=== PATIENT | male | born 1965 | race Caucasian/White ===

== ENCOUNTER 2023-02-04 15:23 | Outpatient (OUT) | payer OTHER, SELFPAY ==
[2023-01-25 12:11] LABS: Prostate Specific Antigen Dx 1.86 ng/mL (<=4.00)
== END 2023-02-04 15:24 | disposition home or self-care (01) ==
LOC: LAB 15:23
PROVIDERS: PCP Family Medicine
DX: N40.1 Benign prostatic hyperplasia with lower urinary tract symptoms (principal); Z79.01 Long term (current) use of anticoagulants; N52.9 Male erectile dysfunction, unspecified
CPT/HCPCS: 36415; 84153

== ENCOUNTER 2024-01-29 07:36 | Outpatient (OUT) | payer OTHER, SELFPAY ==
[2024-01-29 10:11] LABS: Prostate Specific Antigen Dx 1.87 ng/mL (<=4.00)
== END 2024-01-29 07:37 | disposition home or self-care (01) ==
LOC: LAB 07:37
PROVIDERS: PCP Family Medicine; Visit Provider Physician Assistant
DX: N40.1 Benign prostatic hyperplasia with lower urinary tract symptoms (principal)
CPT/HCPCS: 36415; 84153

== ENCOUNTER 2025-02-12 08:46 | Outpatient (OUT) | payer OTHER, SELFPAY ==
--- OUTSIDE RECORDS SUMMARY | 2025-02-12 08:48 | XMS_ITS | Clinical Summary ---
Author Organization [facility] Address [id number] [address] 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 3 9 Active therapeutic multivitamin (THERAGRAN) tablet Take 1 tablet by mouth in the morning. 4 Active FLUoxetine (PROzac) 20 mg capsule Take 1 capsule (20 mg total) by mouth in the morning. Active vitamins A,C,S-qpuv-mjjeav (HEALTHY EYES SUPERVISION) 14,320226-200 udkh-mh-tkak capsule Take 1 capsule by mouth in the morning and 1 capsule before bedtime. Active lamoTRIgine (LaMICtal) 150 mg tablet Take 1 tablet (150 mg total) by mouth in the morning. Active omeprazole (PriLOSEC) 40 mg capsule Take 1 capsule (40 mg total) by mouth every morning before breakfast. Active cetirizine (ZyrTEC) 10 mg tablet Take 1 tablet (10 mg total) by mouth as needed. Active aspirin 81 mg Take 1 tablet (81 mg total) by mouth in the morning. Active tamsulosin (FLOMAX) 0.4 mg capsule Take 2 capsules (0.8 mg total) by mouth nightly. 180 capsule 3 5 Active metoprolol succinate XL (TOPROL XL) 25 mg 24 hr tablet Take 1 tablet (25 mg total) by mouth in the morning. Active tadalafiL (CIALIS) 5 mg tablet Take 1 tablet (5 mg total) by mouth in the morning. 90 tablet 3 Active Active Problems Problem Noted Date Diagnosed Date Benign prostatic hyperplasia with lower urinary tract symptoms 07/02/2024 Urologic disorders 04/15/2024 Overview (12/03/2024): 1. 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 Estrada urologist [facility] Flomax 0.4 mg daily also with use of hyoscyamine 0.125 mg 3 times daily p.r.n. and metoprolol 2. with children ED, hypertension, smoking complicated by heart racing with Viagra and failure Viagra with prior urologist 3. Intolerance Viagra secondary to arrhythmias 3. with children with left varicocele 4. Flow 07/07/2024 peak and mean 8.3 and 3.9 PVR 16 low voided volume 110 5. Right simple renal cyst retroperitoneal ultrasound 07/07/2024 Encounters Date Type Department Care Team Description 12/03/2024 10:15 AM EDT Office Visit [facility] [address] [place] [address] [place] [address] Km García Jr., MD Urologic disorders (Primary Dx); Benign prostatic hyperplasia with nocturia from Last 3 Months Social History Tobacco Use Types Packs/Day Years Used Date Smoking Tobacco: Never Smokeless Tobacco: Current Chew Tobacco Cessation:Ready to Q uit: Not Asked; Counseling Given: Not Answered Alcohol Use Standard Drinks/Week Comments Yes 6 (1 standard drink = 0.6 oz pur e alcohol) 6 beers a week Childcare Answer Date Recorded Childcare Unknown 12/02/2018 Employment Answer Date Recorded Employment Unknown 12/02/2018 Hunger Screening Answer Date Recorded Within the past 12 months we worried whether our food would run out before we got money to buy more. Never True 12/03/2024 Within the past 12 months th e food we bought just didn't last and we didn't have money to get more. Never True 12/03/2024 Purpose - Life Answer Date Recorded Purpose and direction in life Unknown Sex and Gender Information Value Date Recorded Sex Assigned at Not on file Legal Sex Male 11:42 AM EDT Gender Identity Not on file Sexual Orientation Not on file Last Filed Vital Signs Vital Sign Reading Time Taken Comments Blood Pressure 132/77 09/03/2024 11:59 AM EDT Pulse 75 09/03/2024 11:59 AM EDT Temperature - - Respiratory Rate - - Oxygen Saturation 97% 03/15/2019 3:17 PM EDT Inhaled Oxygen Concentration - - Weight 122 kg (269 lb) 12/03/2024 10:33 AM EDT Height 188 cm (6' 2 ) 12/03/2024 10:33 AM EDT Body Mass Index 34.54 12/03/2024 10:33 AM EDT Plan of Treatment Upcoming Encounters Date Type Department Care Team (Late st Contact Info) Description 03/04/2025 9:15 AM EDT Office Visit [facility] [address] [place] [address] [place] [address] Km García Jr., MD [address] [place] [address] Health Maintenance Due Date Last Done Comments Tobacco Counseling 1966 Depression Screening 1978 Adult BMI Follow Up Plan 1984 DTaP,Tdap and Td Vaccines (1 - Tdap) 1985 Zoster (Shingles) Vaccine (1 of 2) 2016 Influenza Vaccine 02/21/2025 Adult BMI Screening 12/03/2025 12/03/2024 Tobacco Screening 12/03/2025 12/03/2024 Medical Devices Not on file Insurance [employer] Care Teams Electric Drill Operator Relationship Specialty Start Date End Date Jazzmine Skinner MD PCP - General Family Medicine 01/29/19
--- OUTSIDE RECORDS SUMMARY | 2025-02-12 08:48 | XMS_ITS | Clinical Summary ---
Author Organization [facility] Address [address] [place] [id number] Care Team Providers Care Family Medicine Physician Assistant Name Role Phone Jazzmine Skinner MD Primary Care Provider [phone] Allergies Active Allergy Reactions Criticality Noted Date Comments Seasonal Allergies Itching 05/31/2013 Medications antiox#10-om3-dh y-aey-qnm-zeax (I-CAPS) 280-10-2 mg cap Take 2 capsules by mouth twice daily. Active Aspirin 81 mg tab Take 1 tablet by mouth once daily. 30 tablet 0 4 Active therapeutic multivitamin tablet Take 1 tablet by mouth once daily. 30 tablet 0 4 Active Amoxicillin 500 mg tablet Take 6 capsules one hour before procedure and 2 capsules six hours after procedure 24 tablet 0 5 Active Additional Information Patient not taking.Reason: Discontinued by Patient, Reported on 05/09/2021 lamoTRIgine (LAMICTAL) 100 mg tablet Take 150 mg by mouth once daily. Active metoprolol succinate ER (TOPROL XL) 25 mg 24 hr tablet Take 25 mg by mouth once daily. Active doxazosin (CARDURA) 1 mg tablet Take 1 mg by mouth daily at bedtime. Active omeprazole (PRILOSEC) 40 mg capsule Take 40 mg by mouth once daily. Active losartan (COZAAR) 25 mg tablet Take 25 mg by mouth once daily. Active FLUoxetine HCl 20 mg tablet Take 20 mg by mouth once daily. Active sildenafil (VIAGRA) 100 mg tablet Take 100 mg by mouth as needed. Active oxyCODONE-acetam inophen (PERCOCET) 5-325 mg tabletIndication s:Closed trimalleolar fracture of left ankle with routine healing, subsequent encounter Take 1 tablet by mouth every 6 hours as needed. 28 tablet Active Additional Information Patient not taking.Reason: Course of Therapy Completed, Reported on 02/27/2021 Active Problems Problem Noted Date Diagnosed Date Nicotine use disorder, F17.2 12/25/2020 Obesity, Class I, BMI 30-34.9 12/25/2020 Trimalleolar fracture of ank le, closed, left, initial encounter 12/24/2020 S/P total hip arthroplasty 08/16/2013 Osteoarthritis of right hip 05/31/2013 Overview (05/31/2013): Mild Resolved Problems Problem Noted Date Diagnosed Date Resolved Date Osteoarthritis of left hip 05/31/2013 0 12/12/2014 Family History Medical History Relation Comments Heart Father Hypertension Mother Relation Status Comments Father Mother Social History Tobacco Use Types Packs/Day Years Used Date Smoking Tobacco: Never Smokeless Tobacco: Current Chew Comments:FOR 27 YEARS, 1 CAN EVERY 2 DAYS Alcohol Use Standard Drinks/Week Comments Yes 0.5 (1 standard drink = 0.6 oz p ure alcohol) social Area Deprivation Index Answer Date Ramsey rded National Score (1-100), lower number is lower ri sk Not on file 05/31/2020 State Score (1-10), lower number is lower risk N ot on file 05/31/2020 Data from: https://www.neighborhoodatlas.medicine.[facility].edu/. Last address used for calculation Not on file 05/31/2020 Sex and Gender Information Value Date Recorded Sex Assigned at Not on file Legal Sex Male 1:28 PM EDT Gender Identity Not on file Sexual Orientation Not on file Last Filed Vital Signs Vital Sign Reading Time Taken Comments Blood Pressure 132/77 12/25/2020 2:32 PM EDT Pulse 81 12/25/2020 2:32 PM EDT Temperature 36.9 C (98.4 F) 12/25/2020 2:32 PM EDT Respiratory Rate 18 05/09/2021 8:19 AM EST Oxygen Saturation 94% 12/25/2020 2:32 PM EDT Inhaled Oxygen Concentration - - Weight 113.4 kg (250 lb) 05/09/2021 8:19 AM EST Height 188 cm (6' 2 ) 05/09/2021 8:19 AM EST Body Mass Index 32.1 05/09/2021 8:19 AM EST Plan of Treatment Health Maintenance Due Date Last Done Comments Anxiety Screening 1984 Depression Screening 1984 HIV Screening 1984 Hepatitis C Screening 1984 DTaP,Tdap,Td Vaccine (1 - Tdap) 1985 Hepatitis B Vaccine (1 of 3 - 19+ 3-dose series) [address] Colonography 12/02/2011 Cologuard (FIT-DNA) 12/02/2011 Colonoscopy 12/02/2011 Colorectal Cancer Screening 12/02/2011 Fecal Occult Blood 12/02/2011 Prostate Cancer Screening Discussion 12/02/2011 Sigmoidoscopy 12/02/2011 Pneumococcal Vaccine: 50+ (1 of 1 - PCV) 2016 Shingrix Vaccine (1 of 2) 2016 Diabetes Screening 12/24/2023 12/23/2020, 0 06/30/2013, 05/31/2013 Influenza Vaccine (#1) 2025 Medical Devices Implanted Type Area Slps Device Identifier Shelf Expiration Date Model / Serial / Lot Shell Actb Hmsphr Sb Trdnt - [id number] Implanted:Qty: 1 on 06/29/2013 at [facility] Joint - Hip Left: Bone - Hip [employer] 04/20/2017 [id number] / / [id number] Stem Fem Cit Tmzf Bose 6 Lt Hip - [id number] Implanted:Qty: 1 on 06/29/2013 at [facility] Joint - Hip Left: Bone - Hip [employer] 05/12/2018 [id number] / / [id number] Head Fem +4mm 32mm Hip Al V40 - [id number] Implanted:Qty: 1 on 06/29/2013 at [facility] Joint - Hip Left: Bone - Hip [employer] 06/27/2017 [id number] / / [id number] Ins Actb 32mm F Al Trdnt - [id number] Implanted:Qty: 1 on 06/29/2013 at [facility] Joint Left: Bone - Hip [employer] [employer] 04/29/2017 [id number] / / [id number] Plate Dcp Lc-Dcp 12mm 1/3 Tube Stainless Steel [id number] .5mm Bone 8 Hole - [id number] Implanted:Qty: 1 on 12/24/2020 at [facility] Plate Left: Bone - Ankle [employer] [place] 241.38 / / [id number] Screw Lcp 4mm Short Thread Stainless Steel 42mm Bone Cannulated Short - [id number] Implanted:Qty: 1 on 12/24/2020 at [facility] Screw Left: Bone - Ankle [employer] [place] 207.642 / / Screw Lcp 4mm 6mm Partial Thread Stainless Steel 20mm Bone Small Hexagonal - [id number] Implanted:Qty: 2 on 12/24/2020 at [facility] Screw Left: Bone - Ankle [employer] [place] 206.020 / / Screw Lc-Dcp Dcp 3.5mm 6mm Full Thread Stainless Steel 14mm Bone Self Tap - [id number] Implanted:Qty: 3 on 12/24/2020 at [facility] Screw Left: Bone - Ankle [employer] [place] 204.814 / / Screw Dcp 2.7mm Short Thread Stainless Steel 20mm Bone Self Tapping Small - [id number] Implanted:Qty: 1 on 12/24/2020 at [facility] Screw Left: Bone - Ankle [employer] [place] 202.820 / / Screw Lcp 4mm 5mm 1.35mm 2.5mm Short Thread Small Hexagon Shi Stainless - [id number] Implanted:Qty: 1 on 12/24/2020 at [facility] Screw Left: Bone - Ankle [employer] [place] 207.644 / / Guidewire 1.25mm 150mm Orthopedic Thread 3.5mm Cannulated Screw Nonsterile - [id number] Implanted:Qty: 1 on 12/24/2020 at [facility] Wire Left: Bone - Ankle [employer] [place] 900.722 / / Procedures Procedure Name Priority Date/Time Associated Diagnosis Comments BASIC METABOLIC PANEL Routine 12/23/2020 10:55 PM EDT from Last 3 Months or Most Recently Relevant to Health Maintenance Results * (ABNORMAL) BASIC METABOLIC PNL (12/23/2020 10:55 PM EDT) [facility] Glucose 97 74 - 99 mg/dL 12/23/2020 11:30 PM EDT [facility] Comment: The [place] Diabetes Association (ADA) provides guidance for cutoff values for fasting glucose and random glucose. The ADA defines fasting as no caloric intake for at least 8 hours. Fasting plasma glucose results between 100 to 125 mg/dL indicate increased risk for diabetes (prediabetes). Fasting plasma glucose results greater than or equal to 126 mg/dL meet the criteria for diagnosis of diabetes. In the absence of unequivocal hyperglycemia, results should be confirmed by repeat testing. In a patient with classic symptoms of hyperglycemia or hyperglycemic crisis, random plasma glucose results greater than or equal to 200 mg/dL meet the criteria for diagnosis of diabetes. Reference: Standards of Medical Care in Diabetes 2016, [place] Diabetes Association. Diabetes Care. 2016.39(Suppl 1). BUN 13 9 - 24 mg/dL 12/23/2020 11:30 PM EDT [facility] Creatinine 0.87 0.73 - 1.22 mg/dL 12/23/2020 11:30 PM EDT [facility] Sodium 141 136 - 144 mmol/L 12/23/2020 11:30 PM EDT [facility] Potassium 3.8 3.7 - 5.1 mmol/L 12/23/2020 11:30 PM EDT [facility] Chloride 106(H) 97 - 105 mmol/L 12/23/2020 11:30 PM EDT [facility] CO2 28 22 - 30 mmol/L 12/23/2020 11:30 PM EDT [facility] Anion Gap 7(L) 9 - 18 mmol/L 12/23/2020 11:30 PM EDT [facility] Calcium, Total 9.0 8.5 - 10.2 mg/dL 12/23/2020 11:30 PM EDT [facility] eGFR- >60 12/23/2020 11:30 PM EDT [facility] eGFR-All Other Races >60 12/23/2020 11:30 PM EDT [facility] Comment: eGFR (Estimated GFR) Units of measure: mL/min/1.73 meters squared eGFR is derived from the reexpressed MDRD Study equation using the following parameters: serum creatinine, age, gender and race. The creatinine assay has been calibrated to be traceable to IDMS. An eGFR <60 mL/min/1.73m2 for >3 months is consistent with chronic kidney disease. Refer to KDOQI guidelines for clinical interpretation. In patients with unstable renal function, e.g. those with acute kidney injury, the eGFR may not accurately reflect actual GFR. Blood BLOOD SPECIMEN / Unknown Venipuncture / Unknown 12/23/2020 10:55 PM EDT 12/23/2020 11:01 PM EDT us Rere Marc MD LABORATORY Final Result [facility] [address] [place] [address] from Last 3 Months or Most Recently Relevant to Health Maintenance Care Teams Family Medicine Physician Assistant Relationship Specialty [place] [address] [place] [phone] PCP - General Family Medicine 12/23/20
--- OUTSIDE RECORDS SUMMARY | 2025-02-12 08:48 | XMS_ITS | Clinical Summary ---
Author Organization [facility] Healthcare Address [address] [facility] [place] [address] Care Team Providers Care Wildlife Photographer Name Role Phone Unavailable Primary Care Provider Unavailabl e Social History Tobacco Use Types Packs/Day Years Used Date Smoking Tobacco: Never Assessed Sex and Gender Information Value Date Recorded Sex Assigned at Not on file Legal Sex Male 6:41 PM EDT Gender Identity Not on file Sexual Orientation Not on file Plan of Treatment Not on file
--- OUTSIDE RECORDS SUMMARY | 2025-02-12 08:50 | XMS_ITS | CCD ---
Author Organization [facility] Care Team Providers Care Printing Plate Maker Name Role Phone Humberto Loaiza Attending Provider Crescencio Perez Primary Care Provider [phone] Humberto Loaiza Unavailable SEAN KHAN, DR COOKIE Kessler Consulting Unavailhaylie ESTRADA JR, DR COOKIE Kessler Admitting Unavailhaylie e ANA, DR CRESCENCIO Pollard Primary Care Unavailable SEAN KHAN, DR COOKIE Kessler Attending Unavailhaylie e ANA, DR CRESCENCIO Pollard Primary Care Unavailable SHAIKH Makenzie GO Admitting Unavailable SHAIKH Makenzie GO Attending Unavailable SHAIKH Makenzie GO Consulting Unavailable ANA, DR CRESCENCIO Pollard Admitting Unavailable ANA, DR CRESCENCIO Pollard Attending Unavailable ANA, DR CRESCENCIO Pollard Consulting Unavailable ANA, DR CRESCENCIO Pollard Primary Care Unavailable CRESCENCIO PEREZ Primary Care Physician Crescencio Perez Unavailable Sukhi Campbell Unavailable Crescencio Perez MD Primary Care Provider [phone] Humberto Loaiza Attending Unavailable Humberto Loaiza Admitting Unavailable Crescencio Perez Primary Care Unavailable NATALIA KUNZ Attending Unavailable Crescencio Perez MD Primary Care Provider WOLFGANG BOGGS JR Referring Unavailable CRESCENCIO PEREZ Primary Care Unavailable WOLFGANG BOGGS JR Admitting Unavailable WOLFGANG BOGGS JR Attending Unavailable WOLFGANG BOGGS JR Referring Unavailable CRESCENCIO PEREZ Primary Care Unavailable WOLFGANG BOGGS JR Attending Unavailable WOLFGANG BOGGS JR Referring Unavailable CRESCENCIO PEREZ Primary Care Unavailable WOLFGANG BOGGS JR Referring Unavailable CRESCENCIO PEREZ Primary Care Unavailable WOLFGANG BOGGS JR Attending Unavailable WOLFGANG BOGGS JR Referring Unavailable CRESCENCIO PEREZ E Primary Care Unavailable WOLFGANG BOGGS JR Attending Unavailable CRESCENCIO PEREZ Referring Unavailable CRESCENCIO PEREZ E Primary Care Unavailable WOLFGANG BOGGS JR Attending Unavailable CRESCENCIO PEREZ Referring Unavailable CRESCENCIO PEREZ E Primary Care Unavailable WOLFGANG BOGGS JR Attending Unavailable CRESCENCIO PEREZ E Referring Unavailable TA PEREZIA E Primary Care Unavailable Crescencio Perez MD Primary Care Provider Crescencio Perez MD Attending Provider Allergies Allergy Classification Reported Allergen(s) Allergy Type Date of Onset Reaction(s) Facility (1 source) Morphine Drug Allergy [facility] Repository (2 sources) patient allergy list reviewed by nurse or physicia Propensity to adverse reactions 9 Comment:Done [facility] Other (2 sources) Allergies Reconciled Propensity to adverse reactions Unknown [facility] Other (6 sources) Other; Translations: [OTHER] Propensity to adverse reactions 3 Itching [place] (1 source) No Known Medication Allergies; Translations: [No Known Medication Allergies] Propensity to adverse reactions (disorder) [facility] Repository Medications Current Medications Medication Drug Class(es) Dates Sig (Normalized) Sig (Original) A-C-E-Zinc Ox-Selen Aa-Copper (Vision Formula(A-C-E-Zn-Se -Cu)) 1,000 unit-60 mg-30 unit tablet (1 source) Start: 02-03-2025 A-C-E-Zinc Ox-Selen Aa-Copper (Vision Formula(A-C-E-Zn-S e-Cu)) 1,000 unit-60 mg-30 unit tablet Active TAB PO February 03, 2025 12:00am Complies with drug therapy ascorbic acid 226 mg / beta carotene 70923 unt / cuprous oxide 0.8 mg / dl-alpha tocopheryl acetate 200 unt / zinc oxide 34.8 mg oral capsule (7 sources) Vitamin C take 1 capsule by mouth in the morning vitamins A,C,V-yzkd-ymbupm (HEALTHY EYES SUPERVISION) [phone] klrx-ur-hkar capsule Take 1 capsule by mouth in the morning and 1 capsule before bedtime. Active take 1 capsule by mouth twice da radha vitamins A,C,W-vvdb-nfcrzt (HEALTHY EYES SUPERVISION) [phone] wpdy-ti-ricr capsule Take 1 capsule by mouth 2 (two) times a day. Active aspirin 81 mg oral tablet (20 sources) Platelet Aggregation Inhibitor, Nonsteroidal Anti-inflammatory Drug Start: 02-09-2019 take 1 tablet by mouth once daily Aspirin 81 mg Tablet Active 81 MG PO Daily October 16, 2020 12:00am Complies with drug therapy take 1 tablet by mouth in the mo rning aspirin 81 mg Take 1 tablet (81 mg total) by mouth in the morning. Active Aspirin 81 Activ e cetirizine hydrochloride 10 mg oral tablet (6 sources) Histamine-1 Receptor Antagonist cetirizine (ZyrTEC) 10 mg tablet Take 1 tablet (10 mg total) by mouth as needed. Active lamoTRIgine 150 mg oral tablet (20 sources) Mood Stabilizer, Anti-epileptic Agent Start: End: take 1 tablet by mouth once daily Lamotrigine 150 mg tablet Active 0 .ROUTE .COMPLEX January 28, 2025 2:03pm TAKE 1 TABLET BY MOUTH DAILY Complies with drug therapy Start: 02-09-2019 End: 10-13-2023 take 1 tablet by mouth once daily Lamotrigine 150 mg tablet Discontinued 150 MG PO Daily October 13, 2023 12:00am October 13, 2023 12:58pm lamoTRIgine Acti ve losartan potassium 25 mg oral tablet (20 sources) Angiotensin 2 Receptor Venancio Start: 10-13-2023 End: 01-17-2025 take 1 tablet by mouth once daily Losartan 25 mg tablet Active 0 .ROUTE .COMPLEX January 17, 2025 3:46pm TAKE 1 TABLET BY MOUTH DAILY Complies with drug therapy Start: 02-09-2019 End: 10-13-2023 take 1 tablet by mouth once daily Losartan 25 mg tablet Discontinued 25 MG PO Daily September 25, 2023 12:00am October 13, 2023 12:58pm 24 hr metoprolol succinate 25 mg extended release oral capsule (18 sources) beta-Adrenergic Venancio Start: 10-16-2020 take 1 capsule by mouth once daily Metoprolol Succinate 25 mg Capsule,Alicia,Er 24hr Active 25 MG PO Daily October 16, 2020 12:00am Complies with drug therapy take 1 tablet by karan th every twenty-four hours in the morning metoprolol succinate XL (TOPROL XL) 25 m g 24 hr tablet Take 1 tablet (25 mg total) by mouth in the morning. Active Metoprolol Succi maida Active Multi Vitamin+ (3 sources) Start: 02-09-2019 Multi Vitamin+ Refill(s) 0 Start Date: 02/09/19 Status: Ordered Multivitamin preparation (9 sources) Multivitamin Active sildenafil 100 mg oral tablet (5 sources) Phosphodiesterase 5 Inhibitor Start: 02-09-2019 End: 07-02-2024 sildenafil 100 mg Tab 100 mg = 1 tab(s), Oral, As Directed, # 30 tab(s), Refills(s) 5, Pharmacy: [id number], 188, cm, 10/05/20 16:01:00 EDT, Height/Length Dosing, 118.2, kg, 10/05/20 16:01:00 EDT, Weight Dosing Start Date: 10/10/20 Status: Ordered tadalafil 5 mg oral tablet (1 source) Phosphodiesterase 5 Inhibitor Start: 12-03-2024 take 1 tablet by mouth in the morning tadalafiL (CIALIS) 5 mg tablet Take 1 tablet (5 mg total) by mouth in the morning. 90 tablet 3 12/03/2024 Active tamsulosin hydrochloride 0.4 mg oral capsule (18 sources) alpha-Adrenergic Venancio Start: 09-03-2024 take 2 capsules by mouth once daily tamsulosin (FLOMAX) 0.4 mg capsule Take 2 capsules (0.8 mg total) by mouth nightly. 180 capsule 3 09/03/2024 Active Start: 10-23-2021 End: 09-03-2024 take 1 capsule by mouth once daily Tamsulosin 0.4 mg capsule Active 0.4 MG PO Daily September 25, 2023 12:00am Complies with drug therapy therapeutic multivitamin (THERAGRAN) tablet (7 sources) Start: 07-01-2013 take 1 tablet by mouth in the morning therapeutic multivitamin (THERAGRAN) tablet Take 1 tablet by mouth in the morning. 07/01/2013 Active Start: 07-01-2013 take 1 tablet by karan th once daily therapeutic multivitamin (THERAGRAN) tablet Take 1 tablet by mouth daily. 07/01/2013 Active Vision Formula (9 sources) Vision Formula A ctive Completed/Discontinued Medications Medication Drug Class(es) Dates Sig (Normalized) Sig (Original) aspirin 81 mg / calcium carbonate 777 mg oral tablet (2 sources) Platelet Aggregation Inhibitor, Nonsteroidal Anti-inflammatory Drug Start: 07-01-2013 End: 07-02-2024 take 1 tablet by mouth once daily aspirin-calcium carbonate 81 mg-300 mg calcium(777 mg) tablet Take 81 mg by mouth daily. 07/01/2013 07/02/2024 Discontinued (Alternate therapy) doxazosin 4 mg oral tablet (17 sources) alpha-Adrenergic Venancio Start: 02-03-2025 End: 02-08-2025 take 1 tablet by mouth once daily Doxazosin 4 mg tablet Discontinued 4 MG PO Daily February 03, 2025 12:00am February 08, 2025 3:12pm Start: 10-16-2020 End: 09-25-2023 take 1 tablet by mouth once daily Doxazosin 1 mg Tablet Discontinued 1 MG PO Daily October 16, 2020 12:00am September 25, 2023 11:30am Doxazosin Mesyla te Active FLUoxetine 20 mg oral tablet (20 sources) Serotonin Reuptake Inhibitor Start: 12-09-2023 End: 06-14-2024 take 1 tablet by mouth once daily Fluoxetine 20 mg tablet Discontinued 0 .ROUTE .COMPLEX 90 March 09, 2024 8:10am June 14, 2024 10:33pm TAKE 1 TABLET BY MOUTH EVERY DAY Start: 02-09-2019 End: 12-09-2023 take 1 tablet by mouth once daily Fluoxetine 20 mg tablet Discontinued 20 MG PO Daily September 25, 2023 12:00am December 09, 2023 8:33am take 1 capsule by [facility] in the morning FLUoxetine (PROzac) 20 mg capsule Take 1 capsule (20 mg total) by mouth in the morning. Active hyoscyamine sulfate 0.125 mg oral tablet (7 sources) Start: 09-25-2023 End: 02-08-2025 take 1 tablet by mouth three times daily as needed Hyoscyamine Sulfate (Levsin) 0.125 mg tablet Discontinued 0.125 MG PO Three times daily as needed for dyspepsia September 25, 2023 12:00am February 08, 2025 3:11pm Multivit With Min-Folic Acid (Men's Daily Formula) 0.4 mg Tablet (7 sources) Start: 10-16-2020 End: 02-08-2025 take 1 tablet by mouth once daily Multivit With Min-Folic Acid (Men's Daily Formula) 0.4 mg Tablet Discontinued 1 TAB PO Daily October 16, 2020 12:00am February 08, 2025 3:13pm Start: 10-16-2020 take 1 tablet by karan th once daily Multivit With Min-Folic Acid (Men's Daily Formula) 0.4 mg Tablet Active 1 TAB PO Daily October 15, 2020 11:00pm Start: 10-16-2020 take 1 tablet by karan th once daily Multivit With Min-Folic Acid (Men's Daily Formula) 0.4 mg Tablet Active 1 TAB PO Daily October 16, 2020 12:00am omeprazole 40 mg delayed release oral capsule (20 sources) Proton Pump Inhibitor Start: 04-21-2024 End: 05-05-2024 take 1 capsule by mouth once daily Omeprazole 40 mg capsule,delayed release(DR/EC) Discontinued 40 MG PO Daily April 21, 2024 10:45am May 05, 2024 2:12pm Start: 10-16-2020 End: 04-21-2024 take 1 capsule by mouth twice daily Omeprazole 40 mg capsule,delayed release(DR/EC) Discontinued 40 MG PO Twice daily 112 56 October 16, 2020 12:00am April 21, 2024 8:49am triamcinolone acetonide 40 mg/ml injectable suspension (5 sources) Corticosteroid Start: 11-26-2022 Kenalog-40 Feb, 60 mg Vitamin A-Vitamin C-Vit E-Min (Ocuvite) Tablet (7 sources) Start: 10-16-2020 End: 02-08-2025 take 1 tablet by mouth once daily Vitamin A-Vitamin C-Vit E-Min (Ocuvite) Tablet Discontinued 1 TAB PO Daily October 16, 2020 12:00am February 08, 2025 3:13pm Start: 10-16-2020 take 1 tablet by karan th once daily Vitamin A-Vitamin C-Vit E-Min (Ocuvite) Tablet Active 1 TAB PO Daily October 15, 2020 11:00pm Start: 10-16-2020 take 1 tablet by karan th once daily Vitamin A-Vitamin C-Vit E-Min (Ocuvite) Tablet Active 1 TAB PO Daily October 16, 2020 12:00am Problems Active Problems Problem Classification Problem Date Documented Da te Episodic/Chronic Allergic reactions (2 sources) Allergic contact dermatitis due to plants, except food; Translations: [Allergic contact dermatitis due to plants, except food] Episodic Esophageal disorders (20 sources) Polanco's esophagus; Translations: [Polanco's esophagus without dysplasia] Onset: 08-01-2021 Resolved: 12-28-2021 Chronic Essential hypertension (8 sources) Essential (primary) hypertension; Translations: [Hypertensive disorder] Onset: 04-21-2015 02-09-2019 Chronic Genitourinary symptoms and ill-defined conditions (3 sources) Post-micturition incontinence 01-02-2019 Chronic Genitourinary symptoms and ill-defined conditions (16 sources) Poor stream of urine; Translations: [Disorder of the urinary system] Onset: 04-15-2024 01-02-2019 Episodic Hyperplasia of prostate (20 sources) Benign prostatic hyperplasia with lower urinary tract symptoms; Translations: [Benign prostatic hypertrophy with outflow obstruction] Onset: 01-08-2022 Chronic Comment on above: Problem List clean-u p per request of Phys. EHR Cmte Miscellaneous mental health disorders (8 sources) Male erectile disorder; Translations: [Erectile dysfunction] Onset: 05-19-2018 Chronic Mood disorders (2 sources) Affective psychosis; Translations: [Unspecified mood [affective] disorder] Onset: 04-21-2015 Chronic Other aftercare (1 source) Long-term current use of anticoagulant; Translations: [care home (current) use of anticoagulants] Onset: 01-15-2022 Episodic Other aftercare (2 sources) Long-term current use of aspirin; Translations: [barrel filler head (current) use of aspirin] Onset: 01-29-2023 Episodic Other circulatory disease (2 sources) Elevated blood-pressure reading without diagnosis of hypertension; Translations: [Elevated blood-pressure reading, without diagnosis of hypertension] Episodic Other gastrointestinal disorders (9 sources) Dysphagia; Translations: [Dysphagia, unspecified] Episodic Other gastrointestinal disorders (7 sources) Acute diarrhea; Translations: [Diarrhea, unspecified] 09-25-2023 Episodic Other gastrointestinal disorders (2 sources) Diarrhea, unspecified; Translations: [Diarrhea] 09-25-2023 Episodic Other injuries and conditions due to external causes (2 sources) Late effect of injury; Translations: [Unspecified injury of unspecified ankle, sequela] Episodic Other injuries and conditions due to external causes (1 source) Traumatic AND/OR non-traumatic injury; Translations: [Other injury of unspecified body region, initial encounter] Onset: 02-12-2024 Episodic Other male genital disorders (3 sources) Impotence 01-15-2022 Chronic Other male genital disorders (3 sources) Secondary erectile dysfunction 12-16-2020 Chronic Other nutritional; endocrine; and metabolic disorders (2 sources) Obese class I; Translations: [Body mass index (BMI) 33.0-33.9, adult] Chronic Other nutritional; endocrine; and metabolic disorders (2 sources) Body mass index 30+ - obesity; Translations: [Body mass index 30.0-30.9, adult] Onset: 05-19-2017 Chronic Other screening for suspected conditions (not mental disorders or infectious disease) (16 sources) Encounter for screening for diabetes mellitus; Translations: [Encounter for screening for lipoid disorders] Onset: 05-01-2021 Episodic Other skin disorders (2 sources) Other seborrheic keratosis; Translations: [Seborrheic keratosis] Episodic Other upper respiratory disease (6 sources) Seasonal allergic rhinitis; Translations: [Other seasonal allergic rhinitis] Chronic Other upper respiratory disease (2 sources) Other seasonal allergic rhinitis Chronic Other upper respiratory disease (7 sources) Allergic rhinitis; Translations: [Allergic rhinitis, unspecified] Onset: 03-09-2015 02-26-2024 Chronic Other upper respiratory disease (1 source) Allergic rhinitis, unspecified; Translations: [Allergic rhinitis, cause unspecified] Onset: 03-09-2015 02-26-2024 Chronic Residual codes; unclassified (8 sources) Obstructive sleep apnea syndrome; Translations: [Obstructive sleep apnea] Onset: 11-10-2017 01-22-2024 Chronic Residual codes; unclassified (1 source) Obstructive sleep apnea (adult) (pediatric); Translations: [Obstructive sleep apnea (adult)(pediatric)] 01-22-2024 Chronic Spondylosis; intervertebral disc disorders; other back problems (2 sources) Lumbar radiculopathy; Translations: [Radiculopathy, lumbar region] Episodic Unclassified (2 sources) CONTACT W/AND (SUSP) EXPOS COVID-19; Translations: [CONTACT W/AND (SUSP) EXPOS COVID-19] Onset: 06-19-2021 Unclassified (3 sources) Drug therapy finding 04-14-2019 Unclassified (3 sources) Finding of sensation of bladder 02-09-2019 Unclassified (2 sources) Long-term current use of aspirin 01-29-2023 Unclassified (1 source) Benign prostatic hyperplasia with lower urinary tract symptoms, symptom details unspecified [N40.1] Onset: 10-01-2024 Unclassified (1 source) Benign Prostatic Hypertrophy Onset: 07-02-2024 Viral infection (3 sources) COVID-19; Translations: [Disease caused by 2019-nCoV] Onset: 06-19-2021 Past or Other Problems Problem Classification Problem Date Documented Da te Episodic/Chronic Malaise and fatigue (2 sources) Malaise and fatigue; Translations: [Other malaise and fatigue] Onset: 11-10-2017 Episodic Other nutritional; endocrine; and metabolic disorders (2 sources) Body mass index 25-29 - overweight; Translations: [Body mass index 29.0-29.9, adult] Onset: 05-19-2017 Episodic Other skin disorders (2 sources) Generalized hyperhidrosis; Translations: [Generalized hyperhidrosis] Onset: 11-10-2017 Episodic Residual codes; unclassified (2 sources) Requires influenza virus vaccination; Translations: [Need for prophylactic vaccination and inoculation, Influenza] Onset: 04-21-2015 Episodic Residual codes; unclassified (2 sources) Edema; Translations: [Edema] Onset: 01-11-2019 Episodic Unclassified (1 source) CONTACT W/AND (SUSP) EXPOS COVID-19; Translations: [CONTACT W/AND (SUSP) EXPOS COVID-19] Onset: 06-12-2021 Results Test Name Value Interpretation Reference Range Facility Measure post void residualon 09-03-2024 Volume 12ml [employer] System [employer] System Reminderson 08-18-2024 Reminders Reminders - From: Jamee Ervin To: EU - Administrative; Sent: 02/12/2024 12:00:31 EDT Show up: 07/24/2024 12:00:00 EST Subject: Ambulatory Reminder Due Date/Time: 02/04/2025 12:00:00 EDT Reminder/Recall Patient needs scheduled with [facility] for a 1 yr f/u with PSA, due back mid January 2025 Called patient on 18 August 2024 at 1146; patient is now seeing a new urologist doctor and would not like to schedule an appointment [facility] Prostate specific Ag [Mass/V ol]on 07-07-2024 PROSTATIC SPEC ANT 1.92 ng/mL Normal 0.00-4.00 [facility] Comment on above: Result Comment: The method used for this test is Laith DFMSim DXI chemiluminescent immunoassay. Values obtained by different assay methods cannot be used interchangeably. Performed By: #### 2 [id number] #### [facility] ([id number]) [address], [address] [place] [address] US RETROPERITONEAL COMPLETEo n 07-07-2024 US RETROPERITONEAL COMPLETE US RETROPERITONEAL COMPLETE ULTRASOUND RETROPERITONEUM INDICATION: Difficulty voiding. COMPARISON: None available. FINDINGS: Ultrasound evaluation of the kidneys and bladder was performed. Right kidney: 13.6 cm in maximal length. Lower pole cyst measures 4.5 cm, no follow-up is needed. No stone or collecting system dilatation. Left kidney: 13.8 cm in maximal length. No collecting system dilatation, calculi, or contour deforming mass lesion. Bladder: Unremarkable fluid filled bladder. Bladder volume: 202 mL. Both ureteral jets seen. Prostatomegaly measuring 55 mL. IMPRESSION: 1. No acute abnormality. No stone or collecting system dilatation. 2. Prostatomegaly. Finalized by David Walton MD on 07/07/2024 4:39 PM Normal [facility] Pathology Request for Lab Co rpon 05-31-2024 Pathology Request for Lab Johan Normal [facility] Comment on above: Order Comment: PATHO LOGY GI SPECIMEN Result Comment: See report. Scanned copy available in EMR. PERFORMED BY: [address] [place] [address] PATHOLOGIST ASSOCIATE [employer]CIAL PLANNER RENAE KHAN M.D. Performed By: #### P ATH TO [facility] #### [address] Ambulatory Visit Summaryon 0 02-12-2024 Ambulatory Visit Summary Ambulatory Visit Summary DOMINIC YU :1965 Visit Date:12/31/2018 Ambulatory Visit Instructions Your Diagnosis Anticoagulated Your Care Team Primary Care Physician - CRESCENCIO PEREZ MD This Is Your Medications List aspirin (aspirin 81 mg oral tablet) fluoxetine lamotrigine (lamotrigine 150 mg Tab) losartan (losartan 25 mg Tab) multivitamin (Multi Vitamin+) sildenafil (sildenafil 100 mg Tab) tamsulosin (tamsulosin 0.4 mg Cap) Procedures Performed Cystoscopy (06/29/2018), EGD (esophagogastroduode noscopy) gastric outlet reduction, Hip replacement, Tonsillectomy. Medications What How Much When Instructions New sildenafil (sildenafil 100 mg Tab) 1 Tablets By Mouth As Directed Refills: 5 Pickup at [facility] #[id number] Changed tamsulosin (tamsulosin 0.4 mg Cap) 1 Capsules By Mouth Every day Unchanged aspirin (aspirin 81 mg oral tablet) 1 Tablets By Mouth Every day Unchanged fluoxetine 20 Milligram By Mouth Every day Unchanged lamotrigine (lamotrigine 150 mg Tab) 1 Tablets By Mouth Every day Unchanged losartan (losartan 25 mg Tab) 1 Tablets By Mouth Every day Unchanged multivitamin (Multi Vitamin+) Pharmacy Information [facility] #[id number]: [address], [place] [id number] [phone] Allergies No Known Medication Allergies Problems Ongoing - Any problem that you are currently receiving treatment for. Anticoagulated Aspirin long-term use BPH with urinary obstruction Erectile dysfunction Feeling of incomplete bladder emptying Hypertension Impotence Post-void dribbling Premature ejaculation Weak urinary stream Patient Survey You may receive a survey via text or e-mail asking about your office visit. Please share your experience with us by completing your survey. We appreciate your feedback and thank you for choosing us for your care. [facility] Urology Office/Clinic Noteon 02-12-2024 Urology Office/Clinic Note Urology Office/Clinic Note Chief Complaint 1 yr fu HPI Staff 58 year old male here for 1 year F/U with PSA. Previous DX: BPH w/LUTS, ED and aspirin smooth stucco resurfacer use. Pt. is taking tamsulosin and Sildenafil 100mg PRN PSA 11/18/20 - 1.70 01/08/22 - 1.01/25/23 - 1.86 01/29/24 - 1.87 patient states he has had blood blisters on his testicles and wants to know what is causing them, states they do not cause him any pain but do pop open frequently Dysuria: no Incomplete bladder emptying: no Hematuria: no Frequency: no Urgency: no Nocturia: no Stream: good stream Leaking: no Post void dripping: mild Wearing pads/ Depends: no Urge incontinence: no Stress incontinence: no Incontinence without Sensory Awareness: no Abdominal pain: no Flank pain: no Sexual complaints: no History of Present Illness Tests reviewed: reviewed UA and PSAs I have reviewed the previous health record information and history for this patient from [facility]. I have reviewed and verified the staff HPI to be accurate for this encounter. Review of Systems PHQ Score Initial Depression Screen Score: 0 SCORE No fever, chills, malaise, myalgia. No rash/lesions. No chest pain, palpitations, or SOB. No abdominal pain, nausea, vomiting. No unilateral calf swelling, redness, pain Physical Exam Vitals & Measurements HR: 108(Peripheral) BP: 165/90 HT: 74 in HT: 188 cm WT: 116.4 kg WT: 256.08 lb BMI: 32.93 General: nontoxic, NAD Mouth: moist mucosa Lungs: normal respiratory effort Cardio: regular rate, good distal perfusion Abdomen: nondistended, no suprapubic distention or tenderness, no CVA tenderness Neurologic: Grossly normal Skin: No rashes or suspicious lesions Assessment/Plan 1. BPH with urinary obstruction (N40.1: Benign prostatic hyperplasia with lower urinary tract symptoms) Pt is taking tamsulosin and is highly satisfied with overall symptom control. Pt is experiencing no side effects. We discussed current dose and optional changes: increasing tamsulosin to BID adding an additional agent such as finasteride/dutaster sofie Pt prefers to continue current regimen with no changes at this time. PSA 11/18/20 - 1.70 01/08/22 - 1.01/25/23 - 1.86 01/29/24 - 1.87 IPSS 3. UA today negative for blood and infection. Reviewed PSA with pt, favorable and stable. Will continue to monitor. Pt is taking tamulosin bid. No urinary complaints. Denies gross hematuria or dysuria. -PSA in 1 year -Cont Tamsulosin 0.4mg BID, refills sent to [place] 2. Erectile dysfunction (F52.21: Male erectile disorder) Pt to continue Sildenafil 100mg PRN. Discussed different ED options if the pt were to be interested in the future. Does not wish to change anything right now. -Cont Sildenafil 100mg PRN 3. Aspirin long-term use (Z79.82: care home (current) use of aspirin) Pt currently taking aspirin 81mg qd. He has a history of cardiovascular disease. 4. Blood blister (T14.8XXA: Other injury of unspecified body region, initial encounter) Pt c/o blood blisters on his testicles and wants to know what is causing them, states they do not cause him any pain but do pop open frequently. Discussed with pt these are most likely due to friction. Instructed pt to try tighter fitting underwear or a different material. Pt agrees. Follow-up With When Contact Information SAMMY HUYNH, NATALIA Pollard, URL [address] [place] [address] Additional Instructions: 1 year w/PSA Patient Education Erectile Dysfunction Benign Prostatic Hyperplasia Documentation recorded by the salvador Rivera accurately reflects the services(s) I performed and decisions made by me. Authenticated by Natalia Kunz PA-C on 02/12/2024 12:05:15. Nora Stevens, personally scribed for Natalia Kunz PA-C on 02/12/2024 11:49:28. . Problem List/Past Medical History Ongoing Anticoagulated Aspirin long-term use BPH with urinary obstruction Erectile dysfunction Feeling of incomplete bladder emptying Hypertension Impotence Post-void dribbling Premature ejaculation Weak urinary stream Historical No qualifying data Procedure/Surgical History Cystoscopy (06/29/2018), EGD (esophagogastroduode noscopy) gastric outlet reduction, Hip replacement, Tonsillectomy. Medications aspirin 81 mg oral tablet, 81 mg= 1 tab(s), Oral, Daily fluoxetine, 20 mg, Oral, Daily lamotrigine 150 mg Tab, 150 mg= 1 tab(s), Oral, Daily losartan 25 mg Tab, 25 mg= 1 tab(s), Oral, Daily Multi Vitamin+ sildenafil 100 mg Tab, 100 mg= 1 tab(s), Oral, As Directed, 5 refills tamsulosin 0.4 mg Cap, 0.4 mg= 1 cap(s), Oral, Daily, 3 refills Allergies No Known Medication Allergies Social History Alcohol Current, Beer, Daily, 02/09/2019 Tobacco Former smoker, quit more than 30 days ago Tobacco Use:. Smokeless tobacco user within last 30 days Smokeless To (more content not included)... Normal [facility] Comment on above: Result Comment: Elec tronically Signed By: NATALIA KUNZ PA-C\.br\Date and Time Signed: 02/12/24 12:05 EDT\.br\Electronically Co-Signed By: Nora Rivera\.br\Date and Time Co-Signed: 02/12/24 11:49 EDT No Panel Informationon 01-28 Prostate Specific Antigen Total 1.87 ng/mL <=4.00 [facility]on 05-24 SARS-CoV-2 (COVID-19) RNA SUKUMAR+probe Ql (Unsp spec) Detected Critically abnormal NOT DETECTED [facility] Comment on above: Result Comment: This test is not yet approved or cleared by the [place] FDA. When there are no FDA-approved or cleared tests available, and other criteria are met, FDA can make tests available under an emergency access mechanism called an Emergency Use Authorization (EUA). The EUA for this test is supported by the [employer] Operator of Health and Human Service's (HHS's) declaration that circumstances exist to justify the emergency use of in vitro diagnostics for the detection and/or diagnosis of the virus that causes COVID-19. This EUA will remain in effect (meaning this test can be used) for the duration of the COVID-19 declaration justifying emergency of IVDs, unless it is terminated or revoked by FDA (after which the test may no longer be used). Performed By: #### C [facility] #### [facility] [address] [place] [address] Dr. Radha Maciel 05-09-2021 CNOV Office Visit (AGHWW1) DOMINIC YU ([id number]) 1965 M Date Time Provider Department 05/09/21 8:30 AM KWAME CEDILLO AGHWW1 During your visit today, we recorded the following information about you: Respiration Weight Height 18/minute 113.4 kg 1.88 m April Roche LPN 05/09/2021 9:15 AM Signed REVIEW OF SYSTEMS: GENERAL: Well developed, well nourished. No acute distress PAIN: Negative for pain, history of chronic pain or current treatment for chronic pain conditions CARDIOVASCULAR: Negative for chest pain, leg swelling and palpations. MSK: Negative for joint swelling SKIN: Negative for lesions, rash, itching, metal sensitivity NEURO: Negative for seizure, trauma, numbness/tingling of extremities. ENDOCRINE: Negative for diabetic associated symptoms HEMATOLOGY: Negative for excessive bleeding, clots, bleeding disorders. Kwame Cedillo MD 05/09/2021 9:15 AM Signed 05/09/2021 RE: Dominic Yu DATE OF : 1965 Vitals: Resp 18 Ht 6' 2 (1.88m) Wt 250 lb (113.4kg) BMI 32.08 kg/(m2). FOLLOW UP VISIT: Trimalleolar fracture left ankle HPI: He is doing much better at this time with walking. He states that the physical therapy has helped significantly the motion as well as the ambulation. REVIEW OF SYSTEMS: MUSCULOSKELETAL: Negative for joint pain or swelling, back pain or muscle pain PAST MEDICAL HISTORY Diagnosis Date - Hypertension - Psychiatric disorder PAST SURGICAL HISTORY Procedure Laterality Date - JOINT REPLACEMENT HX hip - PAST SURGICAL HISTORY OF Left 12/24/2020 ankle - PAST SURGICAL HISTORY OF Right 2000 right foot Social History Tobacco Use - Smoking status: Never Smoker - Smokeless tobacco: Current User Types: Chew - Tobacco comment: FOR 27 YEARS, 1 CAN EVERY 2 DAYS Vaping Use - Vaping Use: Never used Substance Use Topics - Alcohol use: Yes Alcohol/week: 0.0 standard drinks Types: 1 Cans of Beer (12oz) per week Comment: social - Drug use: Not on file ALLERGIES Allergen Reactions - Hay Fever [Seasonal* Itching Current Medications: Current Outpatient Medications Medication Sig Dispense Refill - omeprazole (PRILOSEC) 40 mg capsule Take 40 mg by mouth once daily. - losartan (COZAAR) 25 mg tablet Take 25 mg by mouth once daily. - sildenafil (VIAGRA) 100 mg tablet Take 100 mg by mouth as needed. - lamoTRIgine (LAMICTAL) 100 mg tablet Take 150 mg by mouth once daily. - Aspirin 81 mg tab Take 1 tablet by mouth once daily. 30 tablet 0 - therapeutic multivitamin tablet Take 1 tablet by mouth once daily. 30 tablet 0 - antiox#68-og2-hie-ep a-lut-zeax (I-CAPS) 280-10-2 mg cap Take 2 capsules by mouth twice daily. - oxyCODONE-acetaminop hen (PERCOCET) 5-325 mg tablet Take 1 tablet by mouth every 6 hours as needed. (Patient not taking: Reported on 02/27/2021) 28 tablet 0 - FLUoxetine HCl 20 mg tablet Take 20 mg by mouth once daily. (Patient not taking: Reported on 05/09/2021 ) - metoprolol succinate ER (TOPROL XL) 25 mg 24 hr tablet Take 25 mg by mouth once daily. (Patient not taking: Reported on 05/09/2021 ) - doxazosin (CARDURA) 1 mg tablet Take 1 mg by mouth daily at bedtime. (Patient not taking: Reported on 05/09/2021 ) - Amoxicillin 500 mg tablet Take 6 capsules one hour before procedure and 2 capsules six hours after procedure (Patient not taking: Reported on 05/09/2021 ) 24 tablet 0 No current facility-administere d medications for this visit. PHYSICAL EXAMINATION: He has good range of motion the left ankle there there is no instability on anterior posterior varus valgus stress. RADIOGRAPHIC EXAMINATION: See note IMPRESSION: Fracture left ankle PLAN: He should continue with progression of ambulation as tolerated. I am releasing him to further follow-up. Kwame Cedillo MD Referring Provider: SELF [200] Allergies As of Date: 05/09/2021 Noted Allergy Reaction HAY FEVER (SEASONAL ALLERGIES) 05/31/2013 9 - Itching Date Reviewed: 05/09/2021 Reviewed by: Kwame Cedillo MD - Fully Assessed Reason for Visit: Follow Up [171] Established Patient [175] Primary Visit Diagnosis:Closed trimalleolar fracture of left ankle with routine healing, subsequent encounter [X65.583O] Order(s):XR ANKLE 2V AP/LAT LEFT [[id number]] Order #: [id number] Prescriptions as of 05/09/2021 - oxyCODONE-acetaminop hen (PERCOCET) 5-325 mg tablet Take 1 tablet by mouth every 6 hours as needed. - omeprazole (PRILOSEC) 40 mg capsule Take 40 mg by mouth once daily. - losartan (COZAAR) 25 mg tablet Take 25 mg by mouth once daily. - FLUoxetine HCl 20 mg tablet Take 20 mg by mouth once daily. - sildenafil (VIAGRA) 100 mg tablet Take 100 mg by mouth as needed. - lamoTRIgine (LAMICTAL) 100 mg tablet Take 150 mg by mouth once daily. - metoprolol succinate ER (TOPROL XL) 25 mg 24 hr tablet Take 25 mg (more content not included)... Normal [facility] CBC AUTO DIFFon 05-01-2021 BASO # 0.1 103/ul Normal 0.0-0.1 [facility] Comment on above: Performed By: #### C BC #### [facility] [address] [address] [address] Radha Shelton Basophils/100 WBC (Bld) 1.3 % Normal 0.2-2.0 [facility] Comment on above: Performed By: #### C BC #### [facility] [address] [address] [address] Radha Shelton EO # 0.3 103/ul Normal 0.0-0.7 [facility] Comment on above: Performed By: #### C BC #### [facility] [address] [place] [address] Dr. Radha Shelton Eosinophils/100 WBC (Bld) 4.8 % Normal 0.9-7.0 [facility] Comment on above: Performed By: #### C BC #### [facility] [address] [place] [address] Dr. Radha Shelton Erythrocyte distribution width (RBC) [Ratio] 13.2 % Normal 11.0-15.0 [facility] Comment on above: Performed By: #### C BC #### [facility] [address] [place] [address] Dr. Radha Shelton Hematocrit (Bld) [Volume fraction] 45.4 % Normal 42.0-54.0 [facility] Comment on above: Performed By: #### C BC #### [facility] [address] [place] [address] Dr. Radha Shelton Hemoglobin (Bld) [Mass/Vol] 14.4 g/dL Normal 14.0-18.0 [facility] Comment on above: Performed By: #### C BC #### [facility] [address] [place] [address] Dr. Radha Shelton IG # 0.02 10e3/ul Normal 0.00-0.03 [facility] Comment on above: Performed By: #### C BC #### [facility] [address] [place] [address] Dr. Radha Shelton IG % 0.3 % Normal 0.0-0.5 [facility] Comment on above: Performed By: #### C BC #### [facility] [address] [place] [address] Dr. Radha Shelton LYMPH # 1.2 103/ul Normal 1.2-3.8 [facility] Comment on above: Performed By: #### C BC #### [facility] [address] [place] [address] Dr. Radha Shelton Lymphocytes/100 WBC (Bld) 20.0 % Critically low 20.5-60.0 [facility] Comment on above: Performed By: #### C BC #### [facility] [address] [place] [address] Dr. Radha Shelton MANUAL DIFF REQ NO Normal [facility] Comment on above: Performed By: #### C BC #### [facility] [address] [place] [address] Dr. Radha Shelton MCH (RBC) [Entitic mass] 28.6 pg Normal 25.9-34.0 [facility] Comment on above: Performed By: #### C BC #### [facility] [address] [place] [address] Dr. Radha Shelton MCHC (RBC) [Mass/Vol] 31.7 g/dL Normal 29.9-35.2 [facility] Comment on above: Performed By: #### C BC #### [facility] [address] [place] [address] Dr. Radha Shelton MCV (RBC) [Entitic vol] 90.3 fL Normal 80.0-94.0 [facility] Comment on above: Performed By: #### C BC #### [facility] [address] [place] [address] Dr. Radha Shelton MONO # 0.7 103/ul Normal 0.3-0.8 [facility] Comment on above: Performed By: #### C BC #### [facility] [address] [place] [address] Dr. Radha Shelton Monocytes/100 WBC (Bld) 10.8 % Normal 1.7-12.0 [facility] Comment on above: Performed By: #### C BC #### [facility] [address] [place] [address] Dr. Radha Shelton NEUT # 3.8 103/ul Normal 1.4-6.5 [facility] Comment on above: Performed By: #### C BC #### [facility] [address] [place] [address] Dr. Radha Shelton Neutrophils/100 WBC (Bld) 62.8 % Normal 43.0-75.0 [facility] Comment on above: Performed By: #### C BC #### [facility] [address] [address] [address] Radha Shelton Platelet mean volume (Bld) [Entitic vol] 9.2 fL Critically low 9.5-13.5 [facility] Comment on above: Performed By: #### C BC #### [facility] [address] [address] [address] Radha Shelton PLT 286 103/ul Normal 150-450 [facility] Comment on above: Performed By: #### C BC #### [facility] [address] [address] [address] Radha Shelton RBC 5.03 106/ul Normal 4.70-6.10 [facility] Comment on above: Performed By: #### C BC #### [facility] [address] [place] [address] Dr. Radha Shelton WBC 6.1 103/ul Normal 4.0-11.0 [facility] Comment on above: Performed By: #### C BC #### [facility] [address] [address] [address] Radha Shelton GLYCOHEMOGLOBIN A1Con 2020 ADA RECOMMENDATION ADA THERAPEUTIC TARGET 6.0 - 7.0 ACTION SUGGESTED > 7.0 Normal [facility] Comment on above: Performed By: #### A 1C #### [facility] [address] [place] [address] Dr. Radha Shelton Glucose [Mass/Vol] 117 mg/dL Normal [facility] Comment on above: Performed By: #### A 1C #### [facility] [address] [place] [address] Dr. Radha Shelton HbA1c (Bld) [Mass fraction] 5.7 % Normal <=6.0 [facility] Comment on above: Performed By: #### A 1C #### [facility] [address] [place] [address] Dr. Radha Shelton LIPID PROFILEon 05-01-2021 CHOL-HDL RATIO NORM SEE BELOW Normal [facility] Comment on above: Result Comment: 3.3 - 4.4 LOW RISK 4.4 - 7.1 AVERAGE RISK 7.1 - 11.0 MODERATE RISK >11.0 HIGH RISK Performed By: #### C MP, LIPID #### [facility] [address] [address] [address] Radha Shelton Cholesterol [Mass/Vol] 160 mg/dL Normal <=200 [facility] Comment on above: Performed By: #### C MP, LIPID #### [facility] [address] [address] [address] Radha Shelton Cholesterol in HDL [Mass/Vol] 53 mg/dL Normal [facility] Comment on above: Performed By: #### C MP, LIPID #### [facility] [address] [address] [address] Radha Shelton Cholesterol in LDL [Mass/Vol] 93.2 mg/dL Normal [facility] Comment on above: Performed By: #### C MP, LIPID #### [facility] [address] [address] [address] Radha Shelton Cholesterol.total/Cho lesterol in HDL [Mass ratio] 3.0 {ratio} Normal [facility] Comment on above: Performed By: #### C MP, LIPID #### [facility] [address] [address] [address] Radha Shelton HDL NORMAL > or = 60 mg/dl - LOW CARDIOVASCULAR RISK <40 mg/dl - HIGH CARDIOVASCULAR RISK Normal [facility] Comment on above: Performed By: #### C MP, LIPID #### [facility] [address] [address] [address] Radha Shelton LDL CALC NORMAL SEE BELOW Normal [facility] Comment on above: Result Comment: <100 mg/dl OPTIMAL 100 - 129 mg/dl NEAR OR ABOVE OPTIMAL 130 - 159 mg/dl BORDERLINE HIGH 160 - 189 mg/dl HIGH >190 mg/dl VERY HIGH Performed By: #### C MP, LIPID #### [facility] [address] [address] [address] Radha Shelton Triglyceride [Mass/Vol] 69 mg/dL Normal <=150 [facility] Comment on above: Performed By: #### C MP, LIPID #### [facility] [address] [address] [address] Radha Shelton VLDL CALC 13.8 mg/dL Normal [facility] Comment on above: Performed By: #### C MP, LIPID #### [facility] [address] [place] [address] Dr. Radha Shelton PROF 14(COMP METB)on 021 Albumin [Mass/Vol] 3.9 g/dL Normal 3.5-5.0 [facility] Comment on above: Performed By: #### C MP, LIPID #### [facility] [address] [place] [address] Dr. Radha Shelton Albumin/Globulin [Mass ratio] 1.1 {ratio} Normal [facility] Comment on above: Performed By: #### C MP, LIPID #### [facility] [address] [place] [address] Dr. Radha Shelton ALP [Catalytic activity/Vol] 95 U/L Normal 38-126 [facility] Comment on above: Performed By: #### C MP, LIPID #### [facility] [address] [place] [address] Dr. Radha Shelton ALT [Catalytic activity/Vol] 29 U/L Normal 21-72 [facility] Comment on above: Performed By: #### C MP, LIPID #### [facility] [address] [place] [address] Dr. Radha Shelton Anion gap [Moles/Vol] 8.8 mmol/L Normal [facility] Comment on above: Performed By: #### C MP, LIPID #### [facility] [address] [place] [address] Dr. Radha Shelton AST [Catalytic activity/Vol] 22 U/L Normal 17-59 [facility] Comment on above: Performed By: #### C MP, LIPID #### [facility] [address] [place] [address] Dr. Radha Shelton Bilirubin [Mass/Vol] 0.4 mg/dL Normal 0.2-1.3 [facility] Comment on above: Performed By: #### C MP, LIPID #### [facility] [address] [place] [address] Dr. Radha Shelton Calcium [Mass/Vol] 9.1 mg/dL Normal 8.4-10.2 [facility] Comment on above: Performed By: #### C MP, LIPID #### [facility] [address] [place] [address] Dr. Radha Shelton Chloride [Moles/Vol] 104 mmol/L Normal 98-107 [facility] Comment on above: Performed By: #### C MP, LIPID #### [facility] [address] [place] [address] Dr. Radha Shelton CO2 [Moles/Vol] 30.7 mmol/L Critically high 22.0-30.0 [facility] Comment on above: Performed By: #### C MP, LIPID #### [facility] [address] [place] [address] Dr. Radha Shelton Creatinine [Mass/Vol] 0.99 mg/dL Normal 0.66-1.25 [facility] Comment on above: Performed By: #### C MP, LIPID #### [facility] [address] [place] [address] Dr. Radha Shelton EGFR-AF NIGERIEN >60 Normal >=60 [facility] Comment on above: Performed By: #### C MP, LIPID #### [facility] [address] [place] [address] Dr. Radha Shelton EGFR-NON AF NIGERIEN >60 Normal >=60 [facility] Comment on above: Performed By: #### C MP, LIPID #### [facility] [address] [place] [address] Dr. Radha Shelton Globulin (S) [Mass/Vol] 3.4 g/dL Normal [facility] Comment on above: Performed By: #### C MP, LIPID #### [facility] [address] [place] [address] Dr. Radha Shelton Glucose [Mass/Vol] 85 mg/dL Normal 74-106 [facility] Comment on above: Performed By: #### C MP, LIPID #### [facility] [address] [place] [address] Dr. Radha Shelton Potassium [Moles/Vol] 4.5 mmol/L Normal 3.4-5.0 [facility] Comment on above: Performed By: #### C MP, LIPID #### [facility] [address] [place] [address] Dr. Radha Shelton Protein [Mass/Vol] 7.3 g/dL Normal 6.1-8.2 [facility] Comment on above: Performed By: #### C MP, LIPID #### [facility] [address] [address] [address] Radha Shelton Sodium [Moles/Vol] 139 mmol/L Normal 137-145 [facility] Comment on above: Performed By: #### C MP, LIPID #### [facility] [address] [place] [address] Dr. Radha Shelton Urea nitrogen [Mass/Vol] 16.0 mg/dL Normal 9.0-20.0 [facility] Comment on above: Performed By: #### C MP, LIPID #### [facility] [address] [place] [address] Dr. Radha Shelton Urea nitrogen/Creatinine [Mass ratio] 16.2 mg/mg Normal [facility] Comment on above: Performed By: #### C MP, LIPID #### [facility] [address] [place] [address] Dr. Radha Maciel 04-18-2021 [facility] Office Visit (AGHWW1) DOMINIC YU ([id number]) 1965 M Date Time Provider Department 04/18/21 1:15 PM KWAME CEDILLO AGHWW1 During your visit today, we recorded the following information about you: Respiration Weight Height 16/minute 113.4 kg 1.88 m Nurys Maurice MA 04/18/2021 1:33 PM Signed REVIEW OF SYSTEMS: GENERAL: Well developed, well nourished. No acute distress PAIN: Pain left ankle CARDIOVASCULAR: HTN MSK: Positive for joint swelling SKIN: Negative for lesions, rash, itching, metal sensitivity NEURO: Negative for seizure, trauma, numbness/tingling of extremities. ENDOCRINE: Negative for diabetic associated symptoms HEMATOLOGY: Negative for excessive bleeding, clots, bleeding disorders. Kwame Cedillo MD 04/18/2021 1:33 PM Signed 04/18/2021 RE: Dominic Yu DATE OF : 1965 Vitals: Resp 16 Ht 6' 2 (1.88m) Wt 250 lb (113.4kg) BMI 32.08 kg/(m2). FOLLOW UP VISIT: Trimalleolar fracture left ankle HPI: He continues to have pain and swelling in his left ankle. This precludes normal ambulation REVIEW OF SYSTEMS: MUSCULOSKELETAL: Negative for joint pain or swelling, back pain or muscle pain PAST MEDICAL HISTORY Diagnosis Date - Hypertension - Psychiatric disorder PAST SURGICAL HISTORY Procedure Laterality Date - JOINT REPLACEMENT HX hip - PAST SURGICAL HISTORY OF Left 12/24/2020 ankle - PAST SURGICAL HISTORY OF Right 2000 right foot Social History Tobacco Use - Smoking status: Never Smoker - Smokeless tobacco: Current User Types: Chew - Tobacco comment: FOR 27 YEARS, 1 CAN EVERY 2 DAYS Vaping Use - Vaping Use: Never used Substance Use Topics - Alcohol use: Yes Alcohol/week: 0.0 standard drinks Types: 1 Cans of Beer (12oz) per week Comment: social - Drug use: Not on file ALLERGIES Allergen Reactions - Hay Fever [Seasonal* Itching Current Medications: Current Outpatient Medications Medication Sig Dispense Refill - oxyCODONE-acetaminop hen (PERCOCET) 5-325 mg tablet Take 1 tablet by mouth every 6 hours as needed. (Patient not taking: Reported on 02/27/2021) 28 tablet 0 - omeprazole (PRILOSEC) 40 mg capsule Take 40 mg by mouth once daily. - losartan (COZAAR) 25 mg tablet Take 25 mg by mouth once daily. - FLUoxetine HCl 20 mg tablet Take 20 mg by mouth once daily. - sildenafil (VIAGRA) 100 mg tablet Take 100 mg by mouth as needed. - lamoTRIgine (LAMICTAL) 100 mg tablet Take 150 mg by mouth once daily. - metoprolol succinate ER (TOPROL XL) 25 mg 24 hr tablet Take 25 mg by mouth once daily. - doxazosin (CARDURA) 1 mg tablet Take 1 mg by mouth daily at bedtime. - Amoxicillin 500 mg tablet Take 6 capsules one hour before procedure and 2 capsules six hours after procedure 24 tablet 0 - Aspirin 81 mg tab Take 1 tablet by mouth once daily. 30 tablet 0 - therapeutic multivitamin tablet Take 1 tablet by mouth once daily. 30 tablet 0 - antiox#54-nr9-xpu-ep a-lut-zeax (I-CAPS) 280-10-2 mg cap Take 2 capsules by mouth twice daily. No current facility-administere d medications for this visit. PHYSICAL EXAMINATION: Good range of motion left ankle. No instability noted.Moderate swelling noted. RADIOGRAPHIC EXAMINATION: See note IMPRESSION: Trimalleolar fracture left ankle PLAN: Continue with progression of exercises and weight bearing ambulation as tolerated. I gave him a prescription for PT to assist him with this.Return in 1 month re xray Kwame Cedillo MD Referring Provider: KWAME CEDILLO [[id number]] Allergies As of Date: 04/18/2021 Noted Allergy Reaction HAY FEVER (SEASONAL ALLERGIES) 05/31/2013 9 - Itching Date Reviewed: 04/18/2021 Reviewed by: Kwame Cedillo MD - Fully Assessed Reason for Visit: Follow Up [171] Primary Visit Diagnosis:Closed trimalleolar fracture of left ankle with routine healing, subsequent encounter [B16.565M] Order(s):XR ANKLE 2V AP/LAT LT [[id number]] Order #: [id number] CONSULT TO PHYSICAL THERAPY (AG) [[id number]] Order #: [id number]: 1 Prescriptions as of 04/18/2021 - oxyCODONE-acetaminop hen (PERCOCET) 5-325 mg tablet Take 1 tablet by mouth every 6 hours as needed. - omeprazole (PRILOSEC) 40 mg capsule Take 40 mg by mouth once daily. - losartan (COZAAR) 25 mg tablet Take 25 mg by mouth once daily. - FLUoxetine HCl 20 mg tablet Take 20 mg by mouth once daily. - sildenafil (VIAGRA) 100 mg tablet Take 100 mg by mouth as needed. - lamoTRIgine (LAMICTAL) 100 mg tablet Take 150 mg by mouth once daily. - metoprolol succinate ER (TOPROL XL) 25 mg 24 hr tablet Take 25 mg by mouth once daily. - doxazosin (CARDURA) 1 mg tablet Take 1 mg by mouth daily at bedtime. - Amoxicillin 500 mg tablet Take 6 capsules one hour before procedure and 2 capsules six hours after procedure - Aspirin 81 mg tab Take 1 tablet by mouth once daily. - therapeu (more content not included)... Normal [facility] CNOVon 03-20-2021 CN Office Visit (AGHWG1) DOMINIC YU ([id number]) 1965 M Date Time Provider Department 03/20/21 1:15 PM KWAME CEDILLO AGHWG1 During your visit today, we recorded the following information about you: Respiration Weight Height 18/minute 117.9 kg 1.88 m Kwame Cedillo MD 03/20/2021 1:20 PM Signed 03/20/2021 RE: Dominic Yu DATE OF : 1965 Vitals: Resp 18 Ht 6' 2 (1.88m) Wt 260 lb (117.9kg) BMI 33.37 kg/(m2). FOLLOW UP VISIT: Trimalleolar fracture left ankle HPI: He is continuing to have some discomfort in his left ankle is not back to full ambulation yet. Is using a cane. He has not noted any giving way. REVIEW OF SYSTEMS: MUSCULOSKELETAL: Negative for joint pain or swelling, back pain or muscle pain PAST MEDICAL HISTORY Diagnosis Date - Hypertension - Psychiatric disorder PAST SURGICAL HISTORY Procedure Laterality Date - JOINT REPLACEMENT HX hip - PAST SURGICAL HISTORY OF Left 12/24/2020 ankle - PAST SURGICAL HISTORY OF Right 2000 right foot Social History Tobacco Use - Smoking status: Never Smoker - Smokeless tobacco: Current User Types: Chew - Tobacco comment: FOR 27 YEARS, 1 CAN EVERY 2 DAYS Vaping Use - Vaping Use: Never used Substance Use Topics - Alcohol use: Yes Alcohol/week: 0.0 standard drinks Types: 1 Cans of Beer (12oz) per week Comment: social - Drug use: Not on file ALLERGIES Allergen Reactions - Hay Fever [Seasonal* Itching Current Medications: Current Outpatient Medications Medication Sig Dispense Refill - omeprazole (PRILOSEC) 40 mg capsule Take 40 mg by mouth once daily. - losartan (COZAAR) 25 mg tablet Take 25 mg by mouth once daily. - sildenafil (VIAGRA) 100 mg tablet Take 100 mg by mouth as needed. - Aspirin 81 mg tab Take 1 tablet by mouth once daily. 30 tablet 0 - therapeutic multivitamin tablet Take 1 tablet by mouth once daily. 30 tablet 0 - antiox#74-ke0-flq-ep a-lut-zeax (I-CAPS) 280-10-2 mg cap Take 2 capsules by mouth twice daily. - oxyCODONE-acetaminop hen (PERCOCET) 5-325 mg tablet Take 1 tablet by mouth every 6 hours as needed. (Patient not taking: Reported on 02/27/2021) 28 tablet 0 - FLUoxetine HCl 20 mg tablet Take 20 mg by mouth once daily. - lamoTRIgine (LAMICTAL) 100 mg tablet Take 150 mg by mouth once daily. - metoprolol succinate ER (TOPROL XL) 25 mg 24 hr tablet Take 25 mg by mouth once daily. - doxazosin (CARDURA) 1 mg tablet Take 1 mg by mouth daily at bedtime. - Amoxicillin 500 mg tablet Take 6 capsules one hour before procedure and 2 capsules six hours after procedure 24 tablet 0 No current facility-administere d medications for this visit. PHYSICAL EXAMINATION: There is good range of motion of the left ankle lacking about 10 degrees of full dorsiflexion. He is able to weight-bear without too much pain. RADIOGRAPHIC EXAMINATION: See note IMPRESSION: Trimalleolar fracture left ankle PLAN: He should continue working on progression of ambulation as tolerated. Observe to get him back to independent ambulation. He does not feel he is ready to get back to full work. I am going to extend his work release through the end of May. Return in 3 weeks for recheck. Gary-ray. Kwame Cedillo MD Referring Provider: SELF [200] Allergies As of Date: 03/20/2021 Noted Allergy Reaction HAY FEVER (SEASONAL ALLERGIES) 05/31/2013 9 - Itching Date Reviewed: 03/20/2021 Reviewed by: Kwame Cedillo MD - Fully Assessed Reason for Visit: Fracture [4131] Post Op [174] Primary Visit Diagnosis:Closed trimalleolar fracture of left ankle with routine healing, subsequent encounter [D82.329X] Order(s):XR ANKLE 2V AP/LAT LT [[id number]] Order #: [id number] Prescriptions as of 03/20/2021 - oxyCODONE-acetaminop hen (PERCOCET) 5-325 mg tablet Take 1 tablet by mouth every 6 hours as needed. - omeprazole (PRILOSEC) 40 mg capsule Take 40 mg by mouth once daily. - losartan (COZAAR) 25 mg tablet Take 25 mg by mouth once daily. - FLUoxetine HCl 20 mg tablet Take 20 mg by mouth once daily. - sildenafil (VIAGRA) 100 mg tablet Take 100 mg by mouth as needed. - lamoTRIgine (LAMICTAL) 100 mg tablet Take 150 mg by mouth once daily. - metoprolol succinate ER (TOPROL XL) 25 mg 24 hr tablet Take 25 mg by mouth once daily. - doxazosin (CARDURA) 1 mg tablet Take 1 mg by mouth daily at bedtime. - Amoxicillin 500 mg tablet Take 6 capsules one hour before procedure and 2 capsules six hours after procedure - Aspirin 81 mg tab Take 1 tablet by mouth once daily. - therapeutic multivitamin tablet Take 1 tablet by mouth once daily. - antiox#09-kx1-sbd-ep a-lut-zeax (I-CAPS) 280-10-2 mg cap Take 2 capsules by mouth twice daily. Problem List As Of Date 03/20/2021 Noted Resolved Osteoarthritis of left hip [M16.12] 05/31/2013 12/12/2014 Osteoarthritis of right hip [M16.11] 1 (more content not included)... Normal [facility] CNOVon 02-27-2021 CNOV Office Visit (AGHWG1) DOMINIC YU ([id number]) 1965 M Date Time Provider Department 02/27/21 1:30 PM KWAME CEDILLO AGHWG1 During your visit today, we recorded the following information about you: Respiration Weight Height 20/minute 117.9 kg 1.88 m Kwame Cedillo MD 02/27/2021 1:44 PM Signed 02/27/2021 RE: Dominic Yu DATE OF : 1965 Vitals: Resp 20 Ht 6' 2 (1.88m) Wt 260 lb (117.9kg) BMI 33.37 kg/(m2). FOLLOW UP VISIT: Trimalleolar fracture left ankle HPI: He has been able to resume some weightbearing ambulation but the swelling has precluded getting back into normal shoewear. He is not having significant discomfort in his left ankle. REVIEW OF SYSTEMS: MUSCULOSKELETAL: Negative for joint pain or swelling, back pain or muscle pain PAST MEDICAL HISTORY Diagnosis Date - Hypertension - Psychiatric disorder PAST SURGICAL HISTORY Procedure Laterality Date - JOINT REPLACEMENT HX hip - PAST SURGICAL HISTORY OF Left 12/24/2020 ankle - PAST SURGICAL HISTORY OF Right 2000 right foot Social History Tobacco Use - Smoking status: Never Smoker - Smokeless tobacco: Current User Types: Chew - Tobacco comment: FOR 27 YEARS, 1 CAN EVERY 2 DAYS Vaping Use - Vaping Use: Never used Substance Use Topics - Alcohol use: Yes Alcohol/week: 0.0 standard drinks Types: 1 Cans of Beer (12oz) per week Comment: social - Drug use: Not on file ALLERGIES Allergen Reactions - Hay Fever [Seasonal* Itching Current Medications: Current Outpatient Medications Medication Sig Dispense Refill - omeprazole (PRILOSEC) 40 mg capsule Take 40 mg by mouth once daily. - losartan (COZAAR) 25 mg tablet Take 25 mg by mouth once daily. - FLUoxetine HCl 20 mg tablet Take 20 mg by mouth once daily. - sildenafil (VIAGRA) 100 mg tablet Take 100 mg by mouth as needed. - lamoTRIgine (LAMICTAL) 100 mg tablet Take 150 mg by mouth once daily. - metoprolol succinate ER (TOPROL XL) 25 mg 24 hr tablet Take 25 mg by mouth once daily. - doxazosin (CARDURA) 1 mg tablet Take 1 mg by mouth daily at bedtime. - Amoxicillin 500 mg tablet Take 6 capsules one hour before procedure and 2 capsules six hours after procedure 24 tablet 0 - Aspirin 81 mg tab Take 1 tablet by mouth once daily. 30 tablet 0 - therapeutic multivitamin tablet Take 1 tablet by mouth once daily. 30 tablet 0 - antiox#44-hf9-hrx-ep a-lut-zeax (I-CAPS) 280-10-2 mg cap Take 2 capsules by mouth twice daily. - oxyCODONE-acetaminop hen (PERCOCET) 5-325 mg tablet Take 1 tablet by mouth every 6 hours as needed. (Patient not taking: Reported on 02/27/2021) 28 tablet 0 No current facility-administere d medications for this visit. PHYSICAL EXAMINATION: He has good range of motion left ankle. There is no instability on anterior posterior varus valgus stress. There is a moderate amount of swelling. RADIOGRAPHIC EXAMINATION: See note IMPRESSION: Trimalleolar fracture left ankle PLAN: He should continue with progression of weightbearing ambulation as tolerated. May try to get back into normal shoewear if the swelling goes down. Return in 2 weeks for recheck with x-ray. Kwame Cedillo MD Referring Provider: SELF [200] Allergies As of Date: 02/27/2021 Noted Allergy Reaction HAY FEVER (SEASONAL ALLERGIES) 05/31/2013 9 - Itching Date Reviewed: 02/27/2021 Reviewed by: Kwame Cedillo MD - Fully Assessed Reason for Visit: Follow Up [171] Pain [78] Post Op [174] Primary Visit Diagnosis:Closed trimalleolar fracture of left ankle with routine healing, subsequent encounter [Z58.735Y] Order(s):XR ANKLE 2V AP/LAT LT [[id number]] Order #: [id number] Prescriptions as of 02/27/2021 - oxyCODONE-acetaminop hen (PERCOCET) 5-325 mg tablet Take 1 tablet by mouth every 6 hours as needed. - omeprazole (PRILOSEC) 40 mg capsule Take 40 mg by mouth once daily. - losartan (COZAAR) 25 mg tablet Take 25 mg by mouth once daily. - FLUoxetine HCl 20 mg tablet Take 20 mg by mouth once daily. - sildenafil (VIAGRA) 100 mg tablet Take 100 mg by mouth as needed. - lamoTRIgine (LAMICTAL) 100 mg tablet Take 150 mg by mouth once daily. - metoprolol succinate ER (TOPROL XL) 25 mg 24 hr tablet Take 25 mg by mouth once daily. - doxazosin (CARDURA) 1 mg tablet Take 1 mg by mouth daily at bedtime. - Amoxicillin 500 mg tablet Take 6 capsules one hour before procedure and 2 capsules six hours after procedure - Aspirin 81 mg tab Take 1 tablet by mouth once daily. - therapeutic multivitamin tablet Take 1 tablet by mouth once daily. - antiox#51-eh2-azm-ep a-lut-zeax (I-CAPS) 280-10-2 mg cap Take 2 capsules by mouth twice daily. Problem List As Of Date 02/27/2021 Noted Resolved Osteoarthritis of left hip [M16.12] 05/31/2013 12/12/2014 Osteoarthritis of right hip [M16.11] 05/31/2013 S/P total hip arthroplasty [Z96.64 (more content not included)... Normal [facility] CNOVon 02-06-2021 [facility] Office Visit (AGHWG1) DOMINIC YU ([id number]) 1965 M Date Time Provider Department 02/06/21 3:15 PM KWAME CEDILLO AGHWG1 During your visit today, we recorded the following information about you: Respiration Weight Height 18/minute 117.9 kg 1.88 m Kwame Cedillo MD 02/06/2021 2:46 PM Signed 02/06/2021 RE: Dominic Yu DATE OF : 1965 Vitals: Resp 18 Ht 6' 2 (1.88m) Wt 260 lb (117.9kg) BMI 33.37 kg/(m2). FOLLOW UP VISIT: Trimalleolar fracture left ankle HPI: He is approaching 6 weeks post fracture left ankle. He has been using the boot for protection and is nonweightbearing. He is not having any pain. REVIEW OF SYSTEMS: MUSCULOSKELETAL: Negative for joint pain or swelling, back pain or muscle pain PAST MEDICAL HISTORY Diagnosis Date - Hypertension - Psychiatric disorder PAST SURGICAL HISTORY Procedure Laterality Date - JOINT REPLACEMENT HX hip Social History Tobacco Use - Smoking status: Never Smoker - Smokeless tobacco: Current User Types: Chew - Tobacco comment: FOR 27 YEARS, 1 CAN EVERY 2 DAYS Vaping Use - Vaping Use: Never used Substance Use Topics - Alcohol use: Yes Alcohol/week: 0.0 standard drinks Types: 1 Cans of Beer (12oz) per week Comment: social - Drug use: Not on file ALLERGIES Allergen Reactions - Hay Fever [Seasonal* Itching Current Medications: Current Outpatient Medications Medication Sig Dispense Refill - oxyCODONE-acetaminop hen (PERCOCET) 5-325 mg tablet Take 1 tablet by mouth every 6 hours as needed. 28 tablet 0 - omeprazole (PRILOSEC) 40 mg capsule Take 40 mg by mouth once daily. - losartan (COZAAR) 25 mg tablet Take 25 mg by mouth once daily. - FLUoxetine HCl 20 mg tablet Take 20 mg by mouth once daily. - sildenafil (VIAGRA) 100 mg tablet Take 100 mg by mouth as needed. - lamoTRIgine (LAMICTAL) 100 mg tablet Take 150 mg by mouth once daily. - metoprolol succinate ER (TOPROL XL) 25 mg 24 hr tablet Take 25 mg by mouth once daily. - doxazosin (CARDURA) 1 mg tablet Take 1 mg by mouth daily at bedtime. - Amoxicillin 500 mg tablet Take 6 capsules one hour before procedure and 2 capsules six hours after procedure 24 tablet 0 - Aspirin 81 mg tab Take 1 tablet by mouth once daily. 30 tablet 0 - therapeutic multivitamin tablet Take 1 tablet by mouth once daily. 30 tablet 0 - antiox#60-to4-gom-ep a-lut-zeax (I-CAPS) 280-10-2 mg cap Take 2 capsules by mouth twice daily. No current facility-administere d medications for this visit. PHYSICAL EXAMINATION: There is still some swelling and ecchymosis surrounding the left ankle. He has good range of motion. There is no instability on anterior posterior varus valgus stress. RADIOGRAPHIC EXAMINATION: See note IMPRESSION: Trimalleolar fracture left ankle PLAN: He should continue now with progression of weightbearing ambulation. He may initially use the boot but may make the transition into normal shoewear as time goes on. I would like to see him back again in 3 weeks for recheck with x-ray. Kwame Cedillo MD Referring Provider: SELF [200] Allergies As of Date: 02/06/2021 Noted Allergy Reaction HAY FEVER (SEASONAL ALLERGIES) 05/31/2013 9 - Itching Date Reviewed: 02/06/2021 Reviewed by: Kwame Cedillo MD - Fully Assessed Reason for Visit: Fracture [4131] Post Op [174] Follow Up [171] Primary Visit Diagnosis:Closed trimalleolar fracture of left ankle with routine healing, subsequent encounter [C50.389O] Order(s):XR ANKLE 2V AP/LAT LT [[id number]] Order #: [id number] Prescriptions as of 02/06/2021 - oxyCODONE-acetaminop hen (PERCOCET) 5-325 mg tablet Take 1 tablet by mouth every 6 hours as needed. - omeprazole (PRILOSEC) 40 mg capsule Take 40 mg by mouth once daily. - losartan (COZAAR) 25 mg tablet Take 25 mg by mouth once daily. - FLUoxetine HCl 20 mg tablet Take 20 mg by mouth once daily. - sildenafil (VIAGRA) 100 mg tablet Take 100 mg by mouth as needed. - lamoTRIgine (LAMICTAL) 100 mg tablet Take 150 mg by mouth once daily. - metoprolol succinate ER (TOPROL XL) 25 mg 24 hr tablet Take 25 mg by mouth once daily. - doxazosin (CARDURA) 1 mg tablet Take 1 mg by mouth daily at bedtime. - Amoxicillin 500 mg tablet Take 6 capsules one hour before procedure and 2 capsules six hours after procedure - Aspirin 81 mg tab Take 1 tablet by mouth once daily. - therapeutic multivitamin tablet Take 1 tablet by mouth once daily. - antiox#54-xw4-mpz-ep a-lut-zeax (I-CAPS) 280-10-2 mg cap Take 2 capsules by mouth twice daily. Problem List As Of Date 02/06/2021 Noted Resolved Osteoarthritis of left hip [M16.12] 05/31/2013 12/12/2014 Osteoarthritis of right hip [M16.11] 05/31/2013 S/P total hip arthroplasty [Z96.649] 08/16/2013 Trimalleolar fracture of ankle, closed, left, i*12/24/2020 Nicotine use disorder, F17.2 [F (more content not included)... Normal [facility] CNOVon 01-23-2021 CNOV Office Visit (AGHWG1) DOMINIC YU ([id number]) 1965 M Date Time Provider Department 01/23/21 1:15 PM KWAME CEDILLO AGHWG1 During your visit today, we recorded the following information about you: Respiration Weight Height 18/minute 117.9 kg 1.88 m Kwame Cedillo MD 01/23/2021 1:29 PM Signed 01/23/2021 RE: Dominic Yu DATE OF : 1965 Vitals: Resp 18 Ht 6' 2 (1.88m) Wt 260 lb (117.9kg) BMI 33.37 kg/(m2). FOLLOW UP VISIT: Fracture left tibial plafond HPI: He is now about 1 month post open reduction internal fixation of the left ankle. He still has a moderate amount of swelling. He also has limitation of motion of his left ankle. Is been using the boot and is nonweightbearing. REVIEW OF SYSTEMS: MUSCULOSKELETAL: Negative for joint pain or swelling, back pain or muscle pain PAST MEDICAL HISTORY Diagnosis Date - Hypertension - Psychiatric disorder PAST SURGICAL HISTORY Procedure Laterality Date - JOINT REPLACEMENT HX hip Social History Tobacco Use - Smoking status: Never Smoker - Smokeless tobacco: Current User Types: Chew - Tobacco comment: FOR 27 YEARS, 1 CAN EVERY 2 DAYS Vaping Use - Vaping Use: Never used Substance Use Topics - Alcohol use: Yes Alcohol/week: 0.0 standard drinks Types: 1 Cans of Beer (12oz) per week Comment: social - Drug use: Not on file ALLERGIES Allergen Reactions - Hay Fever [Seasonal* Itching Current Medications: Current Outpatient Medications Medication Sig Dispense Refill - oxyCODONE-acetaminop hen (PERCOCET) 5-325 mg tablet Take 1 tablet by mouth every 6 hours as needed. 28 tablet 0 - omeprazole (PRILOSEC) 40 mg capsule Take 40 mg by mouth once daily. - losartan (COZAAR) 25 mg tablet Take 25 mg by mouth once daily. - FLUoxetine HCl 20 mg tablet Take 20 mg by mouth once daily. - sildenafil (VIAGRA) 100 mg tablet Take 100 mg by mouth as needed. - lamoTRIgine (LAMICTAL) 100 mg tablet Take 150 mg by mouth once daily. - metoprolol succinate ER (TOPROL XL) 25 mg 24 hr tablet Take 25 mg by mouth once daily. - doxazosin (CARDURA) 1 mg tablet Take 1 mg by mouth daily at bedtime. - Amoxicillin 500 mg tablet Take 6 capsules one hour before procedure and 2 capsules six hours after procedure 24 tablet 0 - Aspirin 81 mg tab Take 1 tablet by mouth once daily. 30 tablet 0 - therapeutic multivitamin tablet Take 1 tablet by mouth once daily. 30 tablet 0 - antiox#35-hc6-zar-ep a-lut-zeax (I-CAPS) 280-10-2 mg cap Take 2 capsules by mouth twice daily. No current facility-administere d medications for this visit. PHYSICAL EXAMINATION: There is some limitation of motion of the left ankle primarily to dorsiflexion. No instability is noted on anterior posterior varus valgus stress. He has moderate amount of discoloration and swelling about the left ankle. RADIOGRAPHIC EXAMINATION: See note IMPRESSION: Fracture left tibial plafond PLAN: He should continue working on range of motion of the left ankle. He should continue using the boot for protection. He should be nonweightbearing. Return in 2 weeks for recheck with x-ray. Kwame Cedillo MD Referring Provider: KWAME CEDILLO [[id number]] Allergies As of Date: 01/23/2021 Noted Allergy Reaction HAY FEVER (SEASONAL ALLERGIES) 05/31/2013 9 - Itching Date Reviewed: 01/23/2021 Reviewed by: Kwame Cedillo MD - Fully Assessed Reason for Visit: Fracture [4131] Primary Visit Diagnosis:Closed trimalleolar fracture of left ankle with routine healing, subsequent encounter [Z56.125V] Order(s):XR ANKLE 2V AP/LAT LT [[id number]] Order #: [id number] Prescriptions as of 01/23/2021 - oxyCODONE-acetaminop hen (PERCOCET) 5-325 mg tablet Take 1 tablet by mouth every 6 hours as needed. - omeprazole (PRILOSEC) 40 mg capsule Take 40 mg by mouth once daily. - losartan (COZAAR) 25 mg tablet Take 25 mg by mouth once daily. - FLUoxetine HCl 20 mg tablet Take 20 mg by mouth once daily. - sildenafil (VIAGRA) 100 mg tablet Take 100 mg by mouth as needed. - lamoTRIgine (LAMICTAL) 100 mg tablet Take 150 mg by mouth once daily. - metoprolol succinate ER (TOPROL XL) 25 mg 24 hr tablet Take 25 mg by mouth once daily. - doxazosin (CARDURA) 1 mg tablet Take 1 mg by mouth daily at bedtime. - Amoxicillin 500 mg tablet Take 6 capsules one hour before procedure and 2 capsules six hours after procedure - Aspirin 81 mg tab Take 1 tablet by mouth once daily. - therapeutic multivitamin tablet Take 1 tablet by mouth once daily. - antiox#58-xa0-aga-ep a-lut-zeax (I-CAPS) 280-10-2 mg cap Take 2 capsules by mouth twice daily. Problem List As Of Date 01/23/2021 Noted Resolved Osteoarthritis of left hip [M16.12] 05/31/2013 12/12/2014 Osteoarthritis of right hip [M16.11] 05/31/2013 S/P total hip arthroplasty [Z96.649] 08/16/2013 Trimalleolar fracture of ankle, (more content not included)... Normal [facility] CNOVon 01-09-2021 CNOV Office Visit (AGHWG1) DOMINIC YU ([id number]) 1965 M Date Time Provider Department 01/09/21 1:00 PM KWAME CEDILLO AGHWG1 During your visit today, we recorded the following information about you: Respiration Weight Height 18/minute 117.9 kg 1.88 m Kwame Cedillo MD 01/09/2021 1:24 PM Signed 01/09/2021 RE: Dominic Yu DATE OF : 1965 Vitals: Resp 18 Ht 6' 2 (1.88m) Wt 260 lb (117.9kg) BMI 33.37 kg/(m2). FOLLOW UP VISIT: Triimalleolar fracture left ankle HPI: He is status post open reduction internal fixation of the left ankle. We remove the splint for today's evaluation. He is having moderate amount of pain. He also has swelling. REVIEW OF SYSTEMS: MUSCULOSKELETAL: Negative for joint pain or swelling, back pain or muscle pain PAST MEDICAL HISTORY Diagnosis Date - Hypertension - Psychiatric disorder PAST SURGICAL HISTORY Procedure Laterality Date - JOINT REPLACEMENT HX hip Social History Tobacco Use - Smoking status: Never Smoker - Smokeless tobacco: Current User Types: Chew - Tobacco comment: FOR 27 YEARS, 1 CAN EVERY 2 DAYS Vaping Use - Vaping Use: Never used Substance Use Topics - Alcohol use: Yes Alcohol/week: 0.0 standard drinks Types: 1 Cans of Beer (12oz) per week Comment: social - Drug use: Not on file ALLERGIES Allergen Reactions - Hay Fever [Seasonal* Itching Current Medications: Current Outpatient Medications Medication Sig Dispense Refill - omeprazole (PRILOSEC) 40 mg capsule Take 40 mg by mouth once daily. - losartan (COZAAR) 25 mg tablet Take 25 mg by mouth once daily. - FLUoxetine HCl 20 mg tablet Take 20 mg by mouth once daily. - sildenafil (VIAGRA) 100 mg tablet Take 100 mg by mouth as needed. - lamoTRIgine (LAMICTAL) 100 mg tablet Take 150 mg by mouth once daily. - metoprolol succinate ER (TOPROL XL) 25 mg 24 hr tablet Take 25 mg by mouth once daily. - doxazosin (CARDURA) 1 mg tablet Take 1 mg by mouth daily at bedtime. - Amoxicillin 500 mg tablet Take 6 capsules one hour before procedure and 2 capsules six hours after procedure 24 tablet 0 - Aspirin 81 mg tab Take 1 tablet by mouth once daily. 30 tablet 0 - therapeutic multivitamin tablet Take 1 tablet by mouth once daily. 30 tablet 0 - antiox#53-yr5-rnc-ep a-lut-zeax (I-CAPS) 280-10-2 mg cap Take 2 capsules by mouth twice daily. No current facility-administere d medications for this visit. PHYSICAL EXAMINATION: There is a moderate amount of swelling about the left ankle. Incision noted to be healing nicely. He does have a small fracture blister on the medial aspect of the left ankle. The alignment looks good. RADIOGRAPHIC EXAMINATION: See note IMPRESSION: Trimalleolar fracture left ankle PLAN: I had the tech remove justin today. We placed him into a tall walker boot. He should continue with nonweightbearing. He may remove the boot for range of motion and washing. Return in 2 weeks for recheck with x-ray. MD Kwame Melchor MD 01/09/2021 1:37 PM Signed Addended by: KWAME CEDILLO on: 01/09/2021 01:37 PM Modules accepted: Orders Referring Provider: KWAME CEDILLO [[id number]] Allergies As of Date: 01/09/2021 Noted Allergy Reaction HAY FEVER (SEASONAL ALLERGIES) 05/31/2013 9 - Itching Date Reviewed: 01/09/2021 Reviewed by: Kwame Cedillo MD - Fully Assessed Reason for Visit: Post Op [174] Fracture [4131] Primary Visit Diagnosis:Closed trimalleolar fracture of left ankle with routine healing, subsequent encounter [E89.035A] Order(s):XR ANKLE 2V AP/LAT LT [6854324] Order #: [id number] oxyCODONE-acetaminop hen (PERCOCET) 5-325 mg tabletTake 1 tablet by mouth every 6 hours as needed.Disp: 28 tabletRfl: 0 Prescriptions as of 01/09/2021 - oxyCODONE-acetaminop hen (PERCOCET) 5-325 mg tablet Take 1 tablet by mouth every 6 hours as needed. - omeprazole (PRILOSEC) 40 mg capsule Take 40 mg by mouth once daily. - losartan (COZAAR) 25 mg tablet Take 25 mg by mouth once daily. - FLUoxetine HCl 20 mg tablet Take 20 mg by mouth once daily. - sildenafil (VIAGRA) 100 mg tablet Take 100 mg by mouth as needed. - lamoTRIgine (LAMICTAL) 100 mg tablet Take 150 mg by mouth once daily. - metoprolol succinate ER (TOPROL XL) 25 mg 24 hr tablet Take 25 mg by mouth once daily. - doxazosin (CARDURA) 1 mg tablet Take 1 mg by mouth daily at bedtime. - Amoxicillin 500 mg tablet Take 6 capsules one hour before procedure and 2 capsules six hours after procedure - Aspirin 81 mg tab Take 1 tablet by mouth once daily. - therapeutic multivitamin tablet Take 1 tablet by mouth once daily. - antiox#[id number]-[id number]-ep a-lut-zeax (I-CAPS) 280-10-2 mg cap Take 2 capsules by mouth twice daily. Problem List As Of Date 01/09/2021 Noted Resolved Osteoarthritis of left hip [M16.12] 05/31/2013 12/12/2014 Osteoarthritis (more content not included)... 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 Cedillo Body Part(s) Identified: Ankle Diagnosis/Reason For Visit: Post OP Reason for the call/escalation: Unable to sched Post OP appt If reason for call/escalation is discharge from ED/ER or Hospital, which facility was the patient seen at: N/A Was an appointment scheduled (Y/N): No Person calling if other than patient: N/A Return call to if other than patient: N/A Best contact number: [phone] Erika Ale December 26, 2020 2:10 PM Reyna Rosen Belt [facility] 12/26/2020 3:19 PM Signed Spoke with Mr. Yu he is now scheduled at his request for 01-09-21 @ 1300 @ [place] with Dr. Cedillo. He thanked the office. 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 - omeprazole (PRILOSEC) 40 mg capsule Take 40 mg by mouth once daily. - losartan (COZAAR) 25 mg tablet Take 25 mg by mouth once daily. - FLUoxetine HCl 20 mg tablet Take 20 mg by mouth once daily. - sildenafil (VIAGRA) 100 mg tablet Take 100 mg by mouth as needed. - lamoTRIgine (LAMICTAL) 100 mg tablet Take 150 mg by mouth once daily. - metoprolol succinate ER (TOPROL XL) 25 mg 24 hr tablet Take 25 mg by mouth once daily. - doxazosin (CARDURA) 1 mg tablet Take 1 mg by mouth daily at bedtime. - Amoxicillin 500 mg tablet Take 6 capsules one hour before procedure and 2 capsules six hours after procedure - Aspirin 81 mg tab Take 1 tablet by mouth once daily. - therapeutic multivitamin tablet Take 1 tablet by mouth once daily. - antiox#61-tq1-qkx-ep a-lut-zeax (I-CAPS) 280-10-2 mg cap Take 2 capsules by mouth twice daily. 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 SEX: M PATIENT TYPE: I HOSP [facility] [place] [facility]: [facility] LOCATION: [facility] ATTENDING PHYSICIAN: Kwame Cedillo MD CSN NUMBER: [id number] DATE OF SURGERY/PROCEDURE: 12/24/2020 INCISION/PROCEDURE START TIME: 8:12 PM INCISION CLOSE/PROCEDURE END TIME: 9:17 PM PREOPERATIVE DIAGNOSIS: Trimalleolar fracture, left ankle. POSTOPERATIVE DIAGNOSIS: Trimalleolar fracture, left ankle. SURGEON: Kwame Cedillo MD BUCKLE INSPECTOR: Dr. Connor. SURGERY/PROCEDURE: Open reduction and internal fixation, left ankle with fixation of the posterior lip. ANESTHESIA: General. DESCRIPTION OF PROCEDURE: The patient was placed on the operating table in supine position. After adequate induction of general anesthesia, tourniquet was placed about the left thigh. A bolster was placed beneath the left buttock. He was prepped and draped in usual sterile orthopedic manner with the left leg draped free. After elevation of the limb, the tourniquet was inflated to 350 mmHg. A long linear incision made laterally extending through subcutaneous tissue down to the level of fracture. He was found to have significant comminution through the region of his fibular fracture. The individual fragments were isolated and reduced. Wounds were irrigated with normal saline. A single anteroposterior lag screw was placed into a large split proximally. At this point, the 8 hole plate was placed over the lateral aspect of the fibula. It was secured with a single screw proximally. This was followed by clamping of the fracture in a reduced position. 2 cancellous screws were placed into the lateral malleolus. This followed by placement of 2 additional proximal cortical screws. A 3rd distal screw was then placed across the fracture. Image was used to check the fixation, found to be quite good. He was found to have some instability of the posterior fragment. This was visualized. The fragment was noted to reduce reasonably well. Elected to fix this with a cannulated screw fixation from anterior to posterior. Using a wire marked on the anterolateral aspect of the tibia, the wire was advanced across the distal tibia approximately 1 cm proximal to the ankle joint. It was advanced just through the posterior cortex. This was measured in appropriate length. Self-drilling, self-tapping 4.0 screw was selected. Anterior cortex was drilled. This followed by placement of the screw across the fracture. The pin was removed. A 2nd screw was placed about 1 cm medial to this through the distal fragment. At this point, image was used to check final reduction, fixation, and found to be quite good. The wounds were irrigated with normal saline. The fascia was closed with a running suture of 0 Vicryl. Subcutaneous tissue was closed with 2-0 Vicryl. The skin was closed with proximate suture clips. Single suture clip was placed through each of the anterior incisions. This point sterile dressing was applied. The tourniquet was deflated, good vascular flush was noted. The posterior splint was applied. The patient was awoken and returned to recovery room in satisfactory condition after tolerating the procedure quite well. Kwame Cedillo MD PGW:[id number] /[id number] Normal [facility] ALLIED HEALTHon 12-25-2020 ALLIED [facility] HNO ID: [id number] Author: RT Tabitha(R) Service: Radiology Author Type: Kettle Tender Type: [place] Filed: 12/24/2020 10:26 PM Note Text: Radiology Service Progress Note PATIENT NAME: Dominic Yu DATE OF SERVICE: December 24, 2020 TIME: 10:25 PM PATIENT IDENTITY VERIFICATION COMPLETED USING TWO (2) IDENTIFIERS: Name and Date of confirmed by identification band. FALL SCREENING: Has the patient had 2 falls in the last year or 1 fall with injury or currently using an Ambulatory Assistive Device (Walker, Cane, Wheelchair, Crutches, etc.)? Inpatient: Screened on floor PATIENT GENDER DATA: Male PATIENT RELEVANT IMPLANT DATA REVIEWED: Not Applicable RADIOLOGY DEPARTMENT: General X-ray: Exam(s) Completed: Lower Extremity X-Ray(s): Ankle, Left PERIPHERAL IV DATA: Not applicable SIGNED BY: Natalia Perales RT(R) December 24, 2020 10:25 PM [facility] HNO ID: [id number] Author: RT Tabitha(R) Service: Radiology Author Type: Kettle Tender Type: [employer] [facility] Filed: 12/24/2020 10:01 PM Note Text: Radiology Service Progress Note PATIENT NAME: Dominic Yu DATE OF SERVICE: December 24, 2020 TIME: 10:00 PM PATIENT IDENTITY VERIFICATION COMPLETED USING TWO (2) IDENTIFIERS: NAME AND OBTAINED BY OR NURSE. FALL SCREENING: Has the patient had 2 falls in the last year or 1 fall with injury or currently using an Ambulatory Assistive Device (Walker, Cane, Wheelchair, Crutches, etc.)? Inpatient: Screened on floor PATIENT GENDER DATA: Male PATIENT RELEVANT IMPLANT DATA REVIEWED: Not Applicable RADIOLOGY DEPARTMENT: LEFT ORIF ANKLE PERIPHERAL IV DATA: Not applicable SIGNED BY: RT Jim(R) December 24, 2020 10:00 PM [facility] ANES POSTPROC EVALon 021 ANES POSTPROC EVAL HNO ID: [id number] Author: Michael Marshall MD Service: Anesthesiology Author Type: Physician Type: Anesthesia Postprocedure Evaluation Filed: 12/25/2020 12:24 AM Note Text: POST ANESTHESIA EVALUATION NOTE : 1965 Procedure Summary Date: 12/24/20 Room / Location: DC OR / DC OR Anesthesia Start: 1939 Anesthesia Stop: 2137 Procedures: ORIF ANKLE TRIMALLEOLAR, WITH FIXATION POSTERIOR LIP (Left Ankle) ORIF SYNDESMOSIS LOWER EXTREMITY (Left Ankle) Diagnosis: Trimalleolar fracture of ankle, closed, left, initial encounter Surgeons: Kwame Cedillo MD Responsible Provider: Michael Marshall MD Anesthesia Type: general ASA Status: 2 - Emergent Anesthesia Type: general Last vitals Vitals Value Taken Time BP 127/77 12/24/20 2245 Temp 36.3 ?C (97.3 ?F) 12/24/20 2234 HR SpO2 72 12/24/20 2250 Resp 32 12/24/20 2249 SpO2 97 % 12/24/20 2250 Vitals shown include unvalidated device data. Post Anesthesia Patient Status Patient Evaluation: bedside. Pulmonary Status: breathing comfortably on supplemental oxygen Cardiovascular Status: stable. Intraoperative Events: no significant anesthesia events Recommendation: continue current plan of care. No complications documented. SIGNATURE: Michael Marshall MD PATIENT NAME: Dominic Yu DATE: December 25, 2020 TIME: 12:24 AM CSN: [id number] Normal [facility] CBC panel Auto (Bld)on 12-25 Erythrocyte distribution width (RBC) [Ratio] 13.0 % Normal 11.5-15.0 [facility] Comment on above: Order Comment: Speci men Type: BLOOD SPECIMEN Performed By: #### 2 4321-2 #### [facility] CLIA [id number] [address] [place] [address] Hematocrit (Bld) [Volume fraction] 39.8 % Normal 39.0-51.0 [facility] Comment on above: Order Comment: Speci men Type: BLOOD SPECIMEN Performed By: #### 2 4321-2 #### [facility] CLIA [id number] [address] [place] [address] Hemoglobin (Bld) [Mass/Vol] 13.1 g/dL Normal 13.0-17.0 [facility] Comment on above: Order Comment: Speci men Type: BLOOD SPECIMEN Performed By: #### 2 4321-2 #### [facility] CLIA [id number] [address] [place] [address] MCH (RBC) [Entitic mass] 29.4 pg Normal 26.0-34.0 [facility] Comment on above: Order Comment: Speci men Type: BLOOD SPECIMEN Performed By: #### 2 4321-2 #### [facility] CLIA [id number] [address] [place] [address] MCHC (RBC) [Mass/Vol] 32.9 g/dL Normal 30.5-36.0 [facility] Comment on above: Order Comment: Speci men Type: BLOOD SPECIMEN Performed By: #### 2 4321-2 #### [facility] CLIA [id number] [address] [place] [address] MCV (RBC) [Entitic vol] 89.4 fL Normal 80.0-100.0 [facility] Comment on above: Order Comment: Speci men Type: BLOOD SPECIMEN Performed By: #### 2 4321-2 #### [facility] CLIA [id number] [address] [place] [address] Nucleated RBC (Bld) [#/Vol] 10*3/uL Normal <0.01 [facility] Comment on above: Order Comment: Speci men Type: BLOOD SPECIMEN Performed By: #### 2 4321-2 #### [facility] CLIA [id number] [address] [place] [address] Platelet mean volume (Bld) [Entitic vol] 8.4 fL Low 9.0-12.7 [facility] Comment on above: Order Comment: Speci men Type: BLOOD SPECIMEN Performed By: #### 2 4321-2 #### [facility] CLIA [id number] [address] [place] [address] Platelets (Bld) [#/Vol] 265 10*3/uL Normal 150-400 [facility] Comment on above: Order Comment: Speci men Type: BLOOD SPECIMEN Performed By: #### 2 4321-2 #### [facility] CLIA [id number] [address] [place] [address] RBC (Bld) [#/Vol] 4.45 10*6/uL Normal 4.20-6.00 [facility] Comment on above: Order Comment: Speci men Type: BLOOD SPECIMEN Performed By: #### 2 4321-2 #### [facility] CLIA [id number] [address] [place] [address] WBC (Bld) [#/Vol] 9.61 10*3/uL Normal 3.70-11.00 [facility] Comment on above: Order Comment: Speci men Type: BLOOD SPECIMEN Performed By: #### 2 4321-2 #### [facility] CLIA [id number] [address] [place] [address] THERAPY NTon 12-25-2020 THERAPY NT HNO ID: [id number] Author: LAURA Hensley/Checo Service: ? Author Type: Occupational Therapist Type: Therapy (PT/OT/Speech/Resp) Filed: 12/25/2020 10:41 AM Note Text: Occupational Therapy Evaluation SERVICE DATE: 12/25/2020 SERVICE TIME: 30 to 0945 ROOM: [place] [address] Recommended Discharge Disposition: Home Recommended Discharge Disposition Comments: Recommend home with family assist at discharge. No further home OT needs. Report have all bathroom DME, walker and crutches for home needs. 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 Information on how to obtain provided. Anticipated Discharge Needs: Physical Assist at Home Physical Assist at Home for: Cleaning;Laundry;Mercy pping;Transportation OT 6 Clicks Score: 21 Precautions/Activity Restrictions: Weight Bearing Restrictions;Fall Risk Precaution/Activity Restriction Comments: soft cast in place Extremity With Weight Bearing Restricted: Left Lower Extremity Left Lower Extremity Weight Bearing Status: NWB Current Hospital Course: Status post L ORIF ankle 12/24/20 Reason for Hospital Admission: Accident involving rome murcia. L ankle fracture Relevant Past Medical History: none Response to Therapy Interventions: Good participation in activities, Notable progression with functional activities/skills, On-track to achieve discharge goals Cognition/Communicat ion Deficits Responsiveness: Alert Follows Commands: 3-step Commands Treatment Interventions: Education;Self Care / Home Management;Functiona l Mobility Training;Balance Training Home Environment Patient Lives With: Spouse Assistance Available: 24 Hour Entry To Home: Stairs Number Of Stairs Into Home: 3 Number Of Stairs To Bed/Bath: 0 Tub/Shower Type: tub/shower-has seat/equipment in storage from previous surgeries Laundry: spouse can do Equipment Owned: Cane;Wheeled Walker;Shower Chair;Elevated Toilet Seat (crutches issued by PT prior to OT session) Prior Functional Level: Within Functional Limits 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 We've both been through a lot of this with previous surgeries. I feel pretty good. Just wondering how to put on my pants. Reports some pain in left ankle after increased ADL/mobility with OT/PT. CURRENT FUNCTIONAL STATUS: Most recent performance Current Activities of Daily Living Assist Level Additional Information Feeding Independent Grooming Stand By Assistance Bathing Upper Body Set Up Bathing Lower Body Minimal Assistance Dressing Upper Body Set Up Dressing Lower Body Contact Guard Assistance Toileting Contact Guard Assistance Instrumental Activities of Daily Living Assist Level Additional Information Meal/Beverage Prep Cleaning Laundry Medication Management with Strategies Functional Mobility Assist Level Additional Information Rolling Supine to Sit Sit to Supine Stand By Assistance Scooting Stand By Assistance Sit to Stand Contact Guard Assistance Stand to Sit Stand By Assistance Bed to Chair Toilet/Commode Contact Guard Assistance Shower Functional Mobility Contact Guard Assistance;Additiona l Information Crutch(es) (or wheeled walker) Functional ADL mobility training in room. Patient prefers walker over crutches in indoor setting to maintain NWB LLE for limited mobility. Patient with increased pain following increased mobility, with RN in to provide pain medication. present, supportive. 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 Concerns with distances, uneven ground. Education provided for rental of wheelchair or borrowing from friend as able. Blank rojo indicate activity not attempted Range of Motion: WFL Strength: WFL Balance: Static Sitting;Dynamic Sitting;Static Standing;Dynamic Standing Static Sitting Balance: Normal Patient able to maintain steady balance without handhold support Dynamic Sitting Balance: Good Patient accepts moderate challenge, able to maintain balance while picking up object off floor Static Standing Balance: Fair Patient able to maintain balance with handhold support, may require occasional minimal assistance Dynamic Standing Balance: Fair Patient accepts minimal challenge, able to maintain balance while turning head/trunk Activity Tolerance: Sitting Activity;Standing Activity Sitting Activity: Edge of bed for ADL adequate for home ADL needs Standing Activity: Functional mobility for ADL, ADL transfers with crutches or walker Standing Activity Tolerance (in minutes): 4 Learning/Educational Needs: Discharge Plan;Family Education/Training;F unctional Activities/Mobility; Safety;Self Care Goals for Plan of Care: Initial evaluation and patient/family education provided. No further OT needs. Anticipate home with family when ready for discharge. Patient will be discontinued fr (more content not included)... Normal [facility] THERAPY NT HNO ID: [id number] Author: Berna Fernández PT Service: Physical Therapy Author Type: Physical Therapist Type: Therapy (PT/OT/Speech/Resp) Filed: 12/25/2020 10:29 AM Note Text: Physical Therapy Evaluation SERVICE DATE: 12/25/2020 SERVICE TIME: 0900 to 0930 ROOM: [place] [address] Recommended Discharge Disposition: Home PT 6 Clicks Score: 20 Precautions/Activity Restrictions: Weight Bearing Restrictions;Fall Risk Precaution/Activity Restriction Comments: soft cast in place Extremity With Weight Bearing Restricted: Left Lower Extremity Left Lower Extremity Weight Bearing Status: NWB Current Hospital Course: Status post L ORIF ankle 12/24/20 Reason for Hospital Admission: Accident involving rome murcia. L ankle fracture Relevant Past Medical History: none Response to Therapy Interventions: Good participation in activities Continue skilled needs due to: Functional mobility/skill impairments, Safety concerns Physical Therapy Problem List: Education Deficit;Safety Deficits;Functional Mobility Impairment;Balance Impaired Treatment Interventions: Education;Strengthen ing;Functional Mobility Training;Balance Training;Neuromuscul ar Re-education Home Environment Patient Lives With: Spouse Assistance Available: 24 Hour Entry To Home: Stairs Number Of Stairs Into Home: 3 Number Of Stairs To Bed/Bath: 0 Tub/Shower Type: tub Laundry: spouse can do Equipment Owned: Cane;Wheeled Walker;Elevated Toilet Seat;Shower Chair Prior Functional Level: Within Functional Limits Prior Functional Level Comments: Independent Patient Report: Agreeable to PT CURRENT FUNCTIONAL STATUS: Most recent performance Current Functional Mobility Assist Level Additional Information Rolling Supine to Sit Supervision Sit to Supine Scooting Sit to Stand Contact Guard Assistance cues for hand/foot placement Stand to Sit Contact Guard Assistance cues for hand/foot placement, reach back for the chair Bed to Chair Toilet/Commode Gait Contact Guard Assistance Gait Device: Wheeled Walker Gait Distance (feet): 10 x 2 cues for weight bearing precautions, safety throughout Stairs Minimal Assistance Stairs Device: Crutch(es);Rail Number of Stairs: 4 cues for safety and sequence. Curb Step Car Transfer Blank rojo indicate activity not attempted Gait Deviations Left Lower Extremity: (NWB) Range of Motion: WFL Except;ROM Limitation Comments ROM Limitation Comments: L ankle in splint Strength: WFL Except;Strength Limitation Comments Strength Limitation Comments: L ankle JH-HLM: 6: Walk 10 steps or more Learning/Educational Needs: Functional Activities/Mobility; Plan of Care;Precautions;Saf ety Goals for Plan of Care: Patient /Caregiver Goals: Go Home Transfer sit to/from stand with: Independent Ambulate with: Independent Distance: 20 feet intervals Device: Wheeled Walker Ambulate up and down steps with: Independent Number of steps: 4 Device: Rail Rehab Potential: Good Patient will be discontinued from Physical Therapy when no further skilled needs are identified in this setting. PLAN: PT Frequency: 5 times per week Plan of Care developed with: Patient TREATMENT INTERVENTIONS: Therapy Diagnosis: Reduced mobility-other;Unste adiness on feet Interventions Provided: Evaluation;Gait Training (29901) $ Evaluation-Low (60873) Billed Units: 1 unit Gait Training (25726) Treatment Minutes: 15 $ Gait Training (96083) Billed Units: 1 unit Training AND education provided in: Anatomy and impact on deficits, Benefits of in-hospital mobility, Discharge planning, Equipment, Gait pattern, reduction of deviations, Home safety, Role of Physical Therapy, Stair navigation, Standing balance, Transfers The following therapeutic skills were used: Activity dosing, Cues for sequencing/proper technique for activity, Cuing verbal Total Timed Code Treatment Minutes: 15 Total Treatment Time (minutes): 30 Please see discipline specific clinical documentation flowsheet for complete details for this therapy evaluation/treatment . SIGNATURE: Berna Fernández PT PATIENT NAME: Dominic Yu DATE: December 25, 2020 TIME: 10:28 AM Normal [facility] XR ANKLE 2V AP/LAT LTon 07-0 5-2021 XR ANKLE 2V AP/LAT LT * * *Final Report* * * DATE OF EXAM: Dec 24 2020 10:11PM AKO [id number] - XR ANKLE 2V AP/LAT LT / PROCEDURE REASON: O.R.I.F. * * * * Physician Interpretation * * * * EXAM TITLE: XR ANKLE 2V AP/LAT LT DATE: 12/25/2020 7:46 AM INDICATION: Intraoperative for fracture fixation COMPARISON: 12/23/2020 FINDINGS: 30 seconds of fluoroscopy time was provided. 4 spot images were obtained. These views demonstrate different stages of fracture fixation at the left ankle. IMPRESSION: Intraoperative exam. Refer to the operative report for details. Sales And Marketing Representative: PSC[facility] Transcribe Date/Time: Dec 25 2020 7:46A Dictated by : JANNET NELSON MD This examination was interpreted and the report reviewed and electronically signed by: JANNET NELSON MD on Dec 25 2020 7:47AM EST [id number] CN Normal [facility] XR ANKLE 3V AP/LAT/OBL LTon 12-25-2020 XR ANKLE 3V AP/LAT/OBL LT * * *Final Report* * * DATE OF EXAM: Dec 24 2020 10:27PM AKX [id number] - XR ANKLE 3V AP/LAT/OBL LT / PROCEDURE REASON: Fracture, ankle * * * * Physician Interpretation * * * * XR ANKLE 3V AP/LAT/OBL LT Comparison: 12/23/2020 Clinical history: Fracture, ankle Findings: Overlying casting material limits osseous detail. Status post interval ORIF of trimalleolar fracture with fibular side plate and screw fixation and two tibial screws. Improved near-anatomic alignment with borderline widening of the medial clear space. Skin justin are noted. Impression: Improved alignment status post ORIF. Sales And Marketing Representative: PSCB Transcribe Date/Time: Dec 24 2020 10:30P Dictated by : CHRIS HERZOG MD This examination was interpreted and the report reviewed and electronically signed by: CHRIS HERZOG MD on Dec 24 2020 10:35PM EST [id number] CN Normal [facility] ALLIED HEALTHon 12-24-2020 ALLIED HEALTH HNO ID: [id number] Author: RT Kandi(R) Service: Radiology Author Type: Kettle Tender Type: [employer] [facility] Filed: 12/23/2020 11:41 PM Note Text: Radiology Service Progress Note PATIENT NAME: Dominic Yu DATE OF SERVICE: December 23, 2020 TIME: 11:40 PM PATIENT IDENTITY VERIFICATION COMPLETED USING TWO (2) IDENTIFIERS: Name and Date of confirmed by patient verbally and Name and Date of confirmed by identification band. FALL SCREENING: Has the patient had 2 falls in the last year or 1 fall with injury or currently using an Ambulatory Assistive Device (Walker, Cane, Wheelchair, Crutches, etc.)? Emergency Room Patient: Screened in ED PATIENT GENDER DATA: Male PATIENT RELEVANT IMPLANT DATA REVIEWED: Not Applicable RADIOLOGY DEPARTMENT: CT; Exam(s) Completed: Lower extremity PERIPHERAL IV DATA: Not applicable SIGNED BY: RT Kandi(R) December 23, 2020 11:40 PM [facility] ALLIED HEALTH HNO ID: [id number] Author: RT Madeline(R) Service: Radiology Author Type: Kettle Tender Type: [employer] [facility] Filed: 12/23/2020 10:51 PM Note Text: Radiology Service Progress Note PATIENT NAME: Dominic Yu DATE OF SERVICE: December 23, 2020 TIME: 10:51 PM PATIENT IDENTITY VERIFICATION COMPLETED USING TWO (2) IDENTIFIERS: Name and Date of confirmed by patient verbally and Name and Date of confirmed by identification band. FALL SCREENING: Has the patient had 2 falls in the last year or 1 fall with injury or currently using an Ambulatory Assistive Device (Walker, Cane, Wheelchair, Crutches, etc.)? Emergency Room Patient: Screened in ED PATIENT GENDER DATA: Male PATIENT RELEVANT IMPLANT DATA REVIEWED: Not Applicable RADIOLOGY DEPARTMENT: General X-ray: Exam(s) Completed: Lower Extremity X-Ray(s): Ankle, Left PERIPHERAL IV DATA: Not applicable SIGNED BY: RT Madeline(R) December 23, 2020 10:51 PM [facility] ANES PRE-OPon 12-24-2020 ANES PRE-OP HNO ID: [id number] Author: Michael Marshall MD Service: Anesthesiology Author Type: Physician Type: Anesthesia Preprocedure Evaluation Filed: 12/24/2020 8:16 PM Note Text: ANESTHESIOLOGY DAY OF SURGERY NOTE : 1965 Procedure(s) (LRB): ORIF ANKLE TRIMALLEOLAR, WITH FIXATION POSTERIOR LIP (Left) ORIF SYNDESMOSIS LOWER EXTREMITY (Left) Surgeon(s): Kwame Cedillo MD Estimated body mass index is 33.4 kg/m? as calculated from the following: Height as of this encounter: 188 cm (6' 2 ). Weight as of this encounter: 118 kg (260 lb 2.3 oz). Most recent hematocrit and potassium results: Hematocrit 40.7 12/23/2020 Potassium 3.8 12/23/2020 Relevant Problems No relevant active problems I - PHYSICAL EVALUATION AIRWAY Patient intubated: No. Mallampati: II. TM distance: >3 FB. Neck ROM: full ROM without neurological symptoms. Mouth opening: adequate. DENTAL Normal dental observations. Dental findings: teeth intact. II - ANESTHESIA PLAN ASA Score: 2; emergent. Anesthetic Plan: general Airway type: ETT NPO Status: adequate Monitoring plan: standard ASA. Postoperative analgesic plan: parenteral or oral opioids and multimodal analgesia. Anesthetic Risks, Benefits, Alternatives, Personnel Discussed. Consent obtained from: patient.Patient / Surrogate agrees to blood products: blood products not planned Potential Anesthesia issues that may suggest increased risk of complications or contraindication to planned procedure: none. No vitals data found for the desired time range. Facility-Administere d Medications as of 12/24/2020 Medication Dose Route Frequency - [MAR Hold due to Transfer] lamoTRIgine (LaMICtal) tab(s) 150 mg 150 mg ORAL DAILY - [MAR Hold due to Transfer] metoprolol succinate ER 25 mg tab(s) (TOPROL XL) 25 mg ORAL DAILY - [MAR Hold due to Transfer] doxazosin 1 mg tab(s) (CARDURA) 1 mg ORAL AT BEDTIME - [MAR Hold due to Transfer] losartan 25 mg tab(s) (COZAAR) 25 mg ORAL DAILY - [MAR Hold due to Transfer] FLUoxetine 20 mg cap(s) (PROzac) 20 mg ORAL DAILY - [MAR Hold due to Transfer] pantoprazole DR 40 mg tab(s) (PROTONIX) 40 mg ORAL DAILY (6 AM) - [MAR Hold due to Transfer] lactated ringers iv infusion 150 mL/hr INTRAVENOUS CONTINUOUS - [AUG Hold due to Transfer] ondansetron (PF) 4 mg injection (ZOFRAN) 4 mg INTRAVENOUS q 6 H PRN - [MAR Hold due to Transfer] acetaminophen 975 mg tab(s) (TYLENOL) 975 mg ORAL q 6 H - [MAR Hold due to Transfer] oxyCODONE IR 5 mg tab(s) (ROXICODONE) 5 mg ORAL q 6 H PRN - [COMPLETED] morphine 4 mg injection 4 mg INTRAVENOUS ONCE - [COMPLETED] ondansetron (PF) 4 mg injection (ZOFRAN) 4 mg INTRAVENOUS ONCE - [COMPLETED] morphine 4 mg injection 4 mg INTRAVENOUS ONCE - [] lidocaine 10 mg/mL (1 %) 200 mg injection (XYLOCAINE) 20 mL INTRADERMAL ONCE - [COMPLETED] fentaNYL 50 mcg/mL 50 mcg injection (SUBLIMAZE) 50 mcg INTRAVENOUS ONCE Outpatient Medications as of 12/24/2020 Medication Sig - lamoTRIgine (LAMICTAL) 100 mg tablet Take 150 mg by mouth once daily. - Aspirin 81 mg tab Take 1 tablet by mouth once daily. - therapeutic multivitamin tablet Take 1 tablet by mouth once daily. - metoprolol succinate ER (TOPROL XL) 25 mg 24 hr tablet Take 25 mg by mouth once daily. - doxazosin (CARDURA) 1 mg tablet Take 1 mg by mouth daily at bedtime. - Amoxicillin 500 mg tablet Take 6 capsules one hour before procedure and 2 capsules six hours after procedure - antiox#52-mm8-sgv-ep a-lut-zeax (I-CAPS) 280-10-2 mg cap Take 2 capsules by mouth twice daily. I have interviewed and examined the patient. I have reviewed the medical record and/or the pre-anesthesia evaluation, pertinent labs, and test results. This contains updated information obtained within 48 hours of Surgery/Procedure. SIGNATURE: Michael Marshall MD PATIENT NAME: Dominic Yu DATE: December 24, 2020 TIME: 8:15 PM CSN: [id number] [facility] BRIEF OP NOTon 12-24-2020 BRIEF OP NOT HNO ID: [id number] Author: Blas Tucker MD Service: Orthopaedic Surgery Author Type: Resident Type: Brief Op Note Filed: 12/24/2020 9:55 PM Note Text: BRIEF OP NOTE LOG ID: [id number] Surgery/Procedure Date: 12/24/2020 Incision/Procedure Start Time: 8:12 PM Incision Close/Procedure End Time: 9:17 PM Surgeon(s)/Procedura list(s) and [employer] Sequest[employer] Plant Engineer(s): Surgeon(s) and Role: * Kwame Cedillo MD - Primary Procedure(s): Open Reduction Internal Fixation Left Trimalleolar Ankle Fracture Anesthesia: Choice - Anesthesia Consult Findings: Trimalleolar ankle fracture Estimated Blood Loss: < 25 mls Specimens: None Complications: None Pre-Op/Pre-Procedure Diagnosis: Trimalleolar ankle fracture Post-Op/Post-Procedu re Diagnosis: * No post-op diagnosis entered * Plan: Diet regular Follow up PACU xray left ankle NWB LLE Maintain splint C/D/I PT/OT DVT prophylaxis: Aspirin 81 bid Pain Control Anticipate discharge home in 1 day SIGNATURE: Blas Tucker MD PATIENT NAME: Dominic Yu DATE: December 24, 2020 TIME: 9:52 PM PAGER/CONTACT #: Normal [facility] Basic metabolic 2000 panelon 12-24-2020 Anion gap [Moles/Vol] 7 mmol/L Low 9-18 [facility] Comment on above: Order Comment: Speci men Type: BLOOD SPECIMEN Performed By: #### 2 4321-2 #### [facility] CLIA [id number] [address] [place] [address] Calcium [Mass/Vol] 9.0 mg/dL Normal 8.5-10.2 [facility] Comment on above: Order Comment: Speci men Type: BLOOD SPECIMEN Performed By: #### 2 4321-2 #### [facility] CLIA [id number] [address] [place] [address] Chloride [Moles/Vol] 106 mmol/L High 97-105 [facility] Comment on above: Order Comment: Speci men Type: BLOOD SPECIMEN Performed By: #### 2 4321-2 #### [facility] CLIA [id number] [address] [place] [address] CO2 [Moles/Vol] 28 mmol/L Normal 22-30 [facility] Comment on above: Order Comment: Speci men Type: BLOOD SPECIMEN Performed By: #### 2 4321-2 #### [facility] CLIA [id number] [address] [place] [address] Creatinine [Mass/Vol] 0.87 mg/dL Normal 0.73-1.22 [facility] Comment on above: Order Comment: Speci men Type: BLOOD SPECIMEN Performed By: #### 2 4321-2 #### [facility] CLIA [id number] [address] [place] [address] GFR/1.73 sq M.predicted MDRD (S/P/Bld) [Vol rate/Area] mL/min/{1.73_m2} Normal [facility] Comment on above: Order Comment: Speci men Type: BLOOD SPECIMEN Result Comment: >60 eGFR (Estimated GFR) Units of measure: mL/min/1.73 [...] eGFR may not accurately reflect actual GFR. Performed By: #### 2 4321-2 #### [facility] CLIA [id number] [address] [place] [address] Glucose [Mass/Vol] 97 mg/dL Normal 74-99 [facility] Comment on above: Order Comment: Speci men Type: BLOOD SPECIMEN Result Comment: The Indian Diabetes Association (ADA) provides guidance for cutoff [...] Standards of Medical Care in Diabetes 2016, Indian Diabetes Association. Diabetes Care. 2016.39(Suppl 1). Performed By: #### 2 4321-2 #### [facility] CLIA [id number] [address] [place] [address] Potassium [Moles/Vol] 3.8 mmol/L Normal 3.7-5.1 [facility] Comment on above: Order Comment: Speci men Type: BLOOD SPECIMEN Performed By: #### 2 4321-2 #### [facility] CLIA [id number] [address] [place] [address] Sodium [Moles/Vol] 141 mmol/L Normal 136-144 [facility] Comment on above: Order Comment: Speci men Type: BLOOD SPECIMEN Performed By: #### 2 4321-2 #### [facility] CLIA [id number] [address] [place] [address] Urea nitrogen [Mass/Vol] 13 mg/dL Normal 9-24 [facility] Comment on above: Order Comment: Speci men Type: BLOOD SPECIMEN Performed By: #### 2 4321-2 #### [facility] CLIA [id number] [address] [place] [address] CBC panel Auto (Bld)on 12-24 Erythrocyte distribution width (RBC) [Ratio] 13.2 % Normal 11.5-15.0 [facility] Comment on above: Order Comment: Speci men Type: BLOOD SPECIMEN Performed By: #### 2 4321-2 #### [facility] CLIA [id number] [address] [place] [address] Hematocrit (Bld) [Volume fraction] 40.7 % Normal 39.0-51.0 [facility] Comment on above: Order Comment: Speci men Type: BLOOD SPECIMEN Performed By: #### 2 4321-2 #### [facility] CLIA [id number] [address] [place] [address] Hemoglobin (Bld) [Mass/Vol] 13.1 g/dL Normal 13.0-17.0 [facility] Comment on above: Order Comment: Speci men Type: BLOOD SPECIMEN Performed By: #### 2 4321-2 #### [facility] CLIA [id number] [address] [place] [address] MCH (RBC) [Entitic mass] 29.2 pg Normal 26.0-34.0 [facility] Comment on above: Order Comment: Speci men Type: BLOOD SPECIMEN Performed By: #### 2 4321-2 #### [facility] CLIA [id number] [address] [place] [address] MCHC (RBC) [Mass/Vol] 32.2 g/dL Normal 30.5-36.0 [facility] Comment on above: Order Comment: Speci men Type: BLOOD SPECIMEN Performed By: #### 2 4321-2 #### [facility] CLIA [id number] [address] [place] [address] MCV (RBC) [Entitic vol] 90.6 fL Normal 80.0-100.0 [facility] Comment on above: Order Comment: Speci men Type: BLOOD SPECIMEN Performed By: #### 2 4321-2 #### [facility] CLIA [id number] [address] [place] [address] Nucleated RBC (Bld) [#/Vol] 10*3/uL Normal <0.01 [facility] Comment on above: Order Comment: Speci men Type: BLOOD SPECIMEN Performed By: #### 2 4321-2 #### [facility] CLIA [id number] [address] [place] [address] Platelet mean volume (Bld) [Entitic vol] 8.6 fL Low 9.0-12.7 [facility] Comment on above: Order Comment: Speci men Type: BLOOD SPECIMEN Performed By: #### 2 4321-2 #### [facility] CLIA [id number] [address] [place] [address] Platelets (Bld) [#/Vol] 296 10*3/uL Normal 150-400 [facility] Comment on above: Order Comment: Speci men Type: BLOOD SPECIMEN Performed By: #### 2 4321-2 #### [facility] CLIA [id number] [address] [place] [address] RBC (Bld) [#/Vol] 4.49 10*6/uL Normal 4.20-6.00 [facility] Comment on above: Order Comment: Speci men Type: BLOOD SPECIMEN Performed By: #### 2 4321-2 #### [facility] CLIA [id number] [address] [place] [address] WBC (Bld) [#/Vol] 8.83 10*3/uL Normal 3.70-11.00 [facility] Comment on above: Order Comment: Speci men Type: BLOOD SPECIMEN Performed By: #### 2 4321-2 #### [facility] CLIA [id number] [address] [place] [address] CT ANKLE WO IVCON LTon 12-24 CT ANKLE WO IVCON LT * * *Final Report* * * DATE OF EXAM: Dec 23 2020 11:46PM [facility] 0060 - CT ANKLE WO IVCON LT / PROCEDURE REASON: Fracture, ankle * * * * Physician Interpretation * * * * EXAMINATION: CT ANKLE WO IVCON LT CLINICAL HISTORY: Trauma with fracture and left ankle pain TECHNIQUE: Spiral, high resolution axial images were obtained from the skull base to the lumbosacral junction with sagittal and coronal planar reconstructions. MQ: CTCTLWO_3 Dose-Length Product (DLP): 147 mGy*cm. CT Dose Reduction Employed: Automated exposure control(AEC) and iterative recon COMPARISON: Left ankle radiographs from earlier the same day RESULT: Lateral subluxation of the foot as noted on image 55 series 6 with widening of the medial joint space at approximately 1.1 cm. The lateral tibial fracture fragment remains in articulation with the talus and lateral malleolus as noted in image 61 series 6. Posterior malleolus fracture fragment with approximately 1 cm of separation between the posterior fracture fragment and the remainder of the tibia. Approximately 0.3 cm of step-off is seen at the articular surface. Fracture of the inferior most aspect of the medial malleolus with lateral migration of the malleoli fracture fragments/tip with the talus as noted in coronal image 55 series 6. The lateral malleolus is intact. There is a comminuted fracture of the distal fibular metadiaphysis as noted in image 58 series 6. The talus and calcaneus appear intact. The anterior posterior subtalar joints as well as the talar tarsal and calcaneal tarsal joints appear intact. Diffuse soft tissue swelling. IMPRESSION: 1. Lateral subluxation of the foot as above. 2. Fractures of the medial malleolus, posterior malleolus and distal fibula as described in detail above. Sales And Marketing Representative: PSCB Transcribe Date/Time: Dec 24 2020 12:02A Dictated by : DAKOTA ZAMBRANO MD This examination was interpreted and the report reviewed and electronically signed by: DAKOTA ZAMBRANO MD on Dec 24 2020 12:10AM EST [id number] CN Normal [facility] ED NOTEon 12-24-2020 ED NOTE HNO ID: [id number] Author: Donal Alicia RN Service: Emergency Medicine Author Type: Registered Nurse Type: ED Notes Filed: 12/24/2020 3:32 AM Note Text: Pt report was called to the floor, Brando HICKS. Pt in no acute distress and he accepts admission to the floor. Pt is going to the floor in bed with a tech. Normal [facility] ED NOTE HNO ID: [id number] Author: Naheed Solorio RN Service: Emergency Medicine Author Type: Registered Nurse Type: ED Notes Filed: 12/23/2020 10:57 PM Note Text: CT notified patient ready for transport. Normal [facility] HISTORY PHYSICALon HISTORY PHYSICAL HNO ID: [id number] Author: Franki Albert MD Service: Orthopaedic Surgery Author Type: Resident Type: HANDP Filed: 12/23/2020 10:56 PM Note Text: Attestation signed by Kwame Cedillo MD at 12/24/2020 7:32 PM Attending Note I personally saw and examined the patient. I reviewed the resident's note. I agree with the resident's assessment and plan unless otherwise noted. Signature: Kwame Cedillo MD Date: 12/24/2020 Time: 7:32 PM Delayed entry I personally saw/examined the patient on 12/24/2020 . Kwame Cedillo MD ORTHOPAEDIC SURGERY HANDP Pt: DOMINIC YU Date of Admission: 12/23/2020 Chief Complaint: Left Ankle Pain HPI: 55 year old male presented to [facility] ED as a transfer from [place] on 12/23/2020 for evaluation of left ankle pain. 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 Endorses severe and immediate left ankle pain with the inability to ambulate/ The patient denies numbness and tingling of the left lower extremity. The patient denies prior pain or injury to the left ankle. The patient lives at home and ambulates without assistance at baseline. The patient denies fevers, chills, nausea, vomiting and other constitutional symptoms at this time. The patient has no additional orthopaedic complaints at this time. PAST MEDICAL HISTORY Diagnosis Date - Hypertension - Psychiatric disorder PAST SURGICAL HISTORY Procedure Laterality Date - JOINT REPLACEMENT HX hip Allergies: Hay Fever [Seasonal Allergies] Current Facility-Administere d Medications Medication Dose Route Frequency - lidocaine 10 mg/mL (1 %) 200 mg injection (XYLOCAINE) 20 mL INTRADERMAL ONCE Current Outpatient Medications Medication Sig - omeprazole (PRILOSEC) 40 mg capsule Take 40 mg by mouth once daily. - losartan (COZAAR) 25 mg tablet Take 25 mg by mouth once daily. - FLUoxetine HCl 20 mg tablet Take 20 mg by mouth once daily. - sildenafil (VIAGRA) 100 mg tablet Take 100 mg by mouth as needed. - lamoTRIgine (LAMICTAL) 100 mg tablet Take 150 mg by mouth once daily. - metoprolol succinate ER (TOPROL XL) 25 mg 24 hr tablet Take 25 mg by mouth once daily. - doxazosin (CARDURA) 1 mg tablet Take 1 mg by mouth daily at bedtime. - Amoxicillin 500 mg tablet Take 6 capsules one hour before procedure and 2 capsules six hours after procedure - Aspirin 81 mg tab Take 1 tablet by mouth once daily. - therapeutic multivitamin tablet Take 1 tablet by mouth once daily. - antiox#94-he0-uct-ep a-lut-zeax (I-CAPS) 280-10-2 mg cap Take 2 capsules by mouth twice daily. FAMILY HISTORY Problem Relation Age of Onset - Heart Father - Hypertension Mother Negative for family history of bleeding and clotting disorders. Social History Tobacco Use - Smoking status: Never Smoker - Smokeless tobacco: Current User Types: Chew - Tobacco comment: FOR 27 YEARS, 1 CAN EVERY 2 DAYS Vaping Use - Vaping Use: Never used Substance Use Topics - Alcohol use: Yes Alcohol/week: 0.0 standard drinks Types: 1 Cans of Beer (12oz) per week Comment: social - Drug use: Not on file ROS: 10 pt ROS neg except in HPI O: Vitals: BP 136/87 Pulse 76 Temp 37.1 ?C (98.7 ?F) (Oral) Resp 22 Ht 193 cm (6' 4 ) Wt 113.4 kg (250 lb) SpO2 95% BMI 30.43 kg/m? Physical exam: General: AANDO x 3; NAD. Cooperative throughout entire interview Head: Atraumatic, Normocephalic Neck: Supple Chest: Unlabored breathing Cardiovascular: intact pulses Abdomen: Soft, non-tender Pelvis: Deferred Neuro: Grossly intact Left Lower Extremity: There is a gross deformity about the ankle. There are no superficial abrasions, lacerations or open wounds present about the ankle. There is no erythema. There is medial ecchymotic development with moderate diffuse ankle swelling. The patient is tender to palpation diffusely about the ankle. There is no tenderness about the proximal lower leg. Compartments of the thigh and leg are soft and compressible. The patient tolerates passive stretch of the digits. Formal ankle range of motion was not assessed due to known ankle fracture. +DF/PF/EHL motor function. SILT andrade/sa/sp/dp/t. 2+ DP pulse with BCR to the digits of the foot. Secondary Survey: No TTP of any other bony prominences or joints of the upper and lower extremities bilaterally except that described above. Labs: BMP: Sodium 138 06/30/2013 Potassium 3.8 06/30/2013 Chloride 104 06/30/2013 CO2 28 06/30/2013 BUN 14 06/30/2013 Creatinine 0.87 06/30/2013 Glucose 134 06/30/2013 CBC: WBC 14.09 06/30/2013 Hemoglobin 9.4 06/30/2013 Hematocrit 28.4 06/30/2013 Platelet Count 190 06/30/2013 COAGS: No results found for this basename: aptt,inr SED RATE/CRP: No results found for this basename: wsr:*,crp:* Candy (more content not included)... Normal [facility] PT panel Coag (PPP)on 2020 INR Coag (PPP) [Relative time] 1.1 {INR} Normal 0.9-1.3 [facility] Comment on above: Order Comment: Speci men Type: BLOOD SPECIMEN Result Comment: Merlyn min K Antagonist (VKA) Therapeutic Range: INR 2 to 3 (Target INR of 2.5) Note: For patients treated with VKA drugs, such as warfarin, the [employer] 2012 Guideline recommends a therapeutic INR range of 2 to 3 (target INR of 2.5). This recommendation includes high-risk patients with antiphospholipid syndrome with previous arterial or venous thromboembolism, current-generation mechanical or bioprosthetic aortic heart valve replacement. Note: Patients with mechanical aortic valve replacement and additional risk factors for thromboembolic events (atrial fibrillation, previous thromboembolism, LV dysfunction, hypercoagulable conditions) or an older generation mechanical AVR (i.e., ball in-Cage) or any mechanical MVR should have a INR therapeutic range of 2.5 to 3.5 (target INR of 3). Margarita GH, et al. Chest 2012, 141:7S-47S Katie RA et al. [facility] 2017, 70: 252-289 Performed By: #### 3 4528-0 #### [facility] CLIA [id number] [address] [place] [address] PT Coag (PPP) [Time] 11.4 s Normal 9.7-13.0 [facility] Comment on above: Order Comment: Speci men Type: BLOOD SPECIMEN Performed By: #### 3 4528-0 #### [facility] CLIA [id number] [address] [place] [address] SARS-CoV-2 RNA Resp Ql SUKUMAR+p robeon 12-24-2020 SARS-CoV-2 (COVID-19) RNA SUKUMAR+probe Ql (Resp) COVID 19 RESULT: SARS-CoV-2 (Agent of COVID-19) Not Detected by PCR. This test has been authorized by FDA under an Emergency Use Authorization (EUA) [facility] Comment on above: Performed By: #### 9 4500-6 ####[facility] [id number] [place] [address] TYPE AND SCREENon 12-24-2020 ABO A [facility] Comment on above: Order Comment: Speci men Type: BLOOD SPECIMEN Performed By: #### T SCR #### [facility] CLIA [id number] [address] [place] [address] HISTORICAL AB SCR STATUS Negative [facility] Comment on above: Order Comment: Speci men Type: BLOOD SPECIMEN Performed By: #### T SCR #### [facility] CLIA [id number] [address] [place] [address] Rh Nom (Bld) Positive [facility] Comment on above: Order Comment: Speci men Type: BLOOD SPECIMEN Performed By: #### T SCR #### [facility] CLIA [id number] [address] [place] [address] TYPE AND SCREEN EXPIRATION 12/27/2020 23:59 [facility] Comment on above: Order Comment: Speci men Type: BLOOD SPECIMEN Performed By: #### T SCR #### [facility] CLIA [id number] [address] [place] [address] XR ANKLE 3V AP/LAT/OBL LTon 12-24-2020 XR ANKLE 3V AP/LAT/OBL LT * * *Final Report* * * DATE OF EXAM: Dec 23 2020 10:50PM AKX 5298 - XR ANKLE 3V AP/LAT/OBL LT / PROCEDURE REASON: Post-operative / post-procedure assessment, asymptomatic * * * * Physician Interpretation * * * * EXAMINATION: XR ANKLE 3V AP/LAT/OBL LT HISTORY: POST REDUCTION Post-operative / post-procedure assessment, asymptomatic. TECHNIQUE: XR ANKLE 3V AP/LAT/OBL LT Laterality: LEFT Number of different views (projections): 2 M: XB_1 COMPARISON: Left ankle radiographs from earlier the same day. RESULT: There has been interval placement of a fiberglass cast which degrades fine osseous detail. There is improved alignment of the ankle mortise. The comminuted distal fibular fracture is better aligned. Posterior malleolus fracture appears similarly aligned. IMPRESSION: Improved alignment of the distal fibular and posterior malleolus fractures as well as the ankle mortise. Sales And Marketing Representative: MAME Transcribe Date/Time: Dec 23 2020 11:39P Dictated by : JOYCE MENDEZ MD This examination was interpreted and the report reviewed and electronically signed by: JOYCE MENDEZ MD on Dec 23 2020 11:41PM EST [id number] CN Normal [facility] ED NOTEon 12-23-2020 ED NOTE HNO ID: [id number] Author: Renee Hawkins RN Service: ? Author Type: Registered Nurse Type: ED Notes Filed: 12/23/2020 9:33 PM Note Text: [facility] Expected time: Means of arrival: Comments: [place] transfer Normal [facility] ED NOTE HNO ID: [id number] Author: Todd Dean RN Service: Emergency Medicine Author Type: Registered Nurse Type: ED Notes Filed: 12/23/2020 8:11 PM Note Text: Last known oral intake was around 1300 hrs this afternoon Normal [facility] ED NOTE HNO ID: [id number] Author: Todd Dean RN Service: Emergency Medicine Author Type: Registered Nurse Type: ED Notes Filed: 12/23/2020 7:48 PM Note Text: Pulse present with doppler to DP and PT on left foot. Normal [facility] ED NOTE HNO ID: [id number] Author: Todd Dean RN Service: Emergency Medicine Author Type: Registered Nurse Type: ED Notes Filed: 12/23/2020 7:09 PM Note Text: .. Patient informed: the name of medication, why we are giving it, possible side effects, what they may expect to feel, and was offered a chance to ask questions, prior to the administration of morphine and zofran Normal [facility] ED NOTE HNO ID: [id number] Author: Todd Dean RN Service: Emergency Medicine Author Type: Registered Nurse Type: ED Notes Filed: 12/23/2020 7:04 PM Note Text: Alert pt arrives with c/c of left ankle pain. 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 Pt denies any other injuries. Normal [facility] ED PROV NOTEon 12-23-2020 ED PROV NOTE HNO ID: [id number] Author: Rere Marc MD Service: Emergency Medicine Author Type: Physician Type: ED Provider Notes Filed: 12/23/2020 10:49 PM Note Text: ED Provider Note Patient Name: Dominic Yu SERVICE DATE: 12/23/20 History Patient presents with: Ankle Pain: Transfer from [place] for ortho consult. States his leg was caught in hay bailer. HPI The patient sustained direct trauma to his left ankle from a piece of farm machinery after his leg got caught in a hay bailer. He was evaluated at the [place] emergency department where they noted that he had a closed comminuted distal fibular fracture as well as a subluxation of the ankle joint involving the medial malleolus. He underwent splinting there and was transferred here for orthopedic consultation. The patient has been n.p.o. since 1 PM today. PAST MEDICAL HISTORY Diagnosis Date - Hypertension - Psychiatric disorder PAST SURGICAL HISTORY Procedure Laterality Date - JOINT REPLACEMENT HX hip FAMILY HISTORY Problem Relation Age of Onset - Heart Father - Hypertension Mother Social History Tobacco Use - Smoking status: Never Smoker - Smokeless tobacco: Current User Types: Chew - Tobacco comment: FOR 27 YEARS, 1 CAN EVERY 2 DAYS Vaping Use - Vaping Use: Never used Substance and Sexual Activity - Alcohol use: Yes Alcohol/week: 0.0 standard drinks Types: 1 Cans of Beer (12oz) per week Comment: social - Drug use: Not on file - Sexual activity: Yes Partners: Female ALLERGIES Allergen Reactions - Hay Fever [Seasonal* Itching The patient denies any impact any portion of his body other than his left ankle. He denies any headache, neck pain, chest pain, shortness of breath, abdominal pain, nausea, or vomiting. The only site of injury is to the left ankle. He reports that his pain is controlled at this time. The remaining appropriate systems were reviewed and were negative. Physical Exam BP 152/91 Pulse 80 Temp (Src) 98.7 (Oral) Resp 14 Ht 6' 4 (1.93m) Wt 250 lb (113.4kg) SpO2 94% BMI 30.44 kg/(m2). O2 Therapy: Room Air Physical Exam The patient is alert and oriented x3. He is in no apparent distress. His pupils are equal react light accommodation. His oropharynx is clear. There is an S1-S2 with a regular rate and rhythm. His lung rojo are clear, and his chest wall is nontender. His abdomen is soft and nontender. There is no palpable tenderness along the cervical spine. The pelvis is stable. Upon examination of the extremities, he has some swelling around the left ankle; however, pulses are strong and there are no lacerations or abrasions. His Achilles tendon is intact by palpation. Diagnostic Testing ED Labs Ordered and Reviewed - No data to display Procedures ED Course / Clinical Impression I reviewed the patient's x-rays from the outlying facility. I have spoken with the orthopedic service, and they are not in route to see the patient. The patient signed consent for conscious sedation as well as reduction of the fracture dislocation after the risk and benefits were explained to him. Upon reassessment, the orthopedic service felt that they would use local anesthesia instead of conscious sedation to reduce the fracture-subluxation . Clinical Impressions as of Dec 23 2246 Subluxation of ankle joint, left, initial encounter Closed fracture of distal end of fibula, unspecified fracture morphology, initial encounter The orthopedic surgery residents reduce the subluxation and place the patient in immobilization. He tolerated the procedure well. He will be admitted to the service of Dr. Cedillo with plans for surgery tomorrow. An expedited Covid is pending. MDM / Disposition / Plan The patient will be admitted to the orthopedic service in stable condition. MDM SIGNATURE: MD Rere Mora MD 12/23/20 2246 Normal [facility] ED PROV NOTE HNO ID: [id number] Author: Isabelle Martell DO Service: Emergency Medicine Author Type: Physician Type: ED Provider Notes Filed: 12/23/2020 8:44 PM Note Text: ED Provider Note Patient Name: Dominic Yu SERVICE DATE: 12/23/20 History Patient presents with: Ankle Injury Dominic Yu is a 55 year old male who presents with Ankle Injury. - Symptoms began 2 hours prior to arrival. - Severity: moderate - Timing: constant - Quality: sore - Ankle Injury is exacerbated by movement palpation. - Ankle Injury is not exacerbated by rest. - Symptoms are associated with left ankle pain and deformity. - Symptoms are not associated with head injury, headache, neck pain, back pain, chest pain, abdominal pain, left hip pain, left knee pain, left foot pain, numbness, weakness, wound. - Improved by nothing. - Not improved by anything. Patient states that he was using a machine for baling hay and it came down and hit him in the left ankle. He states he did not hit his head or pass out. Denies any other injury other than the left ankle. No numbness or weakness. He is on aspirin, no other blood thinners. Denies headache, neck pain, back pain, chest pain, abdominal pain, left hip pain, left knee pain, left foot pain, pain in the right lower extremity, pain in the upper extremities. PAST MEDICAL HISTORY Diagnosis Date - Hypertension - Psychiatric disorder PAST SURGICAL HISTORY Procedure Laterality Date - JOINT REPLACEMENT HX hip FAMILY HISTORY Problem Relation Age of Onset - Heart Father - Hypertension Mother Social History Tobacco Use - Smoking status: Never Smoker - Smokeless tobacco: Current User Types: Chew - Tobacco comment: FOR 27 YEARS, 1 CAN EVERY 2 DAYS Vaping Use - Vaping Use: Never used Substance and Sexual Activity - Alcohol use: Yes Alcohol/week: 0.0 standard drinks Types: 1 Cans of Beer (12oz) per week Comment: social - Drug use: Not on file - Sexual activity: Yes Partners: Female ALLERGIES Allergen Reactions - Hay Fever [Seasonal* Itching Review of Systems Constitutional: Negative for fever. Respiratory: Negative for shortness of breath. Cardiovascular: Negative for chest pain. Gastrointestinal: Negative for abdominal pain, nausea and vomiting. Genitourinary: Negative for flank pain. Musculoskeletal: Positive for arthralgias (Left ankle). Negative for back pain and neck pain. Skin: Negative for color change, rash and wound. Neurological: Negative for syncope, weakness, numbness and headaches. Psychiatric/Behavior al: Negative for agitation and confusion. Physical Exam BP 151/89 Pulse 76 Temp (Src) 99 (Temporal) Resp 18 Ht 6' 2 (1.88m) Wt 250 lb (113.4kg) SpO2 97% BMI 32.08 kg/(m2). O2 Therapy: Room Air Physical Exam Vitals and nursing note reviewed. Constitutional: General: He is not in acute distress. Appearance: He is not ill-appearing, toxic-appearing or diaphoretic. HENT: Head: Normocephalic and atraumatic. Mouth/Throat: Mouth: Mucous membranes are moist. Pharynx: Oropharynx is clear. Eyes: General: No scleral icterus. Conjunctiva/sclera: Conjunctivae normal. Cardiovascular: Rate and Rhythm: Normal rate and regular rhythm. Pulses: Normal pulses. Pulmonary: Effort: Pulmonary effort is normal. Breath sounds: Normal breath sounds. Abdominal: General: Abdomen is flat. Bowel sounds are normal. There is no distension. Palpations: Abdomen is soft. Tenderness: There is no abdominal tenderness. There is no right CVA tenderness, left CVA tenderness, guarding or rebound. Musculoskeletal: Cervical back: No swelling, edema, deformity, erythema, signs of trauma, lacerations, rigidity, tenderness or bony tenderness. Normal range of motion. Thoracic back: No swelling, edema, deformity, signs of trauma, lacerations, tenderness or bony tenderness. Normal range of motion. Lumbar back: No swelling, edema, deformity, signs of trauma, lacerations, tenderness or bony tenderness. Normal range of motion. Right hip: No tenderness or bony tenderness. Normal strength. Left hip: No tenderness or bony tenderness. Normal strength. Left knee: No swelling, deformity, erythema, ecchymosis, lacerations or bony tenderness. Normal range of motion. No tenderness. Left ankle: Swelling, deformity and ecchymosis present. No lacerations. Tenderness present. Left Achilles Tendon: No tenderness. Left foot: Normal range of motion and normal capillary refill. No swelling, deformity, laceration, tenderness or bony tenderness. Normal pulse. Comments: Skin intact to the left ankle. Skin: General: Skin is warm and dry. Capillary Refill: Capillary refill takes less than 2 seconds. Neurological: General: No focal deficit present. Mental Status: He is alert and oriented to person, place, and time. GCS: GCS eye subscore is 4. GCS verbal subscore is 5. GCS motor subscore (more content not included)... Normal [facility] XR ANKLE 3V AP/LAT/OBL LTon 12-23-2020 XR ANKLE 3V AP/LAT/OBL LT * * *Final Report* * * DATE OF EXAM: Dec 23 2020 7:31PM LDX 5298 - XR ANKLE 3V AP/LAT/OBL LT / PROCEDURE REASON: Ankle trauma, continued pain, initial exam * * * * Physician Interpretation * * * * EXAM TITLE: XR ANKLE 3V AP/LAT/OBL LT DATE: 12/23/2020 7:44 PM INDICATION: Left ankle pain secondary to injury COMPARISON: None. FINDINGS: There are comminuted appearing fractures of the distal fibula. There is subluxation of the ankle joint with a fracture involving the medial malleolus noted. Vascular calcifications are noted. IMPRESSION: Fractures/subluxatio n of the ankle. Sales And Marketing Representative: PSCB Transcribe Date/Time: Dec 23 2020 7:44P Dictated by : JANNET NELSON MD This examination was interpreted and the report reviewed and electronically signed by: JANNET NELSON MD on Dec 23 2020 7:45PM EST [id number] CN Normal [facility] COVID-19 Positive/Negativeon 10-12-2020 SARS-CoV-2 (COVID-19) N gene SUKUMAR+probe Ql (Resp) Negative Negative [facility] Comment on above: Reference: NegativeT esting for SARS-CoV-2 by RT-PCRThis test was developed and its performance characteristics determined by [employer] ([employer]) and validated at the [facility]. This test has not been FDA cleared or approved. This test has been authorized by FDA under an Emergency Use Authorization (EUA). This test has been validated in accordance with the FDA's Guidance Document (Policy for Diagnostics Testing in Laboratories Certified to Perform High Complexity Testing under CLIA prior to Emergency Use Authorization for Coronavirus Disease-2019 during the Public Health Emergency) issued on September 23, 2019. This test is only authorized for the duration of time the declaration that circumstances exist justifying the authorization of the emergency use of in vitro diagnostic tests for detection of SARS-CoV-2 virus and/or diagnosis of COVID-19 infection under section 564(b)(1) of the Act, 21 U.S.C. 360bbb-3(b)(1), unless the authorization is terminated or revoked sooner. Laboratory - Microbiology an d Antimicrobial susceptibilityon 10-12-2020 SARS-CoV-2 (COVID-19) RNA SUKUMAR+probe Ql (Unsp spec) N/A [facility] Vital Signs Date Time Vital Sign Value Performing Clinician Facility 02-08-2025 14:49-0400 Body height 190.5 cm Crescencio Perez MD Work Phone: [facility] 02-08-2025 14:49-0400 Body mass index (BMI) [Ratio] 33.2 kg/m2 Crescencio Perez MD Work Phone: [facility] 02-08-2025 14:49-0400 Body weight 120.65 kg Crescencio Perez MD Work Phone: [facility] 02-08-2025 14:49-0400 Diastolic blood pressure 77 mm[Hg] Crescencio Perez MD Work Phone: [facility] 02-08-2025 14:49-0400 Heart rate 84 /min Crescencio Perez MD Work Phone: [facility] 02-08-2025 14:49-0400 Systolic blood pressure 144 mm[Hg] Crescencio Perez MD Work Phone: [facility] 12-03-2024 10:33-0400 Body height 188 cm Wolfgang Boggs Jr., MD Work Phone: [facility] 12-03-2024 10:33-0400 Body mass index (BMI) [Ratio] 34.54 kg/m2 Wolfgang Boggs Jr., MD Work Phone: [facility] 12-03-2024 10:33-0400 Body weight 122.02 kg Wolfgang Boggs Jr., MD Work Phone: [facility] 09-30-2024 10:06-0400 Body height 188 cm P[facility] 1 [facility] 09-30-2024 10:06-0400 Body mass index (BMI) [Ratio] 34.54 kg/m2 [facility] 1 [facility] 09-30-2024 10:06-0400 Body weight 122.02 kg [facility] 1 [facility] 09-03-2024 11:59-0400 Body height 185.4 cm Wolfgang Boggs Jr., MD Work Phone: [facility] 09-03-2024 11:59-0400 Body mass index (BMI) [Ratio] 34.96 kg/m2 Wolfgang Boggs Jr., MD Work Phone: [facility] 09-03-2024 11:59-0400 Body weight 120.2 kg Wolfgang Boggs Jr., MD Work Phone: [facility] 09-03-2024 11:59-0400 Diastolic blood pressure 77 mm[Hg] Wolfgang Boggs Jr., MD Work Phone: [facility] 09-03-2024 11:59-0400 Heart rate 75 /min Wolfgang Boggs Jr., MD Work Phone: [facility] 09-03-2024 11:59-0400 Systolic blood pressure 132 mm[Hg] Wolfgang Boggs Jr., MD Work Phone: [facility] 07-02-2024 11:53-0500 Body height 185.4 cm Wolfgang Boggs Jr., MD Work Phone: [facility] 07-02-2024 11:53-0500 Body mass index (BMI) [Ratio] 34.96 kg/m2 Wolfgang Boggs Jr., MD Work Phone: [facility] 07-02-2024 11:53-0500 Body weight 120.2 kg Wolfgang Boggs Jr., MD Work Phone: [facility] 05-05-2024 13:05-0500 Body height 187.96 cm [facility] 05-05-2024 13:05-0500 Body mass index (BMI) [Ratio] 35.2 kg/m2 [facility] 05-05-2024 13:05-0500 Body weight 124.51 kg [facility] 05-05-2024 13:05-0500 Diastolic blood pressure 87 mm[Hg] [facility] 05-05-2024 13:05-0500 Heart rate 84 /min [facility] 05-05-2024 13:05-0500 Systolic blood pressure 155 mm[Hg] [facility] 02-12-2024 11:19-0400 Blood Pressure Location NATALIA KUNZ [facility] 02-12-2024 11:19-0400 Diastolic blood pressure 90 mm[Hg] NATALIA KUNZ [facility] 02-12-2024 11:19-0400 Heart rate 108 /min NATALIA SAMMY [facility] 02-12-2024 11:19-0400 Systolic blood pressure 165 mm[Hg] NATALIA KUNZ [facility] 01-22-2024 15:12-0400 Body height 187.96 cm [facility] 01-22-2024 15:12-0400 Body mass index (BMI) [Ratio] 34 kg/m2 [facility] 01-22-2024 15:12-0400 Body weight 120.2 kg [facility] 01-22-2024 15:12-0400 Diastolic blood pressure 83 mm[Hg] [facility] 01-22-2024 15:12-0400 Heart rate 79 /min [facility] 01-22-2024 15:12-0400 Systolic blood pressure 116 mm[Hg] [facility] 09-25-2023 11:19-0400 Body height 187.96 cm [facility] 09-25-2023 11:19-0400 Body mass index (BMI) [Ratio] 32.1 kg/m2 [facility] 09-25-2023 11:19-0400 Body temperature 97.8 [degF] [facility] 09-25-2023 11:19-0400 Body weight 113.56 kg [facility] 09-25-2023 11:19-0400 Diastolic blood pressure 80 mm[Hg] [facility] 09-25-2023 11:19-0400 Heart rate 79 /min [facility] 09-25-2023 11:19-0400 Systolic blood pressure 133 mm[Hg] [facility] 01-15-2022 08:06-0400 Blood Pressure Location Cookie Estrada Jr. [facility] 01-15-2022 08:06-0400 Diastolic blood pressure 91 mm[Hg] Cookie Estrada Jr. [facility] 01-15-2022 08:06-0400 Heart rate 94 /min Cookie Estrada Jr. [facility] 01-15-2022 08:06-0400 Respiratory rate 16 /min Cookie Estrada Jr. [facility] 01-15-2022 08:06-0400 Systolic blood pressure 160 mm[Hg] Cookie Estrada Jr. [facility] 08-01-2021 16:30-0500 Body height 187.96 cm Humberto Loaiza Other [facility] Other 08-01-2021 16:30-0500 Body mass index (BMI) [Ratio] 33.64 kg/m2 Humberto Loaiza Other [facility] Other 08-01-2021 16:30-0500 Body weight 118.84 kg Humberto Loaiza Other [facility] Other 08-01-2021 16:30-0500 Diastolic blood pressure 78 mm[Hg] Humberto Loaiza Other [facility] Other 08-01-2021 16:30-0500 Systolic blood pressure 124 mm[Hg] Humberto Loazia Other [facility] Other Encounters Encounter Date Encounter Type Care Provider Facility Start: 02-08-2025 End: 02-08-2025 ambulatory Crescencio Perez MD Work Phone: [facility] Work Phone: Start: 02-08-2025 End: 02-08-2025 Patient encounter procedure Crescencio Perez MD [facility] Work Phone: Start: 02-08-2025 End: 02-08-2025 Patient encounter status Crescencio Perez MD [facility] Start: 12-03-2024 End: 12-03-2024 Office outpatient visit 25 minutes Wolfgang Boggs MD Work Phone: [facility] Comment on above: Urologic disorders ( Primary Dx); Benign prostatic hyperplasia with nocturia Start: 12-03-2024 End: 12-03-2024 ambulatory WOLFGANG BOGGS [facility] Start: 11-23-2024 End: 11-23-2024 ambulatory [facility] Work Phone: Start: 11-23-2024 End: 11-23-2024 Patient encounter procedure [facility] Work Phone: Start: 10-01-2024 End: 10-01-2024 Telephone encounter Wolfgang Boggs MD Work Phone: [facility] Start: 10-01-2024 End: 10-01-2024 Evaluation and management of inpatient WOLFGANG BOGGS JR [facility] Start: 09-30-2024 End: 09-30-2024 ambulatory [facility] Pat Phone Call Provider 1 [facility] - Pre Admit Start: 09-30-2024 End: 09-30-2024 ambulatory WOLFGANG BOGGS JR [facility] Start: 09-03-2024 End: 09-03-2024 Telephone encounter Wolf[facility] Boggs MD [facility] Start: 09-03-2024 End: 09-03-2024 Office outpatient visit 25 minutes Wolfgang Boggs MD Work Phone: [facility] Comment on above: Benign prostatic hyp erplasia with lower urinary tract symptoms, symptom details unspecified (Primary Dx); Urologic disorders Start: 09-03-2024 End: 09-03-2024 ambulatory WOLFGANG BOGGS JR [facility] Start: 07-07-2024 End: 07-07-2024 ambulatory WOLFGANG BOGGS JR [facility] Start: 07-02-2024 End: 07-02-2024 Office consultation new/estab patient 40 min Wolfgang Boggs MD Work Phone: [facility] Comment on above: Urologic disorders ( Primary Dx); Benign prostatic hyperplasia with lower urinary tract symptoms, symptom details unspecified Start: 07-02-2024 End: 07-02-2024 ambulatory WOLFGANG BOGGS JR [facility] Start: 05-31-2024 End: 05-31-2024 ambulatory Humberto Loaiza Facility:[facility] Start: 05-05-2024 End: 05-05-2024 ambulatory [facility] Work Phone: Start: 05-05-2024 End: 05-05-2024 Patient encounter procedure [facility] Work Phone: Start: 04-16-2024 End: 04-16-2024 Documentation procedure Wolfgang Boggs MD Work Phone: [facility] Start: 02-26-2024 End: 02-26-2024 ambulatory [facility] Work Phone: Start: 02-26-2024 End: 02-26-2024 Patient encounter procedure [facility] Work Phone: Start: 02-12-2024 End: 02-12-2024 ambulatory NATALIA KUNZ Facility:[facility] Start: 02-12-2024 End: 02-12-2024 Patient encounter procedure NATALIA ACEVESRY [facility] Start: 01-29-2024 Non-patient / Non-visit [facility] Work Phone: Start: 01-22-2024 End: 01-22-2024 ambulatory [facility] Work Phone: Start: 01-22-2024 End: 01-22-2024 Patient encounter procedure [facility] Work Phone: Start: 10-20-2023 End: 10-20-2023 ambulatory [facility] Work Phone: Start: 10-20-2023 End: 10-20-2023 Patient encounter procedure [facility] Work Phone: Start: 10-13-2023 Non-patient / Non-visit [facility] Work Phone: Start: 09-25-2023 End: 09-25-2023 ambulatory [facility] Work Phone: Start: 09-25-2023 End: 09-25-2023 Patient encounter procedure [facility] Work Phone: Start: 02-21-2023 End: 02-21-2023 ambulatory Sukhi Campbell Other [facility] Other Start: 02-21-2023 Nursing evaluation o f patient and report Sukhi Campbell [facility] Start: 02-04-2023 End: 02-04-2023 Patient encounter procedure NATALIA KUNZ [facility] Start: 01-14-2023 End: 01-14-2023 ambulatory Humberto Loaiza Other [facility] Other Start: 01-14-2023 Telephone encounter Humberto Loaiza [facility] Start: 12-05-2022 End: 12-05-2022 ambulatory Crescencio Perez Other [facility] Other Start: 12-05-2022 Telephone encounter Crescencio Perez [facility] Start: 11-26-2022 End: 11-26-2022 ambulatory Crescencio Perez Other [facility] Other Start: 11-26-2022 Nursing evaluation o f patient and report Crescencio Perez [facility] Start: 08-22-2022 End: 08-22-2022 ambulatory Crescencio Perez Other [facility] Other Start: 08-22-2022 Telephone encounter Crescencio Perez [facility] Start: 07-08-2022 End: 07-08-2022 ambulatory Crescencio Perez Other [facility] Other Start: 07-08-2022 Telephone encounter Crescencio KIRAN [facility] Start: 01-16-2022 Adult health examination Humberto Loaiza Other [facility] Other Start: 01-15-2022 End: 01-15-2022 Patient encounter procedure Cookie Estrada Jr. [facility] Start: 01-08-2022 End: 01-09-[address] COOKIE ESTRADA JR Facility:[facility] Start: 12-28-2021 End: 12-28-2021 ambulatory Humberto Loaiza Other [facility] Other Start: 12-28-2021 Telephone encounter Humberto WARD [facility] Start: 12-25-2021 End: 12-25-2021 ambulatory Humberto Loaiza Other [facility] Other Start: 12-25-2021 Telephone encounter Humberto WARD [facility] Start: 08-01-2021 End: 08-01-2021 ambulatory Humberto Loaiza Other [facility] Other Start: 08-01-2021 Patient encounter procedure Humberto Loaiza [facility] Start: 06-12-2021 End: 06-12-[address] CRESCENCIO PEREZ Facility:[facility] Start: 05-01-2021 End: 05-02-[address] CRESCENCIO PEREZ Facility:[facility] Start: 10-12-2020 End: 10-12-2020 Patient encounter procedure Humberto Loaiza Work Phone: -Pre-Surgical Testing Procedures Date Procedure Procedure Detail Performing Clinician Start: 09-03-2024 MEASURE POST VOID RESIDUAL Wolfgang vincent MD Work Phone: Start: 09-03-2024 Follow-up visit Follow-up WOLFGANG BOGGS JR Start: 01-08-[address] COOKIE ESTRADA JR Comment on above: Performed By: #### PSAD #### [facility] [address] [address] [address] Radha Shelton Start: 12-24-2020 Antibody screen Comment on above: Order Comment: Specimen Type: BLOOD SPEC IMEN Performed By: #### T SCR #### [facility] CLIA [id number] 1 [place] [address] Start: 06-29-2018 Cystoscopy Cookie Estrada Jr. Diabetes mellitus screening Humberto Loaiza Other Esophagogastroduoden oscopy gastric outlet reduction Cookie Estrada Jr. Comment on above: opened esophagus Hyperlipidemia screening Cam andrew Fadia Other Prosthetic arthroplasty of the hip Cookie Estrada Jr. Screening for malign ant neoplasm of prostate Humberto Loaiza Other Tonsillectomy Cookie sheffield Plan of Treatment Date Care Activity Detail Author Start: 12-03-2025 Adult BMI Screening Adult BMI Screening [facility] Start: 12-03-2025 Tobacco Screening Tobacco Screening [facility] Start: 10-01-2025 Tobacco Screening Tobacco Screening [facility] Start: 09-30-2025 Adult BMI Screening Adult BMI Screening [facility] Start: 09-03-2025 Adult BMI Screening Adult BMI Screening [facility] Start: 09-03-2025 Tobacco Screening Tobacco Screening [facility] Start: 07-02-2025 Adult BMI Screening Adult BMI Screening [facility] Start: 07-02-2025 Tobacco Screening Tobacco Screening [facility] Start: 03-04-2025 End: 03-04-2025 Patient encounter procedure 03/04/2025 9:15 AM EDT Office Visit [facility] [address] [place] [address] [place] [phone] Wolfgang Boggs Jr., MD [address] [place] [id number] [facility] Start: 02-21-2025 Influenza vaccination Influenza Vaccine [facility] Start: 12-03-2024 End: 12-03-2024 Patient encounter procedure 12/03/2024 10:15 AM EDT Office Visit [facility] [address] [place] [phone] Wolfgang Boggs Jr., MD [address] [place] [id number] [facility] Start: 10-01-2024 End: 10-01-2024 Cystourethroscopy CYSTOSCOPY Benign prostatic hyperplasia with lower urinary tract symptoms, symptom details unspecified 10/01/2024 1:15 PM EDT [facility] Start: 09-03-2024 End: 09-03-2024 Patient encounter procedure 09/03/2024 11:15 AM EDT Office Visit [facility] [address] [place] [phone] Wolfgang Boggs Jr., MD [address] [place] [phone] [facility] Start: 07-02-2024 End: 07-02-2025 Prostatic specific antigen, diagnostic Prostatic specific antigen, diagnostic Lab Routine Benign prostatic hyperplasia with lower urinary tract symptoms, symptom details unspecified Expected: 07/02/2024 (Approximate), Expires: 07/02/2025 [facility] Comment on above: Expected: 07/02/2024 (Approximate), Expi res: 07/02/2025 Start: 07-02-2024 End: 07-02-2025 Uroflowmetry Uroflowmetry Procedure Routine Benign prostatic hyperplasia with lower urinary tract symptoms, symptom details unspecified Expected: 07/02/2024 (Approximate), Expires: 07/02/2025 [facility] Comment on above: Expected: 07/02/2024 (Approximate), Expi res: 07/02/2025 Start: 07-02-2024 End: 07-02-2025 US Retroperitoneum Ultrasound retroperitoneal complete Imaging Routine Benign prostatic hyperplasia with lower urinary tract symptoms, symptom details unspecified Expected: 07/02/2024, Expires: 07/02/2025 [facility] Work Phone: Comment on above: Expected: 07/02/2024, Expires: Start: 07-02-2024 End: 07-02-2024 Patient encounter procedure 07/02/2024 11:00 AM EST Office Visit [facility] [address] [place] [address] [place] [phone] Wolfgang Boggs Jr., MD [address] [place] [address] [facility] Start: 02-22-2024 Influenza vaccination Influenza Vaccine [facility] Start: 09-25-2023 Patient referral [facility] Work Phone: Start: 2016 Administration of varicella zoster vaccine Zoster (Shingles) Vaccine (1 of 2) [facility] Start: 1985 DTaP,Tdap and Td Vaccines (1 - Tdap) DTaP,Tdap and Td Vaccines (1 - Tdap) [facility] Start: 1984 Adult BMI Follow Up Plan Adult BMI Follow Up Plan [facility] Start: 1984 Adult BMI Screening Adult BMI Screening [facility] Start: 1978 Depression Screening Depression Screening [facility] Start: 1978 Tobacco Screening Tobacco Screening [facility] Start: 1966 Tobacco Counseling Tobacco Counseling [facility] Comprehensive metabo lic 2000 panel - Serum or Plasma [facility] Patient referral [facility] Work Phone: [facility] Immunizations Immunization Date Immunization Notes Care Provider Fa cility 04-19-2018 influenza virus vaccine, split virus (incl. purified surface antigen) Humberto Loaiza Other [facility] Other 04-19-2018 influenza virus vaccine, unspecified formulation [facility] 04-21-2015 tetanus and diphther ia toxoids, adsorbed, preservative free, for adult use (5 Lf of tetanus toxoid and 2 Lf of diphtheria toxoid) Humberto Loaiza Other [facility] Payers Date Payer Category Payer Self-pay [id number] 2020 Managed Care Other (unspecified) [id number] 2019 Unknown [id number] [id number] 1966 Unknown [id number] 1966 Unknown [id number] [id number] 1966 Unknown [id number] [id number] 1966 Unknown [id number] [id number] 1966 Unknown [id number] [id number] 1966 Unknown [id number] [id number] 1966 Unknown [id number] [id number] 1966 Unknown [id number] [id number] 1966 Unknown [id number] [id number] 1966 Unknown [id number] [id number] 1966 Unknown [id number] [id number] 1966 Unknown [id number] [id number] 1959 Unknown [id number] Private Health Insurance [id number] Unknown [facility] [id number] Unknown [id number] Social History Date Type Detail Facility Tobacco smoking stat [facility] Unknown if ever smoked [facility] Start: 1965 Sex Assigned At Male [facility] Start: 08-03-2020 End: 07-02-2024 Sex Assigned At [facility] Other Start: 01-15-2022 End: 02-12-2024 Tobacco smoking status Ex-smoker (finding) [facility] Tobacco smoking status Smokeless tobacco user within last 30 days [facility] Start: 11-27-2020 End: 05-31-2024 Tobacco smoking status NHIS Smoker (finding) [facility] Start: 05-05-2024 End: 11-23-2024 Sex Male (finding) [facility] Start: 03-15-2019 End: 05-31-2024 Tobacco smoking status SDIS Smokes tobacco daily [facility] Start: 03-15-2019 End: 09-30-2024 Tobacco use and exposure User of smokeless tobacco [facility] History of tobacco use Chews Tobacco [facility] Start: 07-03-2024 End: 12-03-2024 Alcoholic beverage intake Current drinker of alcohol (finding) [facility] Start: 08-03-2020 End: 07-03-2024 Alcoholic beverage intake [facility] Start: 03-15-2019 Alcohol Comment 6 beers a week [facility] Start: 1965 Sex assigned at Not on file P [facility] Start: 09-30-2024 Tobacco smoking stat RUSTIS Never smoked tobacco [facility] Goals Date Patient Goal Desired Activity /State Functional Status Date Assessment Result Facility 02-12-2024 Functional Status N/A [facility] 02-04-2023 Functional Status N/A [facility] 01-15-2022 Functional Status N/A [facility] Clinical Notes 03-09-2015 to 12-03-2024 Wolfgang Boggs Jr., MD - 12/03/2024 10:15 AM EDTTelephone Encounter - Wolfgang Boggs Jr., MD - 10/01/2024 1:41 PM EDTTelephone Encounter - Wolfgang Boggs Jr., MD - 10/01/2024 1:41 PM EDT Note Date & Type Note Facility 12-03-2024 History of Present illness Narrative Images from the original note were not included. [address] [place] [phone] Patient: Dominic Yu Date of : 1965 Encounter Date: 12/03/2024 History of Present Illness: Chief Complaint: Chief complaint benign prostatic hyperplasia. See below Urinalysis today: No results for input(s): EXTPOCURCO , EXTPOCURCH , EXTPOCAPP , EXTPOCURBS , EXTPOCURBIL , EXTPOCUKET , EXTPOCUSPG , EXTPOCUHGB , EXTPOCUPRO , EXTPOCUURO , EXTPOCULEU , EXTPOCUNIT , EXTPOCUWBC , EXTPOCUBLD , EXTPOCURBC , EXTPOCUCRY , EXTPOCUBAC , EXTPOCUTREP , EXTPOCUPH , EXTPOCULEE in the last 72 hours. Last BUN and creatinine: No results found for: BUN No results found for: CREATININE Last PSA: Lab Results Component Value Date PSA 1.92 07/07/2024 No results found for: PROSTATICSP Past Medical, Family, and Social History Update: The following portions of the patient's history were reviewed and updated as appropriate: allergies, current medications, past family history, past medical history, past social history, past surgical history and problem list. Past Medical History: Diagnosis Date Polanco's esophagus GERD (gastroesophageal reflux disease) Hypertension Mood disorder Multiple food allergies Sleep apnea cpap Visual impairment Past Surgical History: Procedure Laterality Date ANKLE SURGERY Left CYSTOSCOPY N/A 10/01/2024 Performed by Wolfgang Boggs Jr., MD at [facility] TONSILLECTOMY TOTAL HIP ARTHROPLASTY Left History reviewed. No pertinent family history. Current Outpatient Medications Medication Sig Dispense Refill aspirin 81 mg Take 1 tablet (81 mg total) by mouth in the morning. cetirizine (ZyrTEC) 10 mg tablet Take 1 tablet (10 mg total) by mouth as needed. FLUoxetine (PROzac) 20 mg capsule Take 1 capsule (20 mg total) by mouth in the morning. lamoTRIgine (LaMICtal) 150 mg tablet Take 1 tablet (150 mg total) by mouth in the morning. losartan (COZAAR) 25 mg tablet Take 1 tablet (25 mg total) by mouth in the morning. 3 metoprolol succinate XL (TOPROL XL) 25 mg 24 hr tablet Take 1 tablet (25 mg total) by mouth in the morning. omeprazole (PriLOSEC) 40 mg capsule Take 1 capsule (40 mg total) by mouth every morning before breakfast. tamsulosin (FLOMAX) 0.4 mg capsule Take 2 capsules (0.8 mg total) by mouth nightly. 180 capsule 3 therapeutic multivitamin (THERAGRAN) tablet Take 1 tablet by mouth in the morning. vitamins A,C,F-qsst-wrcahw (HEALTHY EYES SUPERVISION) [id number] byni-xm-qpnn capsule Take 1 capsule by mouth in the morning and 1 capsule before bedtime. tadalafiL (CIALIS) 5 mg tablet Take 1 tablet (5 mg total) by mouth in the morning. 90 tablet 3 No current facility-administered medications for this visit. (All medications reviewed and updated by provider since last office visit or hospitalization) Allergies: Patient has no known allergies. Tobacco History: Social History Tobacco Use Smoking Status Never Smokeless Tobacco Current Types: Chew (If patient a smoker, smoking cessation counseling offered) Social History: Social History Substance and Sexual Activity Alcohol Use Yes Alcohol/week: 6.0 standard drinks of alcohol Types: 6 Cans of beer per week Comment: 6 beers a week Review of Systems: General: Negative for chills and fever. Cardiovascular: Negative for chest pain and shortness of breath. Gastrointestinal: Negative for constipation, diarrhea, nausea, and vomitting. -per HPI Physical Exam: Ht 188 cm (6' 2 ) Wt 122 kg (269 lb) BMI 34.54 kg/m Alert, pleasant, without signs of acute illness, and in no distress. Respirations unlabored . Skin dry on examination now. Assessment and Plan: Dominic was seen today for follow-up. Diagnoses and all orders for this visit: Urologic disorders Benign prostatic hyperplasia with nocturia Other orders - tadalafiL (CIALIS) 5 mg tablet; Take 1 tablet (5 mg total) by mouth in the morning. Problem List Unprioritized Urologic disorders - Primary Overview 1. 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 Estrada urologist [facility] Flomax 0.4 mg daily also with [...] Right simple renal cyst retroperitoneal ultrasound 07/07/2024 Benign prostatic hyperplasia with lower urinary tract symptoms Follow-up: Patient returns now more pleased with his voiding in follow-up of his benign prostatic hyperplasia with increase of his Flomax to 0.8 mg. We will continue with that. We again reviewed his very normal PSA. We also discussed his ED in addition to the benign prostatic hyperplasia. By mutual agreement we will add Cialis 5 mg daily for benign prostatic hyperplasia. That could be increased if needed for sex, which we did discuss. Emergency nature of erections lasting 4 hours or more was reviewed. The patient was advised to contact our office or present emergently to the emergency department. Return otherwise 3 months. I requested he see if he can get his metoprolol discontinued, as beta-blockers certainly cause ED. We can discuss smoking discontinuation and complete IPSS as well eventually. Thank you very much. I appreciate being asked to help with this patient's care. Urology service is the sole provider for the patient's ongoing management of benign prostatic hyperplasia, which is a chronic condition requiring ongoing follow-up. WOLFGANG BOGGS JR, MD This note was created with the assistance of a speech recognition program. While intending to generate a timely document that accurately reflects the content of the visit, no guarantee can be provided that every grammatical or spelling mistake has been or will be identified or corrected. Thank you for your understanding. documented in this encounter [facility] 10-01-2024 Miscellaneous Notes Make appointment for patient 2 months follow up benign prostatic hyperplasia with obstruction. Need cystoscopy report October 01, 2024 documented in this encounter [facility] 10-01-2024 Telephone encounter Note Make appointment for patient 2 months follow up benign prostatic hyperplasia with obstruction. Need cystoscopy report [facility] 01, [facility] Nurse Note Preoperative Education Checklist- General Surgery date: 10/01/24 Surgery time: 1p Arrival time: 12p 1. Bring a photo ID and your insurance card with you the day of surgery. You will check in at the main lobby of the [facility]- registration desk is straight ahead as soon as you walk in. Tell them you are here for surgery. 2. If you have a Living Will/Durable Power of Global Manager for Health Care that is not on file here, please bring a copy the day of surgery. 3. Please shower/bathe the night before surgery with the provided soap or wipes. Do not shower the morning of surgery- you will do use wipes when you arrive here at the hospital before getting into your surgical gown. Do not shave the area of your procedure for 2 days prior to your surgery. 4. NO powder, lotion, perfume/cologne, aftershave, make-up, deodorant, or hair products after you have bathed. 5. NO nail citizen of [place]/acrylic on at least one finger. If you are having a hand, wrist or foot surgery then all nail citizen of [place] and artificial/acrylic nails must be removed from that hand or foot. 6. Avoid ALL Aspirin and non-steroidal anti-inflammatory drugs and certain vitamins (Ibuprofen, Advil, Aleve, Excedrin, Meloxicam, Celebrex, fish/krill oil, etc.) for 7 days prior to surgery as instructed by your surgeon and/or your prescribing doctor. Tylenol IS ALLOWED. If you are on Ticlid, Xarelto, Eliquis, Pradaxa, Plavix or Coumadin, please check with your prescribing doctor for instructions for when to stop them. 7. If you use an inhaler, continue to use it routinely. 8. Nothing to eat or drink (not even water, gum, mints, or hard candy!) AFTER midnight prior to your surgery. 9. Take only medications that you are instructed to on the morning of surgery with a TINY SIP OF WATER. 10. Choose a responsible adult that will be able to drive you home when you are discharged from your hospital stay for your surgery and can stay with you in your home for 24 hours after your procedure. You must NOT drive any vehicle or operate any machinery for 24 hours after surgery. 11. When you dress for your appointment, please wear loose fitting clothing that is appropriate to accommodate your surgical area procedure. BRING WITH YOU ANY DEVICES YOU MAY NEED: PREMA hose, ice machine, sling/swath, brace or special shoe, oversized zip-up or button up shirt, CPAP machine if staying overnight. 12. Do NOT wear jewelry, watches, or any piercings or metal for surgery- leave these valuables and money at home. 13. Do NOT wear contact lenses for surgery- glasses are okay if needed. 14. The anesthesiologist will talk with you the day of surgery and will ask you to sign a Consent Form. 15. Refrain from smoking or any type of tobacco use for at least 8 hours and marijuana for 24 hours prior to arrival for your surgery. 16. If a GREEN BLOOD band is given to you, please bring it with you for the day of surgery. 17. Notify your surgeon if you develop any illness before your surgery. 18. If you are staying overnight, please DO NOT BRING your home medications with you. 19. If you have any questions prior to surgery, please call the Preadmission Testing office at [phone], Mon.-Fri. 7 a.m.-3 p.m. Leave a voicemail if needed. Pre-Surgery Instructions: Medication Instructions aspirin 81 mg Per Surgeon's instructions cetirizine (ZyrTEC) 10 mg tablet Continue as prescribed, DO NOT take morning of procedure FLUoxetine (PROzac) 20 mg capsule Continue as prescribed, DO NOT take morning of procedure lamoTRIgine (LaMICtal) 150 mg tablet Continue as prescribed, take morning of procedure losartan (COZAAR) 25 mg tablet Continue as prescribed, take morning of procedure omeprazole (PriLOSEC) 40 mg capsule Continue as prescribed, take morning of procedure tamsulosin (FLOMAX) 0.4 mg capsule Continue as prescribed, take morning of procedure therapeutic multivitamin (THERAGRAN) tablet Continue as prescribed, DO NOT take morning of procedure vitamins A,C,Z-xwqf-xzjash (HEALTHY EYES SUPERVISION) [id number] fsbu-jh-xdug capsule Continue as prescribed, DO NOT take morning of procedure [facility] 09-30-2024 Miscellaneous Notes Preoperative Education Checklist- General Surgery date: 10/01/24 Surgery time: 1p Arrival time: 12p 1. Bring a photo ID and your insurance card with you the day of surgery. You will check in at the main lobby of the [facility]- registration desk is straight ahead as soon as you walk in. Tell them you are here for surgery. 2. If you have a Living Will/Durable Power of Global Manager for Health Care that is not on file here, please bring a copy the day of surgery. 3. Please shower/bathe the night before surgery with the provided soap or wipes. Do not shower the morning of surgery- you will do use wipes when you arrive here at the hospital before getting into your surgical gown. Do not shave the area of your procedure for 2 days prior to your surgery. 4. NO powder, lotion, perfume/cologne, aftershave, make-up, deodorant, or hair products after you have bathed. 5. NO nail citizen of [place]/acrylic on at least one finger. If you are having a hand, wrist or foot surgery then all nail citizen of [place] and artificial/acrylic nails must be removed from that hand or foot. 6. Avoid ALL Aspirin and non-steroidal anti-inflammatory drugs and certain vitamins (Ibuprofen, Advil, Aleve, Excedrin, Meloxicam, Celebrex, fish/krill oil, etc.) for 7 days prior to surgery as instructed by your surgeon and/or your prescribing doctor. Tylenol IS ALLOWED. If you are on Ticlid, Xarelto, Eliquis, Pradaxa, Plavix or Coumadin, please check with your prescribing doctor for instructions for when to stop them. 7. If you use an inhaler, continue to use it routinely. 8. Nothing to eat or drink (not even water, gum, mints, or hard candy!) AFTER midnight prior to your surgery. 9. Take only medications that you are instructed to on the morning of surgery with a TINY SIP OF WATER. 10. Choose a responsible adult that will be able to drive you home when you are discharged from your hospital stay for your surgery and can stay with you in your home for 24 hours after your procedure. You must NOT drive any vehicle or operate any machinery for 24 hours after surgery. 11. When you dress for your appointment, please wear loose fitting clothing that is appropriate to accommodate your surgical area procedure. BRING WITH YOU ANY DEVICES YOU MAY NEED: PREMA hose, ice machine, sling/swath, brace or special shoe, oversized zip-up or button up shirt, CPAP machine if staying overnight. 12. Do NOT wear jewelry, watches, or any piercings or metal for surgery- leave these valuables and money at home. 13. Do NOT wear contact lenses for surgery- glasses are okay if needed. 14. The anesthesiologist will talk with you the day of surgery and will ask you to sign a Consent Form. 15. Refrain from smoking or any type of tobacco use for at least 8 hours and marijuana for 24 hours prior to arrival for your surgery. 16. If a GREEN BLOOD band is given to you, please bring it with you for the day of surgery. 17. Notify your surgeon if you develop any illness before your surgery. 18. If you are staying overnight, please DO NOT BRING your home medications with you. 19. If you have any questions prior to surgery, please call the Pread[facility] Testing office at [phone], Mon.-Fri. 7 a.m.-3 p.m. Leave a voicemail if needed. Pre-Surgery Instructions: Medication Instructions aspirin 81 mg Per Surgeon's instructions cetirizine (ZyrTEC) 10 mg tablet Continue as prescribed, DO NOT take morning of procedure FLUoxetine (PROzac) 20 mg capsule Continue as prescribed, DO NOT take morning of procedure lamoTRIgine (LaMICtal) 150 mg tablet Continue as prescribed, take morning of procedure losartan (COZAAR) 25 mg tablet Continue as prescribed, take morning of procedure omeprazole (PriLOSEC) 40 mg capsule Continue as prescribed, take morning of procedure tamsulosin (FLOMAX) 0.4 mg capsule Continue as prescribed, take morning of procedure therapeutic multivitamin (THERAGRAN) tablet Continue as prescribed, DO NOT take morning of procedure vitamins A,C,K-wnhk-idkvjw (HEALTHY EYES SUPERVISION) [id number] sjmm-vx-bszq capsule Continue as prescribed, DO NOT take morning of procedure documented in this encounter [facility] 09-03-2024 Miscellaneous Notes Benign prostatic hyperplasia with difficulty voiding-cystoscopy, local, ASA P [place] 30 minutes documented in this encounter [facility] 09-03-2024 Telephone encounter Note Benign prostatic hyperplasia with difficulty voiding-cystoscopy, local, ASA P [place] 30 minutes [facility] 09-03-2024 History of Present illness Narrative Images from the original note were not included. [id number] [place] [address] [facility] [id number] Patient: Dominic Yu Date of : 1965 Encounter Date: 09/03/2024 History of Present Illness: Chief Complaint: Benign prostatic hyperplasia with lower tract symptoms. See below Urinalysis today: No results for input(s): EXTPOCURCO , EXTPOCURCH , EXTPOCAPP , EXTPOCURBS , EXTPOCURBIL , EXTPOCUKET , EXTPOCUSPG , EXTPOCUHGB , EXTPOCUPRO , EXTPOCUURO , EXTPOCULEU , EXTPOCUNIT , EXTPOCUWBC , EXTPOCUBLD , EXTPOCURBC , EXTPOCUCRY , EXTPOCUBAC , EXTPOCUTREP , EXTPOCUPH , EXTPOCULEE in the last 72 hours. Last BUN and creatinine: No results found for: BUN No results found for: CREATININE Last PSA: Lab Results Component Value Date PSA 1.92 07/07/2024 No results found for: PROSTATICSP Past Medical, Family, and Social History Update: The following portions of the patient's history were reviewed and updated as appropriate: allergies, current medications, past family history, past medical history, past social history, past surgical history and problem list. Past Medical History: Diagnosis Date Polanco's esophagus GERD (gastroesophageal reflux disease) Hypertension Mood disorder ([facility]) Multiple food allergies Sleep apnea Past Surgical History: Procedure Laterality Date ANKLE SURGERY Left TONSILLECTOMY TOTAL HIP ARTHROPLASTY Left History reviewed. No pertinent family history. Current Outpatient Medications Medication Sig Dispense Refill aspirin 81 mg Take 1 tablet (81 mg total) by mouth in the morning. cetirizine (ZyrTEC) 10 mg tablet Take 1 tablet (10 mg total) by mouth in the morning. FLUoxetine (PROzac) 20 mg capsule Take 1 capsule (20 mg total) by mouth in the morning. lamoTRIgine (LaMICtal) 150 mg tablet Take 1 tablet (150 mg total) by mouth in the morning. losartan (COZAAR) 25 mg tablet Take 1 tablet (25 mg total) by mouth in the morning. 3 omeprazole (PriLOSEC) 40 mg capsule Take 1 capsule (40 mg total) by mouth every morning before breakfast. therapeutic multivitamin (THERAGRAN) tablet Take 1 tablet by mouth in the morning. vitamins A,C,O-jvlf-quoxve (HEALTHY EYES SUPERVISION) [id number] ilty-aw-rsjk capsule Take 1 capsule by mouth in the morning and 1 capsule before bedtime. tamsulosin (FLOMAX) 0.4 mg capsule Take 2 capsules (0.8 mg total) by mouth nightly. 180 capsule 3 No current facility-administered medications for this visit. (All medications reviewed and updated by provider since last office visit or hospitalization) Allergies: Other Tobacco History: Social History Tobacco Use Smoking Status Every Day Smokeless Tobacco Current Types: Chew (If patient a smoker, smoking cessation counseling offered) Social History: Social History Substance and Sexual Activity Alcohol Use Yes Alcohol/week: 6.0 standard drinks of alcohol Types: 6 Cans of beer per week Comment: 6 beers a week Review of Systems: General: Negative for chills and fever. Cardiovascular: Negative for chest pain and shortness of breath. Gastrointestinal: Negative for constipation, diarrhea, nausea, and vomitting. -per HPI Physical Exam: BP 132/77 Pulse 75 Ht 185.4 cm (6' 1 ) Wt 120.2 kg (265 lb) BMI 34.96 kg/m Alert, pleasant, without signs of acute illness, and in no distress. Respirations unlabored . Skin dry on examination now. Assessment and Plan: Dominic was seen today for follow-up. Diagnoses and all orders for this visit: Benign prostatic hyperplasia with lower urinary tract symptoms, symptom details unspecified - Measure post void residual - Cancel: POCT Urinalysis Auto, W/O Microscopy Urologic disorders Other orders - tamsulosin (FLOMAX) 0.4 mg capsule; Take 2 capsules (0.8 mg total) by mouth nightly. Problem List Unprioritized Urologic disorders Overview 1. Mood disorder with benign prostatic hyperplasia with postvoid dribble, very weak stream, intermittency, and sensation incomplete emptying without incontinence otherwise or nocturia, managed by Dr. Estrada urologist [facility] Flomax 0.4 mg daily also with [...] Right simple renal cyst retroperitoneal ultrasound 07/07/2024 Benign prostatic hyperplasia with lower urinary tract symptoms - Primary Relevant Orders Measure post void residual (Completed) Follow-up: Patient returns with no new complaint in follow-up of his benign prostatic hyperplasia. Flow test showed very low voided volume but very low flow rate and residual thankfully just 16 mL. I provided independent interpretation of films and reports of retroperitoneal ultrasound showing I agree solitary simple right renal cyst otherwise normal kidneys and bladder as well as obviously benign prostatic hyperplasia. With patient still having symptoms, I prescribed increasing his Flomax to 0.8 mg nightly with caution regarding dizziness. I described and advised scheduling a cystoscopy for further evaluation of his voiding symptoms and discussed risks of bleeding, pain, infection, urinary retention, and alternative of nonintervention. Patient/family's questions were answered. Eventually complete IPSS. Then further address ED. we can discuss smoking discontinuation subsequently as well. Thank you very much. I appreciate being asked to help with this patient's care.... WOLFGANG BOGGS JR, MD This note was created with the assistance of a speech recognition program. While intending to generate a timely document that accurately reflects the content of the visit, no guarantee can be provided that every grammatical or spelling mistake has been or will be identified or corrected. Thank you for your understanding. documented in this encounter [facility] 07-02-2024 History of Present illness Narrative Images from the original note were not included. [id number] [place] [address] [facility] [id number] Patient: Dominic Yu Date of : 1965 Encounter Date: 07/02/2024 History of Present Illness: Chief Complaint: Request 2nd opinion regarding benign prostatic hyperplasia and ED. see below The patient is a 58 y.o. male, a new patient, and is here for 2nd opinion regarding treatment of benign prostatic hyperplasia and ED. Notes his established urologist Dr. Estrada retired, and he was not satisfied with replacement there and is seeking 2nd opinion. Notes he has been on Flomax for benign prostatic hyperplasia for about 3 years. No history of stones, gross hematuria, or documented UTIs or other urology evaluation. Status post circumcision with no personal or family history of bleeding diathesis. Has incomplete emptying, intermittency, and postvoid dribble otherwise without incontinence or nocturia. Very weak stream. No dysuria. Normal bowel movements. with 3 children and failed Viagra 100 mg and had heart palpitations and racing with it.. Urinalysis today: No results for input(s): EXTPOCURCO , EXTPOCURCH , EXTPOCAPP , EXTPOCURBS , EXTPOCURBIL , EXTPOCUKET , EXTPOCUSPG , EXTPOCUHGB , EXTPOCUPRO , EXTPOCUURO , EXTPOCULEU , EXTPOCUNIT , EXTPOCUWBC , EXTPOCUBLD , EXTPOCURBC , EXTPOCUCRY , EXTPOCUBAC , EXTPOCUTREP , EXTPOCUPH , EXTPOCULEE in the last 72 hours. Last BUN and creatinine: No results found for: BUN No results found for: CREATININE Last PSA: No results found for: PSA No results found for: PROSTATICSP Past Medical, Family, and Social History Update: The following portions of the patient's history were reviewed and updated as appropriate: allergies, current medications, past family history, past medical history, past social history, past surgical history and problem list. Past Medical History: Diagnosis Date Polanco's esophagus GERD (gastroesophageal reflux disease) Hypertension Mood disorder ([facility]) Multiple food allergies Sleep apnea Past Surgical History: Procedure Laterality Date ANKLE SURGERY Left TONSILLECTOMY TOTAL HIP ARTHROPLASTY Left History reviewed. No pertinent family history. Current Outpatient Medications Medication Sig Dispense Refill aspirin 81 mg Take 1 tablet (81 mg total) by mouth in the morning. cetirizine (ZyrTEC) 10 mg tablet Take 1 tablet (10 mg total) by mouth in the morning. FLUoxetine (PROzac) 20 mg capsule Take 1 capsule (20 mg total) by mouth in the morning. lamoTRIgine (LaMICtal) 150 mg tablet Take 1 tablet (150 mg total) by mouth in the morning. losartan (COZAAR) 25 mg tablet Take 1 tablet (25 mg total) by mouth in the morning. 3 omeprazole (PriLOSEC) 40 mg capsule Take 1 capsule (40 mg total) by mouth every morning before breakfast. tamsulosin (FLOMAX) 0.4 mg capsule Take 1 capsule (0.4 mg total) by mouth in the morning. therapeutic multivitamin (THERAGRAN) tablet Take 1 tablet by mouth in the morning. vitamins A,C,H-tcde-svhork (HEALTHY EYES SUPERVISION) [id number] ujua-uq-ewqv capsule Take 1 capsule by mouth in the morning and 1 capsule before bedtime. No current facility-administered medications for this visit. (All medications reviewed and updated by provider since last office visit or hospitalization) Allergies: Other Tobacco History: Social History Tobacco Use Smoking Status Every Day Smokeless Tobacco Current Types: Chew (If patient a smoker, smoking cessation counseling offered) Social History: Social History Substance and Sexual Activity Alcohol Use Yes Alcohol/week: 6.0 standard drinks of alcohol Types: 6 Cans of beer per week Comment: 6 beers a week Review of Systems: Constitutional: Normal activity and energy. Patient denies change in appetite, weight loss or gain, malaise (depression), chills, fever, or diaphoresis (sweating). Eyes: Patient denies vision changes or diplopia (double vision). Ears, Nose, Nose and Throat: Patient denies tinnitus (ringing in ears), hearing loss, epistaxis (nose bleed), hoarseness, and dysphagia (hard to swallow). Respiratory: Patient denies dyspnea (shortness of breath), cough, hemotypsis (blood in sputum), and wheezing. Cardiovascular: Patient denies chest pain, palpitations, and shortness of breath. Gastrointestinal: Patient denies abdominal pain, nausea, vomiting, bloating, diarrhea (chronic), constipation (chronic), melena (black stool), hematochezia (blood in stool). Musculoskeletal: Joint pain/stiffness Neurologic: Patient denies weakness, dizziness, loss of consciousness, transient ischemic symptoms, and seizures. Integument: Patient denies rashes and non-healing lesions. Psychiatric: Patient denies increased nervousness, mood changes, or depression. Endocrine: Patient denies thyroid trouble, heat or cold intolerance, diabetes, excessive thirst, hunger, and excessive urination. Blood Disorders: Patient denies anemia, easy bruising, and easy bleeding. Physical Exam: Ht 185.4 cm (6' 1 ) Wt 120.2 kg (265 lb) BMI 34.96 kg/m Alert, pleasant, without signs of acute illness, and in no distress. Respirations unlabored . Skin dry on examination now. No flank or abdominal masses or tenderness. Penis circumcised without mass lesion or discharge. Testicles descended bilaterally without mass or tenderness. Left varicocele. Prostate 40 g nontender nonnodular Assessment and Plan: Dominic was seen today for benign prostatic hypertrophy. Diagnoses and all orders for this visit: Urologic disorders Benign prostatic hyperplasia with lower urinary tract symptoms, symptom details unspecified - [facility] - Ultrasound retroperitoneal complete; Future - Prostatic specific antigen, diagnostic; Future - Uroflowmetry; Future Problem List Unprioritized Urologic disorders - Primary Overview 1. Mood disorder with benign prostatic hyperplasia with postvoid dribble, very weak stream, intermittency, and sensation incomplete emptying without incontinence otherwise or nocturia, managed by Dr. Estrada urologist [facility] Flomax 0.4 mg daily also with use of hyoscyamine 0.125 mg 3 times daily p.r.n. and metoprolol 2. with children ED, hypertension, smoking complicated by heart racing with Viagra and failure Viagra with prior urologist 3. Intolerance Viagra secondary to arrhythmias 3. with children with left varicocele Benign prostatic hyperplasia with lower urinary tract symptoms Relevant Orders Ultrasound retroperitoneal complete Prostatic specific antigen, diagnostic Uroflowmetry Follow-up: I reviewed the followin. Primary care provider note 01/22/2024 regarding benign prostatic hyperplasia, and also sleep apnea 2. CBC unremarkable 12/25/2020 3. Same date serum creatinine 0.87 4. Referral 03/03/2024 benign prostatic hyperplasia with lower tract symptoms Today I formally discontinued his Viagra. Continue Flomax 0.4 mg nightly. Return with retroperitoneal ultrasound, uroflow, postvoid residual, and IPSS in 1 month. Then plan diagnostic cystoscopy. Then further address ED. also plan discussion regarding discontinuation of smoking. Thank you very much. I appreciate being asked to help with this patient's care. WOLFGANG BOGGS JR, MD This note was created with the assistance of a speech recognition program. While intending to generate a timely document that accurately reflects the content of the visit, no guarantee can be provided that every grammatical or spelling mistake has been or will be identified or corrected. Thank you for your understanding. [facility] History of Present illness Narrative Patient rescheduled today's initial office appointment. I reviewed the followin. Referral 03/03/2024 benign prostatic hyperplasia with lower tract symptoms 2. Unremarkable CBC 12/25/2020 3. Same date creatinine 0.87 See urologic disorders [facility] + Plan note Diagnostic Tests PendingPSA Total 02/12/24 [facility] 02-12-2024 Hospital Discharge instructions Patient Education 02/12/2024 11:04:44 Erectile Dysfunction Erectile Dysfunction Erectile dysfunction (ED) is the inability to get or keep an erection in order to have sexual intercourse. ED is considered a symptom of an underlying disorder and is not considered a disease. ED may include: Inability to get an erection. Lack of enough hardness of the erection to allow penetration. Loss of erection before sex is finished. What are the causes? This condition may be caused by: Physical causes, such as: ?Artery problems. This may include heart disease, high blood pressure, atherosclerosis, and diabetes. ?Hormonal problems, such as low testosterone. ?Obesity. ?Nerve problems. This may include back or pelvic injuries, multiple sclerosis, Parkinson's disease, spinal cord injury, and stroke. Certain medicines, such as: ?Pain relievers. ?Antidepressants. ?Blood pressure medicines and water pills (diuretics). ?Cancer medicines. ?Antihistamines. ?Muscle relaxants. Lifestyle factors, such as: ?Use of drugs such as marijuana, cocaine, or opioids. ?Excessive use of alcohol. ?Smoking. ?Lack of physical activity or exercise. Psychological causes, such as: ?Anxiety or stress. ?Sadness or depression. ?Exhaustion. ?Fear about sexual performance. ?Guilt. What are the signs or symptoms? Symptoms of this condition include: Inability to get an erection. Lack of enough hardness of the erection to allow penetration. Loss of the erection before sex is finished. Sometimes having normal erections, but with frequent unsatisfactory episodes. Low sexual satisfaction in either partner due to erection problems. A curved penis occurring with erection. The curve may cause pain, or the penis may be too curved to allow for intercourse. Never having nighttime or morning erections. How is this diagnosed? This condition is often diagnosed by: Performing a physical exam to find other diseases or specific problems with the penis. Asking you detailed questions about the problem. Doing tests, such as: ?Blood tests to check for diabetes mellitus or high cholesterol, or to measure hormone levels. ?Other tests to check for underlying health conditions. ?An ultrasound exam to check for scarring. ?A test to check blood flow to the penis. Doing a sleep study at home to measure nighttime erections. How is this treated? This condition may be treated by: Medicines, such as: ?Medicine taken by mouth to help you achieve an erection (oral medicine). ?Hormone replacement therapy to replace low testosterone levels. ?Medicine that is injected into the penis. Your health care provider may instruct you how to give yourself these injections at home. ?Medicine that is delivered with a short applicator tube. The tube is inserted into the opening at the tip of the penis, which is the opening of the urethra. A tiny pellet of medicine is put in the urethra. The pellet dissolves and enhances erectile function. This is also called MUSE (medicated urethral system for erections) therapy. Vacuum pump. This is a pump with a ring on it. The pump and ring are placed on the penis and used to create pressure that helps the penis become erect. Penile implant surgery. In this procedure, you may receive: ?An inflatable implant. This consists of cylinders, a pump, and a reservoir. The cylinders can be inflated with a fluid that helps to create an erection, and they can be deflated after intercourse. ?A semi-rigid implant. This consists of two silicone rubber rods. The rods provide some rigidity. They are also flexible, so the penis can both curve downward in its normal position and become straight for sexual intercourse. Blood vessel surgery to improve blood flow to the penis. During this procedure, a blood vessel from a different part of the body is placed into the penis to allow blood to flow around (bypass) damaged or blocked blood vessels. Lifestyle changes, such as exercising more, losing weight, and quitting smoking. Follow these instructions at home: Medicines Take xeul-poq-kakuxme and prescription medicines only as told by your health care provider. Do not increase the dosage without first discussing it with your health care provider. If you are using self-injections, do injections as directed by your health care provider. Make sure you avoid any veins that are on the surface of the penis. After giving an injection, apply pressure to the injection site for 5 minutes. Talk to your health care provider about how to prevent headaches while taking ED medicines. These medicines may cause a sudden headache due to the increase in blood flow in your body. General instructions Exercise regularly, as directed by your health care provider. Work with your health care provider to lose weight, if needed. Do not use any products that contain nicotine or tobacco. These products include cigarettes, chewing tobacco, and vaping devices, such as e-cigarettes. If you need help quitting, ask your health care provider. Before using a vacuum pump, read the instructions that come with the pump and discuss any questions with your health care provider. Keep all follow-up visits. This is important. Contact a health care provider if: You feel nauseous. You are vomiting. You get sudden headaches while taking ED medicines. You have any concerns about your sexual health. Get help right away if: You are taking oral or injectable medicines and you have an erection that lasts longer than 4 hours. If your health care provider is unavailable, go to the nearest emergency room for evaluation. An erection that lasts much longer than 4 hours can result in permanent damage to your penis. You have severe pain in your groin or abdomen. You develop redness or severe swelling of your penis. You have redness spreading at your groin or lower abdomen. You are unable to urinate. You experience chest pain or a rapid heartbeat (palpitations) after taking oral medicines. These symptoms may represent a serious problem that is an emergency. Do not wait to see if the symptoms will go away. Get medical help right away. Call your local emergency services (911 in the [place] Do not drive yourself to the hospital. Summary Erectile dysfunction (ED) is the inability to get or keep an erection during sexual intercourse. This condition is diagnosed based on a physical exam, your symptoms, and tests to determine the cause. Treatment varies depending on the cause and may include medicines, hormone therapy, surgery, or a vacuum pump. You may need follow-up visits to make sure that you are using your medicines or devices correctly. Get help right away if you are taking or injecting medicines and you have an erection that lasts longer than 4 hours. This information is not intended to replace advice given to you by your health care provider. Make sure you discuss any questions you have with your health care provider. Document Revised: 09/05/2021 Document Reviewed: 09/05/2021 [employer] Patient Education 2022 [employer]. 02/12/2024 11:04:43 Benign Prostatic Hyperplasia Benign Prostatic Hyperplasia Benign prostatic hyperplasia (BPH) is an enlarged prostate gland that is caused by the normal aging process. The prostate may get bigger as a man gets older. The condition is not caused by cancer. The prostate is a walnut-sized gland that is involved in the production of semen. It is located in front of the rectum and below the bladder. The bladder stores urine. The urethra carries stored urine out of the body. An enlarged prostate can press on the urethra. This can make it harder to pass urine. The buildup of urine in the bladder can cause infection. Back pressure and infection may progress to bladder damage and kidney (renal) failure. What are the causes? This condition is part of the normal aging process. However, not all men develop problems from this condition. If the prostate enlarges away from the urethra, urine flow will not be blocked. If it enlarges toward the urethra and compresses it, there will be problems passing urine. What increases the risk? This condition is more likely to develop in men older than 50 years. What are the signs or symptoms? Symptoms of this condition include: Getting up often during the night to urinate. Needing to urinate frequently during the day. Difficulty starting urine flow. Decrease in size and strength of your urine stream. Leaking (dribbling) after urinating. Inability to pass urine. This needs immediate treatment. Inability to completely empty your bladder. Pain when you pass urine. This is more common if there is also an infection. Urinary tract infection (UTI). How is this diagnosed? This condition is diagnosed based on your medical history, a physical exam, and your symptoms. Tests will also be done, such as: A post-void bladder scan. This measures any amount of urine that may remain in your bladder after you finish urinating. A digital rectal exam. In a rectal exam, your health care provider checks your prostate by putting a lubricated, gloved finger into your rectum to feel the back of your prostate gland. This exam detects the size of your gland and any abnormal lumps or growths. An exam of your urine (urinalysis). A prostate specific antigen (PSA) screening. This is a blood test used to screen for prostate cancer. An ultrasound. This test uses sound waves to electronically produce a picture of your prostate gland. Your health care provider may refer you to a specialist in kidney and prostate diseases (urologist). How is this treated? Once symptoms begin, your health care provider will monitor your condition (active surveillance or watchful waiting). Treatment for this condition will depend on the severity of your condition. Treatment may include: Observation and yearly exams. This may be the only treatment needed if your condition and symptoms are mild. Medicines to relieve your symptoms, including: ?Medicines to shrink the prostate. ?Medicines to relax the muscle of the prostate. Surgery in severe cases. Surgery may include: ?Prostatectomy. In this procedure, the prostate tissue is removed completely through an open incision or with a laparoscope or robotics. ?Transurethral resection of the prostate (TURP). In this procedure, a tool is inserted through the opening at the tip of the penis (urethra). It is used to cut away tissue of the inner core of the prostate. The pieces are removed through the same opening of the penis. This removes the blockage. ?Transurethral incision (TUIP). In this procedure, small cuts are made in the prostate. This lessens the prostate's pressure on the urethra. ?Transurethral microwave thermotherapy (TUMT). This procedure uses microwaves to create heat. The heat destroys and removes a small amount of prostate tissue. ?Transurethral needle ablation (TUNA). This procedure uses radio frequencies to destroy and remove a small amount of prostate tissue. ?Interstitial laser coagulation (ILC). This procedure uses a laser to destroy and remove a small amount of prostate tissue. ?Transurethral electrovaporization (TUVP). This procedure uses electrodes to destroy and remove a small amount of prostate tissue. ?Prostatic urethral lift. This procedure inserts an implant to push the lobes of the prostate away from the urethra. Follow these instructions at home: Take vvuy-zgq-pdzpwco and prescription medicines only as told by your health care provider. Monitor your symptoms for any changes. Contact your health care provider with any changes. Avoid drinking large amounts of liquid before going to bed or out in public. Avoid or reduce how much caffeine or alcohol you drink. Give yourself time when you urinate. Keep all follow-up visits. This is important. Contact a health care provider if: You have unexplained back pain. Your symptoms do not get better with treatment. You develop side effects from the medicine you are taking. Your urine becomes very dark or has a bad smell. Your lower abdomen becomes distended and you have trouble passing urine. Get help right away if: You have a fever or chills. You suddenly cannot urinate. You feel light-headed or very dizzy, or you faint. There are large amounts of blood or clots in your urine. Your urinary problems become hard to manage. You develop moderate to severe low back or flank pain. The flank is the side of your body between the ribs and the hip. These symptoms may be an emergency. Get help right away. Call 911. Do not wait to see if the symptoms will go away. Do not drive yourself to the hospital. Summary Benign prostatic hyperplasia (BPH) is an enlarged prostate that is caused by the normal aging process. It is not caused by cancer. An enlarged prostate can press on the urethra. This can make it hard to pass urine. This condition is more likely to develop in men older than 50 years. Get help right away if you suddenly cannot urinate. This information is not intended to replace advice given to you by your health care provider. Make sure you discuss any questions you have with your health care provider. Document Revised: 12/26/2021 Document Reviewed: 12/26/2021 [employer] Patient Education 2022 [employer]. Follow Up Care 02/04/2023 16:00:13 With:SAMMY HUYNH, NATALIA Pollard, URL Address: [address] [place] [address] When: Unknown [facility] 02-12-2024 Note Patient Education Urology Erectile Dysfunction Erectile dysfunction (ED) is the inability to get or keep an erection in order to have sexual intercourse. ED is considered a symptom of an underlying disorder and is not considered a disease. ED may include: ? Inability to get an erection. ? Lack of enough hardness of the erection to allow penetration. ? Loss of erection before sex is finished. What are the causes? This condition may be caused by: ? Physical causes, such as: ? Artery problems. This may include heart disease, high blood pressure, atherosclerosis, and diabetes. ? Hormonal problems, such as low testosterone. ? Obesity. ? Nerve problems. This may include back or pelvic injuries, multiple sclerosis, Parkinson's disease, spinal cord injury, and stroke. ? Certain medicines, such as: ? Pain relievers. ? Antidepressants. ? Blood pressure medicines and water pills (diuretics). ? Cancer medicines. ? Antihistamines. ? Muscle relaxants. ? Lifestyle factors, such as: ? Use of drugs such as marijuana, cocaine, or opioids. ? Excessive use of alcohol. ? Smoking. ? Lack of physical activity or exercise. ? Psychological causes, such as: ? Anxiety or stress. ? Sadness or depression. ? Exhaustion. ? Fear about sexual performance. ? Guilt. What are the signs or symptoms? Symptoms of this condition include: ? Inability to get an erection. ? Lack of enough hardness of the erection to allow penetration. ? Loss of the erection before sex is finished. ? Sometimes having normal erections, but with frequent unsatisfactory episodes. ? Low sexual satisfaction in either partner due to erection problems. ? A curved penis occurring with erection. The curve may cause pain, or the penis may be too curved to allow for intercourse. ? Never having nighttime or morning erections. How is this diagnosed? This condition is often diagnosed by: ? Performing a physical exam to find other diseases or specific problems with the penis. ? Asking you detailed questions about the problem. ? Doing tests, such as: ? Blood tests to check for diabetes mellitus or high cholesterol, or to measure hormone levels. ? Other tests to check for underlying health conditions. ? An ultrasound exam to check for scarring. ? A test to check blood flow to the penis. ? Doing a sleep study at home to measure nighttime erections. How is this treated? This condition may be treated by: ? Medicines, such as: ? Medicine taken by mouth to help you achieve an erection (oral medicine). ? Hormone replacement therapy to replace low testosterone levels. ? Medicine that is injected into the penis. Your health care provider may instruct you how to give yourself these injections at home. ? Medicine that is delivered with a short applicator tube. The tube is inserted into the opening at the tip of the penis, which is the opening of the urethra. A tiny pellet of medicine is put in the urethra. The pellet dissolves and enhances erectile function. This is also called MUSE (medicated urethral system for erections) therapy. ? Vacuum pump. This is a pump with a ring on it. The pump and ring are placed on the penis and used to create pressure that helps the penis become erect. ? Penile implant surgery. In this procedure, you may receive: ? An inflatable implant. This consists of cylinders, a pump, and a reservoir. The cylinders can be inflated with a fluid that helps to create an erection, and they can be deflated after intercourse. ? A semi-rigid implant. This consists of two silicone rubber rods. The rods provide some rigidity. They are also flexible, so the penis can both curve downward in its normal position and become straight for sexual intercourse. ? Blood vessel surgery to improve blood flow to the penis. During this procedure, a blood vessel from a different part of the body is placed into the penis to allow blood to flow around (bypass) damaged or blocked blood vessels. ? Lifestyle changes, such as exercising more, losing weight, and quitting smoking. Follow these instructions at home: Medicines ? Take gkts-pzc-simthzl and prescription medicines only as told by your health care provider. Do not increase the dosage without first discussing it with your health care provider. ? If you are using self-injections, do injections as directed by your health care provider. Make sure you avoid any veins that are on the surface of the penis. After giving an injection, apply pressure to the injection site for 5 minutes. ? Talk to your health care provider about how to prevent headaches while taking ED medicines. These medicines may cause a sudden headache due to the increase in blood flow in your body. General instructions ? Exercise regularly, as directed by your health care provider. Work with your health care provider to lose weight, if needed. ? Do not use any products that contain nicotine or tobacco. These (more content not included)... [facility] 02-21-2023 Evaluation note Encounter Date Diagnosis Assessment Notes Feb, Chronic seasonal allergic rhinitis (ICD-10 - J30.2) [facility] Other 08-15-2023 Hospital Discharge instructions Patient Education 02/04/2023 15:59:06 Benign Prostatic Hyperplasia Benign Prostatic Hyperplasia Benign prostatic hyperplasia (BPH) is an enlarged prostate gland that is caused by the normal agingprocess. The prostate may get bigger as a man gets older. The condition is not caused by cancer. The prostate is a walnut-sized gland that is involved in the production of semen. It is located in front of the rectum and below the bladder. The bladder stores urine. The urethra carries stored urine ou t of the body. An enlarged prostate can press on the urethra. This can make it harder to pass urine. The buildup of urine in the bladder can cause infection. Back pressure and infection may progress to bladder damage and kidney (renal) failure. What are the causes? This condition is part of the normal aging process. However, not all men develop problems from thiscondition. If the prostate enlarges away from the urethra, urine flow will not be blocked. If it enlarges toward the urethra and compresses it, there will be problems passing urine. What increases the risk? This condition is more likely to develop in men older than 50 years. What are the signs or symptoms? Symptoms of this condition include: Getting up often during the night to urinate. Needing to urinate frequently during the day. Difficulty starting urine flow. Decrease in size and strength of your urine stream. Leaking (dribbling) after urinating. Inability to pass urine. This needs immediate treatment. Inability to completely empty your bladder. Pain when you pass urine. This is more common if there is also an infection. Urinary tract infection (UTI). How is this diagnosed? This condition is diagnosed based on your medical history, a physical exam, and your symptoms. Tests will also be done, such as: A post-void bladder scan. This measures any amount of urine that may remain in your bladder after you finish urinating. A digital rectal exam. In a rectal exam, your health care provider checks your prostate by putting a lubricated, gloved finger into your rectum to feel the back of your prostate gland. This exam detects the size of your gland and any abnormal lumps or growths. An exam of your urine (urinalysis). A prostate specific antigen (PSA) screening. This is a blood test used to screen for prostate cancer. An ultrasound. This test uses sound waves to electronically produce a picture of your prostate gland. Your health care provider may refer you to a specialist in kidney and prostate diseases (urologist). How is this treated? Once symptoms begin, your health care provider will monitor your condition (active surveillance or watchful waiting). Treatment for this condition will depend on the severity of your condition. Treatment may include: Observation and yearly exams. This may be the only treatment needed if your condition and symptoms are mild. Medicines to relieve your symptoms, including: ?Medicines to shrink the prostate. ?Medicines to relax the muscle of the prostate. Surgery in severe cases. Surgery may include: ?Prostatectomy. In this procedure, the prostate tissue is removed completely through an open incision or with a laparoscope or robotics. ?Transurethral resection of the prostate (TURP). In this procedure, a tool is inserted through the opening at the tip of the penis (urethra). It is used to cut away tissue of the inner core of the prostate. The pieces are removed through the same opening of the penis. This removes the blockage. ?Transurethral incision (TUIP). In this procedure, small cuts are made in the prostate. This lessens the prostate's pressure on the urethra. ?Transurethral microwave thermotherapy (TUMT). This procedure uses microwaves to create heat. The heat destroys and removes a small amount of prostate tissue. ?Transurethral needle ablation (TUNA). This procedure uses radio frequencies to destroy and remove a small amount of prostate tissue. ?Interstitial laser coagulation (ILC). This procedure uses a laser to destroy and remove a small amount of prostate tissue. ?Transurethral electrovaporization (TUVP). This procedure uses electrodes to destroy and remove a small amount of prostate tissue. ?Prostatic urethral lift. This procedure inserts an implant to push the lobes of the prostate away from the urethra. Follow these instructions at home: Take cjmd-gcl-awhfuth and prescription medicines only as told by your health care provider. Monitor your symptoms for any changes. Contact your health care provider with any changes. Avoid drinking large amounts of liquid before going to bed or out in public. Avoid or reduce how much caffeine or alcohol you drink. Give yourself time when you urinate. Keep all follow-up visits. This is important. Contact a health care provider if: You have unexplained back pain. Your symptoms do not get better with treatment. You develop side effects from the medicine you are taking. Your urine becomes very dark or has a bad smell. Your lower abdomen becomes distended and you have trouble passing urine. Get help right away if: You have a fever or chills. You suddenly cannot urinate. You feel light-headed or very dizzy, or you faint. There are large amounts of blood or clots in your urine. Your urinary problems become hard to manage. You develop moderate to severe low back or flank pain. The flank is the side of your body between the ribs and the hip. These symptoms may be an emergency. Get help right away. Call 911. Do not wait to see if the symptoms will go away. Do not drive yourself to the hospital. Summary Benign prostatic hyperplasia (BPH) is an enlarged prostate that is caused by the normal aging process. It is not caused by cancer. An enlarged prostate can press on the urethra. This can make it hard to pass urine. This condition is more likely to develop in men older than 50 years. Get help right away if you suddenly cannot urinate. This information is not intended to replace advice given to you by your health care provider. Make sure you discuss any questions you have with your health care provider. Document Revised: 12/26/2021 Document Reviewed: 12/26/2021 Else[employer] Patient Education 2022 [employer]. Follow Up Care 01/15/2022 08:34:08 With:SAMMY HUYNH, NATALIA Pollard, URL Address: [place] [address] When:Within 1 Year(s) Comments:w/PSA [facility] 07-25-2023 Evaluation note* Encounter Date Diagnosis Assessment Notes Treatment Notes Treatment Clinical Notes Dec, Polanco's esophagus (ICD-10 - K22.70) [facility] Other 06-06-2023 Evaluation note* Encounter Date Diagnosis Assessment Notes Treatment Notes Treatment Clinical Notes Nov, Chronic seasonal allergic rhinitis (ICD-10 - J30.2) [facility] Other 09-02-2022 History general Narrative - Reported* Type Description Date Medical History urinary incontinency Surgical History left ankle reconstruction Hospitalization History no overnight [facility] in the last year 10/2022 [facility] Other 07-26-2022 History general Narrative - Reported* Type Description Date Medical History urinary incontinency Surgical History left ankle reconstruction Hospitalization History no overnight hospital [facility] in the last year 10/2022 [facility] Other 07-26-2022 Hospital Discharge instructions Patient Education 01/15/2022 08:18:35 Benign Prostatic Hyperplasia Benign Prostatic Hyperplasia Benign prostatic hyperplasia (BPH) is an enlarged prostate gland that is caused by the normal agingprocess and not by cancer. The prostate is a walnut-sized gland that is involved in the production of semen. It is located in front of the rectum and below the bladder. The bladder stores urine and the urethra is the tube that carries the urine out of the body. The prostate may get bigger as a man gets older. An enlarged prostate can press on the urethra. This can make it harder to pass urine. The build-up of urine in the bladder can cause infection. Back pressure and infection may progress to bladder damage and kidney (renal) failure. What are the causes? This condition is part of a normal aging process. However, not all men develop problems from this condition. If the prostate enlarges away from the urethra, urine flow will not be blocked. If it enlarges toward the urethra and compresses it, there will be problems passing urine. What increases the risk? This condition is more likely to develop in men over the age of 50 years. What are the signs or symptoms? Symptoms of this condition include: Getting up often during the night to urinate. Needing to urinate frequently during the day. Difficulty starting urine flow. Decrease in size and strength of your urine stream. Leaking (dribbling) after urinating. Inability to pass urine. This needs immediate treatment. Inability to completely empty your bladder. Pain when you pass urine. This is more common if there is also an infection. Urinary tract infection (UTI). How is this diagnosed? This condition is diagnosed based on your medical history, a physical exam, and your symptoms. Tests will also be done, such as: A post-void bladder scan. This measures any amount of urine that may remain in your bladder after you finish urinating. A digital rectal exam. In a rectal exam, your health care provider checks your prostate by putting a lubricated, gloved finger into your rectum to feel the back of your prostate gland. This exam detects the size of your gland and any abnormal lumps or growths. An exam of your urine (urinalysis). A prostate specific antigen (PSA) screening. This is a blood test used to screen for prostate cancer. An ultrasound. This test uses sound waves to electronically produce a picture of your prostate gland. Your health care provider may refer you to a specialist in kidney and prostate diseases (urologist). How is this treated? Once symptoms begin, your health care provider will monitor your condition (active surveillance or watchful waiting). Treatment for this condition will depend on the severity of your condition. Treatment may include: Observation and yearly exams. This may be the only treatment needed if your condition and symptoms are mild. Medicines to relieve your symptoms, including: ?Medicines to shrink the prostate. ?Medicines to relax the muscle of the prostate. Surgery in severe cases. Surgery may include: ?Prostatectomy. In this procedure, the prostate tissue is removed completely through an open incision or with a laparoscope or robotics. ?Transurethral resection of the prostate (TURP). In this procedure, a tool is inserted through the opening at the tip of the penis (urethra). It is used to cut away tissue of the inner core of the prostate. The pieces are removed through the same opening of the penis. This removes the blockage. ?Transurethral incision (TUIP). In this procedure, small cuts are made in the prostate. This lessens the prostate's pressure on the urethra. ?Transurethral microwave thermotherapy (TUMT). This procedure uses microwaves to create heat. The heat destroys and removes a small amount of prostate tissue. ?Transurethral needle ablation (TUNA). This procedure uses radio frequencies to destroy and remove a small amount of prostate tissue. ?Interstitial laser coagulation (ILC). This procedure uses a laser to destroy and remove a small amount of prostate tissue. ?Transurethral electrovaporization (TUVP). This procedure uses electrodes to destroy and remove a small amount of prostate tissue. ?Prostatic urethral lift. This procedure inserts an implant to push the lobes of the prostate away from the urethra. Follow these instructions at home: Take jpzi-dyj-ysmcagx and prescription medicines only as told by your health care provider. Monitor your symptoms for any changes. Contact your health care provider with any changes. Avoid drinking large amounts of liquid before going to bed or out in public. Avoid or reduce how much caffeine or alcohol you drink. Give yourself time when you urinate. Keep all follow-up visits as told by your health care provider. This is important. Contact a health care provider if: You have unexplained back pain. Your symptoms do not get better with treatment. You develop side effects from the medicine you are taking. Your urine becomes very dark or has a bad smell. Your lower abdomen becomes distended and you have trouble passing your urine. Get help right away if: You have a fever or chills. You suddenly cannot urinate. You feel lightheaded, or very dizzy, or you faint. There are large amounts of blood or clots in the urine. Your urinary problems become hard to manage. You develop moderate to severe low back or flank pain. The flank is the side of your body between the ribs and the hip. These symptoms may represent a serious problem that is an emergency. Do not wait to see if the symptoms will go away. Get medical help right away. Call your local emergency services (911 in the [place] Do not drive yourself to the hospital. Summary Benign prostatic hyperplasia (BPH) is an enlarged prostate that is caused by the normal aging process and not by cancer. An enlarged prostate can press on the urethra. This can make it hard to pass urine. This condition is part of a normal aging process and is more likely to develop in men over the age of 50 years. Get help right away if you suddenly cannot urinate. This information is not intended to replace advice given to you by your health care provider. Make sure you discuss any questions you have with your health care provider. Document Released: 06/09/2006 Document Revised: 05/04/2019 Document Reviewed: 07/14/2017 [employer] Patient Education 2020 [employer]. Follow Up Care 12/12/2020 15:38:12 With:Sean Parham MD, Cookie Kessler [facility] Address: [facility] [address], [place] [place] [address]- [phone] When:Within 1 Year(s) Comments:w/ PSA [facility] [place] 07-08-2022 Evaluation note* Encounter Date Diagnosis Assessment Notes Treatment Notes Treatment Clinical Notes Dec, Polanco's esophagus (ICD-10 - K22.70) [facility] Other 07-05-2022 Evaluation note* Encounter Date Diagnosis Assessment Notes Treatment Notes Treatment Clinical Notes Dec, Polanco's esophagus (ICD-10 - K22.70) [facility] Other 06-16-2022 History general Narrative - Reported* Type Description Date Medical History urinary incontinency Surgical History left ankle reconstruction Hospitalization History no overnight hospital [facility] in the last year 10/2022 [facility] Other 06-11-2022 History general Narrative - Reported* Type Description Date Medical History urinary incontinency Surgical History left ankle reconstruction Hospitalization History no overnight hospital [facility] in the last year 10/2022 [facility] Other 02-09-2022 Evaluation note* Encounter Date Diagnosis Assessment Notes Treatment Notes Treatment Clinical Notes Jul, Polanco's esophagus (ICD-10 - K22.70) Jul, GERD (gastroesophageal reflux disease) (ICD-10 - K21.9) Continue Omeprazole daily without change. Follow up in 1 year Jul, Peptic stricture of esophagus (ICD-10 - K22.2) [facility] Other 11-17-2021 NoteHNO ID: [id number] Author: Kwame Cedillo MD Service: ? Author Type: Physician Type: Progress Notes Filed: 05/09/2021 9:15 AM Note Text: 05/09/2021 RE: Dominci Yu DATE OF : 1965 Vitals: Resp 18 Ht 6' 2 (1.88m) Wt 250 lb (113.4kg) BMI 32.08 kg/(m2). FOLLOW UP VISIT: Trimalleolar fracture left ankle HPI: He is doing much better at this time with walking. He states that the physical therapy has helped significantly the motion as well as the ambulation. REVIEW OF SYSTEMS: MUSCULOSKELETAL: Negative for joint pain or swelling, back pain or muscle pain PAST MEDICAL HISTORY Diagnosis Date - Hypertension - Psychiatric disorder PAST SURGICAL HISTORY Procedure Laterality Date - JOINT REPLACEMENT HX hip - PAST SURGICAL HISTORY OF Left 12/24/2020 ankle - PAST SURGICAL HISTORY OF Right 2000 right foot Social History Tobacco Use - Smoking status: Never Smoker - Smokeless tobacco: Current User Types: Chew - Tobacco comment: FOR 27 YEARS, 1 CAN EVERY 2 DAYS Vaping Use - Vaping Use: Never used Substance Use Topics - Alcohol use: Yes Alcohol/week: 0.0 standard drinks Types: 1 Cans of Beer (12oz) per week Comment: social - Drug use: Not on file ALLERGIES Allergen Reactions - Hay Fever [Seasonal* Itching Current Medications: Current Outpatient Medications Medication Sig Dispense Refill - omeprazole (PRILOSEC) 40 mg capsule Take 40 mg by mouth once daily. - losartan (COZAAR) 25 mg tablet Take 25 mg by mouth once daily. - sildenafil (VIAGRA) 100 mg tablet Take 100 mg by mouth as needed. - lamoTRIgine (LAMICTAL) 100 mg tablet Take 150 mg by mouth once daily. - Aspirin 81 mg tab Take 1 tablet by mouth once daily. 30 tablet 0 - therapeutic multivitamin tablet Take 1 tablet by mouth once daily. 30 tablet 0 - antiox#[id number]-[id number] (I-CAPS) 280-10-2 mg cap Take 2 capsules by mouth twice daily. - oxyCODONE-acetaminophen (PERCOCET) 5-325 mg tablet Take 1 tablet by mouth every 6 hours as needed. (Patient not taking: Reported on 02/27/2021) 28 tablet 0 - FLUoxetine HCl 20 mg tablet Take 20 mg by mouth once daily. (Patient not taking: Reported on 05/09/2021 ) - metoprolol succinate ER (TOPROL XL) 25 mg 24 hr tablet Take 25 mg by mouth once daily. (Patient not taking: Reported on 05/09/2021 ) - doxazosin (CARDURA) 1 mg tablet Take 1 mg by mouth daily at bedtime. (Patient not taking: Reported on 05/09/2021 ) - Amoxicillin 500 mg tablet Take 6 capsules one hour before procedure and 2 capsules six hours after procedure (Patient not taking: Reported on 05/09/2021 ) 24 tablet 0 No current facility-administered medications for this visit. PHYSICAL EXAMINATION: He has good range of motion the left ankle there there is no instability on anterior posterior varus valgus stress. RADIOGRAPHIC EXAMINATION: See note IMPRESSION: Fracture left ankle PLAN: He should continue with progression of ambulation as tolerated. I am releasing him to further follow-up. Kwame Cedillo, [facility]11-17-2021 NoteHNO ID: [id number] Author: April Roche LPN Service: ? Author Type: LICENSED NURSE Type: Progress Notes Filed: 05/09/2021 9:15 AM Note Text: REVIEW OF SYSTEMS: GENERAL: Well developed, well nourished. No acute distress PAIN: Negative for pain, history of chronic pain or current treatment for chronic pain conditions CARDIOVASCULAR: Negative for chest pain, leg swelling and palpations. MSK: Negative for joint swelling SKIN: Negative for lesions, rash, itching, metal sensitivity NEURO: Negative for seizure, trauma, numbness/tingling of extremities. ENDOCRINE: Negative for diabetic associated symptoms HEMATOLOGY: Negative for excessive bleeding, clots, bleeding disorders.[facility]10-27-2021 NoteHNO ID: [id number] Author: Kwame Cedillo MD Service: ? Author Type: Physician Type: Progress Notes Filed: 04/18/2021 1:33 PM Note Text: 04/18/2021 RE: Dominic Yu DATE OF : 1965 Vitals: Resp 16 Ht 6' 2 (1.88m) Wt 250 lb (113.4kg) BMI 32.08 kg/(m2). FOLLOW UP VISIT: Trimalleolar fracture left ankle HPI: He continues to have pain and swelling in his left ankle. This precludes normal ambulation REVIEW OF SYSTEMS: MUSCULOSKELETAL: Negative for joint pain or swelling, back pain or muscle pain PAST MEDICAL HISTORY Diagnosis Date - Hypertension - Psychiatric disorder PAST SURGICAL HISTORY Procedure Laterality Date - JOINT REPLACEMENT HX hip - PAST SURGICAL HISTORY OF Left 12/24/2020 ankle - PAST SURGICAL HISTORY OF Right 2000 right foot Social History Tobacco Use - Smoking status: Never Smoker - Smokeless tobacco: Current User Types: Chew - Tobacco comment: FOR 27 YEARS, 1 CAN EVERY 2 DAYS Vaping Use - Vaping Use: Never used Substance Use Topics - Alcohol use: Yes Alcohol/week: 0.0 standard drinks Types: 1 Cans of Beer (12oz) per week Comment: social - Drug use: Not on file ALLERGIES Allergen Reactions - Hay Fever [Seasonal* Itching Current Medications: Current Outpatient Medications Medication Sig Dispense Refill - oxyCODONE-acetaminophen (PERCOCET) 5-325 mg tablet Take 1 tablet by mouth every 6 hours as needed. (Patient not taking: Reported on 02/27/2021) 28 tablet 0 - omeprazole (PRILOSEC) 40 mg capsule Take 40 mg by mouth once daily. - losartan (COZAAR) 25 mg tablet Take 25 mg by mouth once daily. - FLUoxetine HCl 20 mg tablet Take 20 mg by mouth once daily. - sildenafil (VIAGRA) 100 mg tablet Take 100 mg by mouth as needed. - lamoTRIgine (LAMICTAL) 100 mg tablet Take 150 mg by mouth once daily. - metoprolol succinate ER (TOPROL XL) 25 mg 24 hr tablet Take 25 mg by mouth once daily. - doxazosin (CARDURA) 1 mg tablet Take 1 mg by mouth daily at bedtime. - Amoxicillin 500 mg tablet Take 6 capsules one hour before procedure and 2 capsules six hours after procedure 24 tablet 0 - Aspirin 81 mg tab Take 1 tablet by mouth once daily. 30 tablet 0 - therapeutic multivitamin tablet Take 1 tablet by mouth once daily. 30 tablet 0 - antiox#[id number]-[id number] (I-CAPS) 280-10-2 mg cap Take 2 capsules by mouth twice daily. No current facility-administered medications for this visit. PHYSICAL EXAMINATION: Good range of motion left ankle. No instability noted.Moderate swelling noted. RADIOGRAPHIC EXAMINATION: See note IMPRESSION: Trimalleolar fracture left ankle PLAN: Continue with progression of exercises and weight bearing ambulation as tolerated. I gave him a prescription for PT to assist him with this.Return in 1 month re monicaay Kwame Cedillo, [facility]10-27-2021 NoteHNO ID: [id number] Author: Nurys Maurice MA Service: ? Author Type: Credentialing Assistant Type: Progress Notes Filed: 04/18/2021 1:33 PM Note Text: REVIEW OF SYSTEMS: GENERAL: Well developed, well nourished. No acute distress PAIN: Pain left ankle CARDIOVASCULAR: HTN MSK: Positive for joint swelling SKIN: Negative for lesions, rash, itching, metal sensitivity NEURO: Negative for seizure, trauma, numbness/tingling of extremities. ENDOCRINE: Negative for diabetic associated symptoms HEMATOLOGY: Negative for excessive bleeding, clots, bleeding disorders.[facility]09-28-2021 NoteHNO ID: [id number] Author: Kwame Cedillo MD Service: ? Author Type: Physician Type: Progress Notes Filed: 03/20/2021 1:20 PM Note Text: 03/20/2021 RE: Dominic Yu DATE OF : 1965 Vitals: Resp 18 Ht 6' 2 (1.88m) Wt 260 lb (117.9kg) BMI 33.37 kg/(m2). FOLLOW UP VISIT: Trimalleolar fracture left ankle HPI: He is continuing to have some discomfort in his left ankle is not back to full ambulation yet. Is using a cane. He has not noted any giving way. REVIEW OF SYSTEMS: MUSCULOSKELETAL: Negative for joint pain or swelling, back pain or muscle pain PAST MEDICAL HISTORY Diagnosis Date - Hypertension - Psychiatric disorder PAST SURGICAL HISTORY Procedure Laterality Date - JOINT REPLACEMENT HX hip - PAST SURGICAL HISTORY OF Left 12/24/2020 ankle - PAST SURGICAL HISTORY OF Right 2000 right foot Social History Tobacco Use - Smoking status: Never Smoker - Smokeless tobacco: Current User Types: Chew - Tobacco comment: FOR 27 YEARS, 1 CAN EVERY 2 DAYS Vaping Use - Vaping Use: Never used Substance Use Topics - Alcohol use: Yes Alcohol/week: 0.0 standard drinks Types: 1 Cans of Beer (12oz) per week Comment: social - Drug use: Not on file ALLERGIES Allergen Reactions - Hay Fever [Seasonal* Itching Current Medications: Current Outpatient Medications Medication Sig Dispense Refill - omeprazole (PRILOSEC) 40 mg capsule Take 40 mg by mouth once daily. - losartan (COZAAR) 25 mg tablet Take 25 mg by mouth once daily. - sildenafil (VIAGRA) 100 mg tablet Take 100 mg by mouth as needed. - Aspirin 81 mg tab Take 1 tablet by mouth once daily. 30 tablet 0 - therapeutic multivitamin tablet Take 1 tablet by mouth once daily. 30 tablet 0 - antiox#[id number]-uid-poe-mfdq (I-CAPS) 280-10-2 mg cap Take 2 capsules by mouth twice daily. - oxyCODONE-acetaminophen (PERCOCET) 5-325 mg tablet Take 1 tablet by mouth every 6 hours as needed. (Patient not taking: Reported on 02/27/2021) 28 tablet 0 - FLUoxetine HCl 20 mg tablet Take 20 mg by mouth once daily. - lamoTRIgine (LAMICTAL) 100 mg tablet Take 150 mg by mouth once daily. - metoprolol succinate ER (TOPROL XL) 25 mg 24 hr tablet Take 25 mg by mouth once daily. - doxazosin (CARDURA) 1 mg tablet Take 1 mg by mouth daily at bedtime. - Amoxicillin 500 mg tablet Take 6 capsules one hour before procedure and 2 capsules six hours after procedure 24 tablet 0 No current facility-administered medications for this visit. PHYSICAL EXAMINATION: There is good range of motion of the left ankle lacking about 10 degrees of full dorsiflexion. He is able to weight-bear without too much pain. RADIOGRAPHIC EXAMINATION: See note IMPRESSION: Trimalleolar fracture left ankle PLAN: He should continue working on progression of ambulation as tolerated. Observe to get him back to independent ambulation. He does not feel he is ready to get back to full work. I am going to extend his work release through the end of May. Return in 3 weeks for recheck. Cody Cedillo, [facility]09-07-2021 NoteHNO ID: [id number] Author: Kwame Cedillo MD Service: ? Author Type: Physician Type: Progress Notes Filed: 02/27/2021 1:44 PM Note Text: 02/27/2021 RE: Dominic Yu DATE OF : 1965 Vitals: Resp 20 Ht 6' 2 (1.88m) Wt 260 lb (117.9kg) BMI 33.37 kg/(m2). FOLLOW UP VISIT: Trimalleolar fracture left ankle HPI: He has been able to resume some weightbearing ambulation but the swelling has precluded getting back into normal shoewear. He is not having significant discomfort in his left ankle. REVIEW OF SYSTEMS: MUSCULOSKELETAL: Negative for joint pain or swelling, back pain or muscle pain PAST MEDICAL HISTORY Diagnosis Date - Hypertension - Psychiatric disorder PAST SURGICAL HISTORY Procedure Laterality Date - JOINT REPLACEMENT HX hip - PAST SURGICAL HISTORY OF Left 12/24/2020 ankle - PAST SURGICAL HISTORY OF Right 2000 right foot Social History Tobacco Use - Smoking status: Never Smoker - Smokeless tobacco: Current User Types: Chew - Tobacco comment: FOR 27 YEARS, 1 CAN EVERY 2 DAYS Vaping Use - Vaping Use: Never used Substance Use Topics - Alcohol use: Yes Alcohol/week: 0.0 standard drinks Types: 1 Cans of Beer (12oz) per week Comment: social - Drug use: Not on file ALLERGIES Allergen Reactions - Hay Fever [Seasonal* Itching Current Medications: Current Outpatient Medications Medication Sig Dispense Refill - omeprazole (PRILOSEC) 40 mg capsule Take 40 mg by mouth once daily. - losartan (COZAAR) 25 mg tablet Take 25 mg by mouth once daily. - FLUoxetine HCl 20 mg tablet Take 20 mg by mouth once daily. - sildenafil (VIAGRA) 100 mg tablet Take 100 mg by mouth as needed. - lamoTRIgine (LAMICTAL) 100 mg tablet Take 150 mg by mouth once daily. - metoprolol succinate ER (TOPROL XL) 25 mg 24 hr tablet Take 25 mg by mouth once daily. - doxazosin (CARDURA) 1 mg tablet Take 1 mg by mouth daily at bedtime. - Amoxicillin 500 mg tablet Take 6 capsules one hour before procedure and 2 capsules six hours after procedure 24 tablet 0 - Aspirin 81 mg tab Take 1 tablet by mouth once daily. 30 tablet 0 - therapeutic multivitamin tablet Take 1 tablet by mouth once daily. 30 tablet 0 - antiox#[id number]-[id number]-ahf-sbhr (I-CAPS) 280-10-2 mg cap Take 2 capsules by mouth twice daily. - oxyCODONE-acetaminophen (PERCOCET) 5-325 mg tablet Take 1 tablet by mouth every 6 hours as needed. (Patient not taking: Reported on 02/27/2021) 28 tablet 0 No current facility-administered medications for this visit. PHYSICAL EXAMINATION: He has good range of motion left ankle. There is no instability on anterior posterior varus valgus stress. There is a moderate amount of swelling. RADIOGRAPHIC EXAMINATION: See note IMPRESSION: Trimalleolar fracture left ankle PLAN: He should continue with progression of weightbearing ambulation as tolerated. May try to get back into normal shoewear if the swelling goes down. Return in 2 weeks for recheck with x-ray. Kwame Cedillo, [facility]08-17-2021 NoteHNO ID: [id number] Author: Kwame Cedillo MD Service: ? Author Type: Physician Type: Progress Notes Filed: 02/06/2021 2:46 PM Note Text: 02/06/2021 RE: Dominic Yu DATE OF : 1965 Vitals: Resp 18 Ht 6' 2 (1.88m) Wt 260 lb (117.9kg) BMI 33.37 kg/(m2). FOLLOW UP VISIT: Trimalleolar fracture left ankle HPI: He is approaching 6 weeks post fracture left ankle. He has been using the boot for protection and is nonweightbearing. He is not having any pain. REVIEW OF SYSTEMS: MUSCULOSKELETAL: Negative for joint pain or swelling, back pain or muscle pain PAST MEDICAL HISTORY Diagnosis Date - Hypertension - Psychiatric disorder PAST SURGICAL HISTORY Procedure Laterality Date - JOINT REPLACEMENT HX hip Social History Tobacco Use - Smoking status: Never Smoker - Smokeless tobacco: Current User Types: Chew - Tobacco comment: FOR 27 YEARS, 1 CAN EVERY 2 DAYS Vaping Use - Vaping Use: Never used Substance Use Topics - Alcohol use: Yes Alcohol/week: 0.0 standard drinks Types: 1 Cans of Beer (12oz) per week Comment: social - Drug use: Not on file ALLERGIES Allergen Reactions - Hay Fever [Seasonal* Itching Current Medications: Current Outpatient Medications Medication Sig Dispense Refill - oxyCODONE-acetaminophen (PERCOCET) 5-325 mg tablet Take 1 tablet by mouth every 6 hours as needed. 28 tablet 0 - omeprazole (PRILOSEC) 40 mg capsule Take 40 mg by mouth once daily. - losartan (COZAAR) 25 mg tablet Take 25 mg by mouth once daily. - FLUoxetine HCl 20 mg tablet Take 20 mg by mouth once daily. - sildenafil (VIAGRA) 100 mg tablet Take 100 mg by mouth as needed. - lamoTRIgine (LAMICTAL) 100 mg tablet Take 150 mg by mouth once daily. - metoprolol succinate ER (TOPROL XL) 25 mg 24 hr tablet Take 25 mg by mouth once daily. - doxazosin (CARDURA) 1 mg tablet Take 1 mg by mouth daily at bedtime. - Amoxicillin 500 mg tablet Take 6 capsules one hour before procedure and 2 capsules six hours after procedure 24 tablet 0 - Aspirin 81 mg tab Take 1 tablet by mouth once daily. 30 tablet 0 - therapeutic multivitamin tablet Take 1 tablet by mouth once daily. 30 tablet 0 - antiox#46-[id number]-ymw-omb-sko-ppsm (I-CAPS) 280-10-2 mg cap Take 2 capsules by mouth twice daily. No current facility-administered medications for this visit. PHYSICAL EXAMINATION: There is still some swelling and ecchymosis surrounding the left ankle. He has good range of motion. There is no instability on anterior posterior varus valgus stress. RADIOGRAPHIC EXAMINATION: See note IMPRESSION: Trimalleolar fracture left ankle PLAN: He should continue now with progression of weightbearing ambulation. He may initially use the boot but may make the transition into normal shoewear as time goes on. I would like to see him back again in 3 weeks for recheck with x-ray. Kwame Cedillo, [facility]08-03-2021 NoteHNO ID: [id number] Author: Kwame Cedillo MD Service: ? Author Type: Physician Type: Progress Notes Filed: 01/23/2021 1:29 PM Note Text: 01/23/2021 RE: Dominic Yu DATE OF : 1965 Vitals: Resp 18 Ht 6' 2 (1.88m) Wt 260 lb (117.9kg) BMI 33.37 kg/(m2). FOLLOW UP VISIT: Fracture left tibial plafond HPI: He is now about 1 month post open reduction internal fixation of the left ankle. He still has a moderate amount of swelling. He also has limitation of motion of his left ankle. Is been using the boot and is nonweightbearing. REVIEW OF SYSTEMS: MUSCULOSKELETAL: Negative for joint pain or swelling, back pain or muscle pain PAST MEDICAL HISTORY Diagnosis Date - Hypertension - Psychiatric disorder PAST SURGICAL HISTORY Procedure Laterality Date - JOINT REPLACEMENT HX hip Social History Tobacco Use - Smoking status: Never Smoker - Smokeless tobacco: Current User Types: Chew - Tobacco comment: FOR 27 YEARS, 1 CAN EVERY 2 DAYS Vaping Use - Vaping Use: Never used Substance Use Topics - Alcohol use: Yes Alcohol/week: 0.0 standard drinks Types: 1 Cans of Beer (12oz) per week Comment: social - Drug use: Not on file ALLERGIES Allergen Reactions - Hay Fever [Seasonal* Itching Current Medications: Current Outpatient Medications Medication Sig Dispense Refill - oxyCODONE-acetaminophen (PERCOCET) 5-325 mg tablet Take 1 tablet by mouth every 6 hours as needed. 28 tablet 0 - omeprazole (PRILOSEC) 40 mg capsule Take 40 mg by mouth once daily. - losartan (COZAAR) 25 mg tablet Take 25 mg by mouth once daily. - FLUoxetine HCl 20 mg tablet Take 20 mg by mouth once daily. - sildenafil (VIAGRA) 100 mg tablet Take 100 mg by mouth as needed. - lamoTRIgine (LAMICTAL) 100 mg tablet Take 150 mg by mouth once daily. - metoprolol succinate ER (TOPROL XL) 25 mg 24 hr tablet Take 25 mg by mouth once daily. - doxazosin (CARDURA) 1 mg tablet Take 1 mg by mouth daily at bedtime. - Amoxicillin 500 mg tablet Take 6 capsules one hour before procedure and 2 capsules six hours after procedure 24 tablet 0 - Aspirin 81 mg tab Take 1 tablet by mouth once daily. 30 tablet 0 - therapeutic multivitamin tablet Take 1 tablet by mouth once daily. 30 tablet 0 - antiox#54-[id number]-ugw-ecm-hudh (I-CAPS) 280-10-2 mg cap Take 2 capsules by mouth twice daily. No current facility-administered medications for this visit. PHYSICAL EXAMINATION: There is some limitation of motion of the left ankle primarily to dorsiflexion. No instability is noted on anterior posterior varus valgus stress. He has moderate amount of discoloration and swelling about the left ankle. RADIOGRAPHIC EXAMINATION: See note IMPRESSION: Fracture left tibial plafond PLAN: He should continue working on range of motion of the left ankle. He should continue using the boot for protection. He should be nonweightbearing. Return in 2 weeks for recheck with x-ray. Kwame Cedillo, [facility]07-20-2021 NoteHNO ID: [id number] Author: Kwame Cedillo MD Service: ? Author Type: Physician Type: Progress Notes Filed: 01/09/2021 1:24 PM Note Text: 01/09/2021 RE: Dominic Yu DATE OF : 1965 Vitals: Resp 18 Ht 6' 2 (1.88m) Wt 260 lb (117.9kg) BMI 33.37 kg/(m2). FOLLOW UP VISIT: Triimalleolar fracture left ankle HPI: He is status post open reduction internal fixation of the left ankle. We remove the splint for today's evaluation. He is having moderate amount of pain. He also has swelling. REVIEW OF SYSTEMS: MUSCULOSKELETAL: Negative for joint pain or swelling, back pain or muscle pain PAST MEDICAL HISTORY Diagnosis Date - Hypertension - Psychiatric disorder PAST SURGICAL HISTORY Procedure Laterality Date - JOINT REPLACEMENT HX hip Social History Tobacco Use - Smoking status: Never Smoker - Smokeless tobacco: Current User Types: Chew - Tobacco comment: FOR 27 YEARS, 1 CAN EVERY 2 DAYS Vaping Use - Vaping Use: Never used Substance Use Topics - Alcohol use: Yes Alcohol/week: 0.0 standard drinks Types: 1 Cans of Beer (12oz) per week Comment: social - Drug use: Not on file ALLERGIES Allergen Reactions - Hay Fever [Seasonal* Itching Current Medications: Current Outpatient Medications Medication Sig Dispense Refill - omeprazole (PRILOSEC) 40 mg capsule Take 40 mg by mouth once daily. - losartan (COZAAR) 25 mg tablet Take 25 mg by mouth once daily. - FLUoxetine HCl 20 mg tablet Take 20 mg by mouth once daily. - sildenafil (VIAGRA) 100 mg tablet Take 100 mg by mouth as needed. - lamoTRIgine (LAMICTAL) 100 mg tablet Take 150 mg by mouth once daily. - metoprolol succinate ER (TOPROL XL) 25 mg 24 hr tablet Take 25 mg by mouth once daily. - doxazosin (CARDURA) 1 mg tablet Take 1 mg by mouth daily at bedtime. - Amoxicillin 500 mg tablet Take 6 capsules one hour before procedure and 2 capsules six hours after procedure 24 tablet 0 - Aspirin 81 mg tab Take 1 tablet by mouth once daily. 30 tablet 0 - therapeutic multivitamin tablet Take 1 tablet by mouth once daily. 30 tablet 0 - antiox#[id number]-kdf-utz-hvu-xuxo (I-CAPS) 280-10-2 mg cap Take 2 capsules by mouth twice daily. No current facility-administered medications for this visit. PHYSICAL EXAMINATION: There is a moderate amount of swelling about the left ankle. Incision noted to be healing nicely. He does have a small fracture blister on the medial aspect of the left ankle. The alignment looks good. RADIOGRAPHIC EXAMINATION: See note IMPRESSION: Trimalleolar fracture left ankle PLAN: I had the tech remove justin today. We placed him into a tall walker boot. He should continue with nonweightbearing. He may remove the boot for range of motion and washing. Return in 2 weeks for recheck with x-ray. Kwame Cedillo, [facility]07-05-2021 NoteHNO ID: [id number] Author: Hung Bishop MD Service: Orthopaedic Surgery Author Type: Resident Type: Progress Notes Filed: 12/25/2020 7:05 AM Note Text: Inpatient Daily Progress Note Assessment and Plan Dominic Yu is a 55 year old male who is POD #1 status-post ORIF left trimalleolar ankle fracture. Diet regular Follow up PACU xray left ankle NWB LLE Maintain splint C/D/I PT/OT DVT prophylaxis: Aspirin 81 bid Pain Control Anticipate discharge home in 1 day ? Subjective No acute events overnight. Pain controlled. No new complaints. Physical Examination Vitals BP 125/72 Pulse 73 Temp 37.4 ?C (99.3 ?F) (Oral) Resp 16 Ht 188 cm (6' 2 ) Wt 118 kg (260 lb 2.3 oz) SpO2 93% BMI 33.40 kg/m? General No acute distress. Left Lower Extremity Dressing dry, clean and intact. There is minimal tenderness to palpation about the incision site. Compartments of the thigh and leg are soft and compressible. The patient tolerates passive stretch of the digits. Motor intact EHL/DF/PF. Sensation intact to light touch andrade/sa/sp/dp/t. Brisk capillary refill to toes Labs Recent Labs 12/25/20 0353 12/24/20 0434 12/23/20 2255 NA -- -- 141 K -- -- 3.8 CHLOR -- -- 106* CO2 -- -- 28 BUN -- -- 13 CREAT -- -- 0.87 GLUC -- -- 97 ANION -- -- 7* CA -- -- 9.0 WBC 9.61 -- 8.83 HB 13.1 -- 13.1 HCT 39.8 -- 40.7 PLT 265 -- 296 INR -- 1.1 -- Imaging Trimalleolar left ankle fracture with stable implants in improved length, rotation and alignment Arabella Bishop MD Orthopaedic Surgery December 25, 2020 Pager #[phone]07-05-2021 NoteHNO ID: [id number] Author: Mare Thomas RN Service: Nursing Author Type: Registered Nurse Type: Nursing Progress Note Filed: 12/24/2020 10:20 PM Note Text: xrays done.[facility]07-04-2021 NoteHNO ID: [id number] Author: Blas Tucker MD Service: Orthopaedic Surgery Author Type: Resident Type: Progress Notes Filed: 12/24/2020 7:42 AM Note Text: Orthopaedic Surgery Inpatient Progress Note Assessment Dominic Yu is a 55 year old male who is here with left trimalleolar ankle fracture Plan -Admit to orthopaedics -Maintain splint to left lower extremity: keep dry, clean and intact -Non-weightbearing with the left lower extremity -Ice to the left ankle -Elevation of the left lower extremity -Pain control -Diet NPO for surgery 12/24/2020 -IV fluids -DVT PPX: SCDs to the left lower extremity; hold DVT chemicalPPX -OR on 12/[address] Cedillo for open reduction and internal fixation of the left ankle fracture -Follow-up CT scan of the left ankle Subjective No acute events overnight. Pain well controlled. No fevers, chills, chest pain, or shortness of breath. No new complaints. Physical Examination Vitals BP 136/84 Pulse 72 Temp 36.8 ?C (98.2 ?F) (Oral) Resp 16 Ht 188 cm (6' 2 ) Wt 118 kg (260 lb 2.3 oz) SpO2 93% BMI 33.40 kg/m? General Alert and oriented. No acute distress. Cooperative with interview. Left Lower Extremity Alignment normal. No gross deformities. No swelling, ecchymosis, or erythema. Splint c/d/i SILT Andrade/Sa/DP/SP/T. Motor intact EHL. BCR all digits. Labs Recent Labs 12/24/20 0434 12/23/20 2255 NA -- 141 K -- 3.8 CHLOR -- 106* CO2 -- 28 BUN -- 13 CREAT -- 0.87 GLUC -- 97 ANION -- 7* CA -- 9.0 WBC -- 8.83 HB -- 13.1 HCT -- 40.7 PLT -- 296 INR 1.1 -- Imaging CT scan confirms lateral subluxation of the foot, along with fractures of medial malleolus, distal fibula, and posterior malleolus comprising approximately 35% of the tibial plafond. Blas Tucker MD December 24, 2020 6:58 [facility]09-17-2015 Evaluation note* Diagnosis Onset Date Resolution Status Admit Date Allergic rhinitis, unspecified March 09, 2015 acute February 252023 3:39pm Polanco's esophagus acute 2023 1:00pm Gastro-esophageal reflux disease without esophagitis acute May 05, 2 024 1:00pm [facility] Work Phone: [phone]) 857-473409-17-2015 Evaluation note* Diagnosis Onset Date Resolution Status Admit Date Allergic rhinitis, unspecified March 09, 2015 acute November 23, 2 025 2:43pm Allergic rhinitis, unspecified March 09, 2015 acute January 2:46pm Benign essential HTN acute Augu st 2024 2:46pm CHRISTINE (obstructive sleep apnea) acute February 08 2:46pm Screening PSA (prostate specific antigen) acute February 08 2:46pm Wellness examination acute Augu 2024 2:46pm [facility] Work Phone: Evaluation + Plan note Future Appointments Appointment Date:01/21/2023 08:15:00 AM Scheduled Provider:Cookie Estrada Jr., MD Location:[facility] Appointment Type:URO Office Visit Diagnostic Tests Pending * PSA Total 01/15/22 [facility] evaluation + Plan note Future Appointments Appointment Date:02/10/2024 03:00:00 PM Scheduled Provider:NATALIA KUNZ PA-C Location:[facility] Appointment Type:URO Office Visit Diagnostic Tests Pending * PSA Total 02/04/23 [facility] evaluation noteNo Assessments Information Available [facility] noteNo InformationNo[facility] [employer] Other evaluation note* Diagnosis Onset Date Resolution Status Acute diarrhea acute Screening for colon cancer a cute [facility] Work Phone: evaluation noteNo assessment information available [facility] Work Phone: evalueiikz note* Diagnosis Onset Date Resolution Status CHRISTINE (obstructive sleep apnea) acute [facility] Work Phone: evaluation note* Diagnosis Urologic disorders- Primary Unspecified disorder of urethra and urinary tract Benign prostatic hyperplasia with lower urinary tract symptoms, symptom details unspecified [facility] Diagnosis Benign prostatic hyperplasia with lower urinary tract symptoms, symptom details unspecified- Primary Urologic disorders Unspecified disorder of urethra and urinary tract [facility] Diagnosis Urologic disorders- Primary Unspecified disorder of urethra and urinary tract Benign prostatic hyperplasia with nocturia [facility] N[facility] - Reported* Type Description Date Surgical History left ankle reconstruction [employer] Other Hospital course Narrative No data available for this section [facility] Hospital Discharge instructionsAmbulatory Orders* Referral to Gastroenterology Time Frame: 09/25/23, Location: None Selected [facility] Work Phone: InstructionsNot on filedocumented in this encounter [facility] filedocumented in this encounter [facility]Not on filedocumented in this encounter [facility] on filedocumented in this encounter [facility]Not on filedocumented in this encounter [facility] SystemInstructionsNot on filedocumented in this encounter [facility] No data available for this section [facility] reason for referral (narrative)No reason for referral [facility]: Advance Directives Advance Directive Response Recorded Date/ Time Advance Directives No October 06, 021 1:52pm Advance Directive Response Recorded Date/ Time Advance Directives No October 06, 021 12:52pm Chief Complaint and Reason for Visit Chief Complaint Dysphagia Chief Complaint sick to stomach sinc e friday Reason for Visit Acute diarrhea Screening for colon cancer Chief Complaint sick to stomach sinc e friday Amb Documentation allergy shot Reason for Visit Acute diarrhea Screening for colon cancer Chief Complaint sleep apnea Chief Complaint sleep apnea Allergy shot Reason for Visit CHRISTINE (obstructive sle ep apnea) Chief Complaint Admit Date Allergy shot February 26, 2024 3:39pm hx of polanco's May 05, 2024 1:00pm Reason for Visit Admit Date Allergic rhinitis, unspecified February 26, 2024 3:39pm Polanco's esophagus May 05, 2024 1:00pm Gastro-esophageal reflux disease without esophagitis May 05, 2024 1:00pm Chief Complaint Admit Date allergy shot November 23, 2024 2:43p m Chief Complaint Admit Date allergy shot November 23, 2024 2:43p m wellness/Allergy February 08, 2025 2: 46pm Reason for Visit Admit Date Allergic rhinitis, unspecified November 23, 2024 2:43pm Allergic rhinitis, unspecified February 082024 2:46pm Benign essential HTN February 08, 2025 2 :46pm CHRISTINE (obstructive sleep apnea) January 2:46pm Screening PSA (prostate specific antigen ) February 08, 2025 2:46pm Wellness examination February 08, 2025 2 :46pm Summary Purpose Family History Relationship Condition Age at Onset Recorded Date/T heladio Not Specified No pertinent family history Unknown brother Unknown father Unknown Relationship Condition Age at Onset Recorded Date/T heladio brother Unknown father Unknown Heart disease Unknown Mesothelioma Unknown paternal grandfather Heart disease Unknown mother Polanco's esophagus Unknown Additional Source Comments (unrecognized sect ion and content) No Status Records FoundNo Status Records FoundNo Status Records FoundNo Status Records FoundNo Status Records FoundNo Status Records FoundNo Status Records Found INFORMATION SOURCE (unrecogn ized section and content) DATE CREATED AUTHOR 05/11/2021 [facility] DATE CREATED AUTHOR AUTHOR'S ORGANIZ ATION 08/06/2021 [facility] DATE CREATED AUTHOR AUTHOR'S ORGANIZ ATION 01/11/2022 [facility] DATE CREATED AUTHOR AUTHOR'S ORGANIZ ATION 07/27/[address] [facility] DATE CREATED AUTHOR AUTHOR'S ORGANIZ ATION 08/20/2024 [facility] DATE CREATED AUTHOR AUTHOR'S ORGANIZ ATION 10/02/2024 [facility] DATE CREATED AUTHOR AUTHOR'S ORGANIZ ATION 12/06/20[facility] REASON FOR VISIT (unrecogniz ed section and content) Reason Comments Benign Prostatic Hypertrophy Specialty Diagnoses / Procedures Referred By Ale jaramillo Referred To Contact Urology Diagnoses Benign prostatic hyperplasia with lower urinary tract symptoms, symptom details unspecified Crescencio Perez MD [address] [place] [address] Phone: tel: fax: [facility] [address] [place] [address] Phone: tel: fax: Referral ID Status Reason Start Date Expiration Date Visits Requested Visits Authorized [id number] Pending Review Specialty Services Required 03/03/2024 03/03/2025 1 1 Reason Comments Follow-up Reason Comments Follow-up Care Team (unrecognized sect ion and content) Team Status: Active Member Role Status Dates Crescencio Perez MD Primary Care Provider Active Team Status: Inactive Member Role Status Dates Crescencio Perez MD Primary Care Provide r, Attending Provider Active Start: September 25, 2023 End: September 25, 2023 Team Status: Active Member Role Status Dates Crescencio Perez MD Primary Care Provider Active Start: October 13, 2023 ASHELY Flores Attending Provider Active Start : October 13, 2023 Team Status: Inactive Member Role Status Dates Crescencio Perez MD Primary Care Provide r, Attending Provider Active Start: October 20, 2023 End: October 20, 2023 Team Status: Inactive Member Role Status Dates Crescencio Perez MD Primary Care Provide r, Attending Provider Active Start: January 22, 2024 End: January 22, 2024 Team Status: Active Member Role Status Dates Crescencio Perez MD Primary Care Provider Active Start: January 29, 2024 Natalia Kunz PA-C Attending Provider Active Start: January 29, 2024 Team Status: Inactive Member Role Status Dates Crescencio Perez MD Primary Care Provide r, Attending Provider Active Start: February 26, 2024 End: February 26, 2024 Team Status: Inactive Member Role Status Dates Crescencio Perez MD Primary Care Provider Active Start: May 05, 2024 End: May 05, 2024 Humberto Loaiza MD Attending Provider Active S tart: May 05, 2024 End: May 05, 2024 [employer] Relationship Specialty Start Date End Date Crescencio Perez MD PCP - General Family Medicine 01/29/19 [employer] Relationship Specialty Start Date End Date Crescencio Perez MD PCP - General Family Medicine 01/29/19 [employer] Relationship Specialty Start Date End Date Crescencio Perez MD PCP - General Family Medicine 01/29/19 [employer] Relationship Specialty Start Date End Date Crescencio Perez MD PCP - [facility] 01/29/19 [employer] Maker Relationship Specialty Start Date End Date Crescencio Perez MD PCP - [facility] 01/29/19 [employer] Maker Relationship Specialty Start Date End Date Crescencio Perez MD PCP - [facility] 01/29/19 [employer] Relationship Specialty Start Date End Date Crescencio Perez MD PCP - [facility] 01/29/19 Team Status: Inactive Member Role Status Dates Crescencio Perez MD Primary Care Provide r, Attending Provider Active Start: November 23, 2024 End: November 23, 2024 Team Status: Inactive Member Role Status Dates Crescencio Perez MD Primary Care Provider Active Start: November 23, 2024 End: November 23, 2024 Crescencio Perez MD Attending Provider Active St art: November 23, 2024 End: November 23, 2024 Team Status: Inactive Member Role Status Dates Crescencio Perez MD Primary Care Provider Active Start: February 08, 2025 End: February 08, 2025 Crescencio Perez MD Attending Provider Active St art: February 08, 2025 End: February 08, 2025 Goals (unrecognized section and content) Goals may be documented in a n alternate section FOR RECORDS PERTAINING TO PATIENTS WHO ARE OR HAVE BEEN ENROLLED IN A CHEMICAL DEPENDENCY/SUBSTANCEABUSE PROGRAM, SOME INFORMATION MAY BE OMITTED. This clinical summary was aggregated from multiple sources. Caution should be exercised in using it in the provision of clinical care. This summary normalizes information from multiple sources, and as a consequence, information in this document may materially change the coding, format and clinical context of patient data. In addition, data may be omitted in some cases. CLINICAL DECISIONS SHOULD BE BASED ON THE PRIMARY CLINICAL RECORDS. [employer] [facility]. provides no warranty or guarantee of the accuracy or completeness of information in this document.
[2025-02-12 09:21] LABS: Hematocrit 43.3 % (42.0-54.0); Hemoglobin 14.4 g/dL (14.0-18.0); Immature Granulocytes Abs Auto 0.02 10^3/uL (0.00-0.03); Immature Granulocytes Pct Auto 0.3 % (0.0-0.5); Lymphocytes Absolute Auto 1.1 10^3/uL (1.2-3.8); Mean Corpuscular HGB Conc 33.3 g/dL (29.9-35.2); Mean Corpuscular Hemoglobin 28.8 pg (25.9-34.0); Mean Corpuscular Volume 86.6 fL (80.0-94.0); Platelet Count 264 10^3/uL (150-450); Red Blood Count 5.00 10^6/uL (4.70-6.10); White Blood Count 6.9 10^3/uL (4.0-11.0)
[2025-02-12 10:05] LABS: Alanine Aminotransferase 21 U/L (16-63); Albumin Globulin Ratio 1.2; Albumin Level 3.8 g/dL (3.4-5.0); Alkaline Phosphatase 76 U/L (46-116); Anion Gap 11.0; Aspartate Amino Transferase 11 U/L (15-37); Blood Urea Nitrogen 14.0 mg/dL (7.0-18.0); Calcium 8.7 mg/dL (8.5-10.1); Carbon Dioxide 29.3 mmol/L (21.0-32.0); Chloride 104 mmol/L (98-107); Cholesterol 154 mg/dL (<=200); Estimated GFR (African America >60 (>=60 mL/min/1.73m^2); Estimated GFR (Non-African Ame >60 (>=60 mL/min/1.73m^2); Globulin 3.3 g/dL; Glucose 96 mg/dL (74-106); HDL Cholesterol 53 mg/dL (40-60); Potassium 4.3 mmol/L (3.5-5.1); Sodium 140 mmol/L (136-145); Total Protein 7.1 g/dL (6.4-8.2); Triglycerides 45 mg/dL (<=150); VLDL CHOLESTEROL 9.0 mg/dL
== END 2025-02-12 08:47 | disposition home or self-care (01) ==
LOC: LAB 08:47
PROVIDERS: PCP Family Medicine; Visit Provider Family Medicine
DX: Z00.00 Encounter for general adult medical examination without abnormal findings (principal); I10 Essential (primary) hypertension; Z12.5 Encounter for screening for malignant neoplasm of prostate
CPT/HCPCS: 36415; 80053; 80061; 82043; 82570; 85025; G0103